=== PATIENT | male | born 1945 | race Caucasian/White ===

== ENCOUNTER → 2021-12-12 | Outpatient (REF) | payer MEDICARE, BC ==
[2021-12-12 17:48] LABS: HEMATOCRIT 29.6 % (42.0-52.0); HEMOGLOBIN 9.6 g/dl (13.5-17.5); MEAN CORPUSCULAR HEMOGLOBIN 29.8 pg (27.0-33.0); MEAN CORPUSCULAR HGB CONC 32.4 g/dl (32.0-36.5); MEAN CORPUSCULAR VOLUME 91.9 fl (80.0-96.0); PLATELET COUNT, AUTOMATED 181 10^3/uL (150-450); RED BLOOD COUNT 3.22 10^6/uL (4.30-6.10); WHITE BLOOD COUNT 16.1 10^3/uL (4.0-10.0)
[2021-12-12 18:15] LABS: ALBUMIN 3.3 GM/DL (3.2-5.2); ALT/SGPT 17 U/L (12-78); BILIRUBIN,TOTAL 0.5 MG/DL (0.2-1.0); BLOOD UREA NITROGEN 68 MG/DL (7-18); CALCIUM LEVEL 8.3 MG/DL (8.8-10.2); CARBON DIOXIDE LEVEL 23 MEQ/L (21-32); CHLORIDE LEVEL 111 MEQ/L (98-107); CHOLESTEROL LEVEL 90 MG/DL (<200); CHOLESTEROL RISK RATIO 1.914 (<5); CREATININE FOR GFR 2.37 MG/DL (0.70-1.30); FERRITIN 50 NG/ML (26-388); FREE T4 1.11 NG/DL (0.76-1.46); GLOMERULAR FILTRATION RATE 28.6 (>42); GLUCOSE, FASTING 136 MG/DL (70-100); HDL CHOLESTEROL 47 MG/DL (>40); IRON (FE) 35 UG/DL (65-175); LDL CHOLESTEROL 28 MG/DL (<100); NON-HDL-C 43 MG/DL; NT-PRO BNP 17508 PG/ML (<450); PERCENT SATURATION 17.5 % (19.7-50.0); POTASSIUM SERUM 3.9 MEQ/L (3.5-5.1); SODIUM LEVEL 141 MEQ/L (136-145); TOTAL IRON BINDING CAPACITY 200 UG/DL (250-450); TOTAL PROTEIN 5.6 GM/DL (6.4-8.2); TRIGLYCERIDES LEVEL 76 MG/DL (<150)
[2021-12-12 18:20] LABS: HEMOGLOBIN A1c 7.8 %
[2021-12-12 18:30] LABS: FOLATE > 24.0 NG/ML (>5.4); VITAMIN B12 LEVEL 581 PG/ML (247-911)
== END ==
LOC: M SFHCADAM 14:45
PROVIDERS: ATTEND Family Medicine
DX: L97.424 Non-pressure chronic ulcer of left heel and midfoot with necrosis of bone (principal); E08.621 Diabetes mellitus due to underlying condition with foot ulcer; M1A.30X0 Chronic gout due to renal impairment, unspecified site, without tophus (tophi); D64.89 Other specified anemias; I48.91 Unspecified atrial fibrillation; I73.9 Peripheral vascular disease, unspecified; I50.20 Unspecified systolic (congestive) heart failure

== ENCOUNTER → 2022-02-20 | Outpatient (CLI) | payer MEDICARE, BC ==
[~2022-02-20] MED LIST: ACET1TAB55 PO; ALLO100T PO; ATOR40TA75 PO; CARV3.12 PO; CVS1CAP2 PO; ELIQ5TAB PO; ENTR1TAB4 PO; EZET10TA21 PO; FLAX100012 PO; FOLI1TAB11 PO; INSUHUMDS SC; INSULANT SC; JARD1TAB PO; LEXA1TAB PO; MELA5TAB47 PO; PANT40TA29 PO; PLAV1TAB2 PO; TORS20TA2 PO; UBID200C PO
== END ==
LOC: M LABSMTC 10:55
PROVIDERS: ATTEND Anesthesiology
DX: Z01.818 Encounter for other preprocedural examination (principal); Z11.52 Encounter for screening for COVID-19

== ENCOUNTER → 2022-02-25 | Outpatient (CLI) | payer MEDICARE, BC ==
[~2022-02-25] MED LIST changes: +ISOVUE-300 61% 50ML VIAL As Ordered ONE; +LIDOCAINE 1% MDV 20ML VIAL As Ordered ONE; +MIDAZOLAM INJ 2MG/2ML VIAL (J2250 PER 1MG) As Ordered ONE; +NS 1,000 ML IV SCH; +ONDANSETRON 4MG 2ML VIAL As Ordered ONE; +PERCOCET 5MG/325MG TAB As Ordered ONE; +PROMETHAZINE 25MG/ML 1ML VIAL As Ordered ONE; +diphenhydrAMINE 50MG/ML VIAL (J1200) As Ordered ONE; +fentaNYL 100 MCG/2 ML INJECTION As Ordered ONE; +hydrALAZINE 20MG/ML 1ML VIAL (J0360 PER 20MG) As Ordered ONE
[2022-02-25 15:00] VITALS: BP 154/69
== END ==
LOC: M IRPRO 06:58
PROVIDERS: ATTEND Radiology Diagnostic Radiology
DX: I70.249 Atherosclerosis of native arteries of left leg with ulceration of unspecified site (principal); T88.9XXA Complication of surgical and medical care, unspecified, initial encounter; Z53.09 Procedure and treatment not carried out because of other contraindication; Z79.01 Long term (current) use of anticoagulants; Z79.4 Long term (current) use of insulin; Z79.899 Other long term (current) drug therapy; Y84.9 Medical procedure, unspecified as the cause of abnormal reaction of the patient, or of later complication, without mention of misadventure at the time of the procedure
CPT/HCPCS: 36246; 99152; 99153; C1769; C1894; J0360; J1200; J1644; J2250; J2405; J2550; J3010; Q9967

== ENCOUNTER → 2022-03-06 | Outpatient (REF) | payer MEDICARE, BC ==
[~2022-03-06] MED LIST changes: +AMIT25TA17 PO; +CARV25TA PO; +CETI-24 PO; +CLOP75TA99 PO; +DILA1INJ2 IV; +DILA4TAB13 PO; +DOXY100T PO; +GABA-282 PO; +HYDR2TAB2 PO; +INSUDET SC; -ISOVUE-300 61% 50ML VIAL As Ordered ONE; +LEXA5TAB13 PO; -LIDOCAINE 1% MDV 20ML VIAL As Ordered ONE; +LINE1TAB PO; +LINE1TAB6 PO; +MAGN400T2 PO; +MAGN400T33 PO; +META1POW PO; -MIDAZOLAM INJ 2MG/2ML VIAL (J2250 PER 1MG) As Ordered ONE; +MIRA1POW3 PO; -NS 1,000 ML IV SCH; -ONDANSETRON 4MG 2ML VIAL As Ordered ONE; +OXYC-517 PO; -PERCOCET 5MG/325MG TAB As Ordered ONE; -PLAV1TAB2 PO; -PROMETHAZINE 25MG/ML 1ML VIAL As Ordered ONE; +RA M10TA PO; +RAME8TAB2 PO; +ROZE8TAB16 PO; +SENN18TA PO; +SENN8.6T28 PO; +SODI650T PO; -diphenhydrAMINE 50MG/ML VIAL (J1200) As Ordered ONE; -fentaNYL 100 MCG/2 ML INJECTION As Ordered ONE; -hydrALAZINE 20MG/ML 1ML VIAL (J0360 PER 20MG) As Ordered ONE
== END ==
LOC: M SFHCWOUN 12:19
PROVIDERS: ATTEND Physician Assistant
DX: S91.104A Unspecified open wound of right lesser toe(s) without damage to nail, initial encounter (principal); X58.XXXA Exposure to other specified factors, initial encounter; Y92.9 Unspecified place or not applicable; M86.171 Other acute osteomyelitis, right ankle and foot

== ENCOUNTER → 2022-03-13 | Outpatient (REF) | payer MEDICARE, BC | LOC: M SFHCWOUN 12:24 | PROVIDERS: ATTEND Physician Assistant | DX: S91.104A Unspecified open wound of right lesser toe(s) without damage to nail, initial encounter (principal); X58.XXXA Exposure to other specified factors, initial encounter; Y92.9 Unspecified place or not applicable; Y93.9 Activity, unspecified; Y99.9 Unspecified external cause status ==

== ENCOUNTER → 2022-03-14 | Outpatient (REF) | payer MEDICARE, BC ==
[~2022-03-14] MED LIST changes: -AMIT25TA17 PO; -CARV25TA PO; -CETI-24 PO; -CLOP75TA99 PO; -DILA1INJ2 IV; -DILA4TAB13 PO; -DOXY100T PO; -GABA-282 PO; -HYDR2TAB2 PO; -INSUDET SC; -LEXA5TAB13 PO; -LINE1TAB PO; -LINE1TAB6 PO; -MAGN400T2 PO; -MAGN400T33 PO; -META1POW PO; -MIRA1POW3 PO; -OXYC-517 PO; +PLAV1TAB2 PO; -RA M10TA PO; -RAME8TAB2 PO; -ROZE8TAB16 PO; -SENN18TA PO; -SENN8.6T28 PO; -SODI650T PO
== END ==
LOC: M LAB REF 13:15
PROVIDERS: ATTEND Podiatrist Foot & Ankle Surgery
DX: S91.104A Unspecified open wound of right lesser toe(s) without damage to nail, initial encounter (principal); X58.XXXA Exposure to other specified factors, initial encounter; Y92.9 Unspecified place or not applicable; Y93.9 Activity, unspecified; Y99.9 Unspecified external cause status

== ENCOUNTER → 2022-03-19 | Outpatient (POV) | payer MEDICARE, BC ==
[~2022-03-19] VITALS: Ht 182.9 cm; Wt 103.1 kg
[~2022-03-19] MED LIST changes: +CARV25TA PO; +CETI-24 PO; +LEXA5TAB13 PO; +RA M10TA PO
[2022-03-19 12:55] VITALS: BP 136/63
== END ==
LOC: M IRPOV 12:44
PROVIDERS: ATTEND Radiology Diagnostic Radiology
DX: Z48.812 Encounter for surgical aftercare following surgery on the circulatory system (principal); I70.25 Atherosclerosis of native arteries of other extremities with ulceration; L97.419 Non-pressure chronic ulcer of right heel and midfoot with unspecified severity; Z89.421 Acquired absence of other right toe(s)

== ENCOUNTER → 2022-03-21 | Outpatient (CLI) | payer MEDICARE, BC ==
[~2022-03-21] MED LIST changes: -CARV25TA PO; -CETI-24 PO; -LEXA5TAB13 PO; -RA M10TA PO
== END ==
LOC: M LABSMTC 11:34
PROVIDERS: ATTEND Anesthesiology
DX: Z01.812 Encounter for preprocedural laboratory examination (principal); Z11.52 Encounter for screening for COVID-19

== ENCOUNTER 2022-03-28 17:27 | Inpatient (IN) | payer MEDICARE, BC ==
[~2022-03-28] VITALS: Ht 182.9 cm; Wt 98.1 kg
[~2022-03-28 17:27] MED LIST changes: +CARV25TA PO; +CETI-24 PO; +CLOP75TA99 PO; +GABA-282 PO; +LEXA5TAB13 PO; +LINE1TAB PO; +MAGN400T2 PO; +OXYC-517 PO; -PLAV1TAB2 PO; +RA M10TA PO; +SODI650T PO
[2022-03-28] MEDS: INSULIN LISPRO (NovoLOG) PER UNIT SC SCH ×2 (17:30→21:00)
[2022-03-28 17:55] VITALS: BP 119/55
[2022-03-28] MEDS ORDERED: GLUCOSE 4GM CHEW TABLET PO PRN (18:55)
[2022-03-28] MEDS ORDERED: GLUCAGON INJ 1MG VIAL SC PRN (18:55)
[2022-03-28 19:07] LABS: HEMATOCRIT 27.5 % (42.0-52.0); HEMOGLOBIN 8.7 g/dl (13.5-17.5); MEAN CORPUSCULAR HEMOGLOBIN 29.5 pg (27.0-33.0); MEAN CORPUSCULAR HGB CONC 31.6 g/dl (32.0-36.5); MEAN CORPUSCULAR VOLUME 93.2 fl (80.0-96.0); PLATELET COUNT, AUTOMATED 285 10^3/uL (150-450); RED BLOOD COUNT 2.95 10^6/uL (4.30-6.10); WHITE BLOOD COUNT 22.6 10^3/uL (4.0-10.0)
[2022-03-28 19:11] LABS: INR 2.11; PARTIAL THROMBOPLASTIN TIME 35.7 SECONDS (24.8-34.2)
[2022-03-28 19:21] LABS: ALBUMIN 2.7 GM/DL (3.2-5.2); BILIRUBIN,TOTAL 0.7 MG/DL (0.2-1.0); CREATININE FOR GFR 2.85 MG/DL (0.70-1.30); GLOMERULAR FILTRATION RATE 23.1 (>42); POTASSIUM SERUM 4.9 MEQ/L (3.5-5.1); TOTAL PROTEIN 5.5 GM/DL (6.4-8.2)
[2022-03-28] MEDS: CARVedilol 12.5 MG TAB PO SCH (21:00)
[2022-03-28] MEDS ORDERED: LEVEMIR (INSULIN DETEMIR) 1 UNITS/0.01ML SC SCH (21:00)
[2022-03-28] MEDS ORDERED: GABA-282 PO (21:43)
[2022-03-28] MEDS ORDERED: LINE1TAB6 PO (21:43)
[2022-03-28] MEDS ORDERED: SODI650T PO (21:43)
[2022-03-28] MEDS ORDERED: MAGN400T33 PO (21:43)
[2022-03-28] MEDS ORDERED: DOXY100T PO (21:43)
[2022-03-28] MEDS ORDERED: HOME MED LIST COMPLETE! XX SCH (21:45)
[2022-03-28 22:00] VITALS: BP 113/49
[2022-03-28] MEDS ORDERED: VANCOMYCIN HCL 1,000 MG, VIAL MATE ADAPTER 1 EACH in NS 250 ML IV SCH (23:00)
[2022-03-28] MEDS: ATORVASTATIN 20 MG TAB PO SCH (23:15)
[2022-03-28] MEDS: APIXABAN 5 MG TAB (ELIQUIS) PO SCH (23:15)
[2022-03-28] MEDS: SODIUM BICARBONATE 325 MG TAB PO SCH (23:16)
[2022-03-28] MEDS: EZETIMIBE 10MG TABLET (ZETIA) PO SCH (23:16)
[2022-03-29] MEDS ORDERED: VANCOMYCIN HCL 1,000 MG, VIAL MATE ADAPTER 1 EACH in NS 250 ML IV ONE ×3
[2022-03-29 06:00] VITALS: BP 111/47
[2022-03-29 07:02] LABS: BASO % 0.2 % (0.0-1.0); EOS # 0.1 10^3/uL (0.0-0.5); EOS % 0.4 % (0.0-3.0); HEMATOCRIT 26.3 % (42.0-52.0); HEMOGLOBIN 8.5 g/dl (13.5-17.5); LYMPH # 0.7 10^3/uL (1.5-5.0); LYMPH % 4.3 % (24.0-44.0); MEAN CORPUSCULAR HEMOGLOBIN 29.6 pg (27.0-33.0); MEAN CORPUSCULAR HGB CONC 32.3 g/dl (32.0-36.5); MEAN CORPUSCULAR VOLUME 91.6 fl (80.0-96.0); MONO # 1.5 10^3/uL (0.0-0.8); MONO % 8.5 % (2.0-8.0); NEUTROPHILS # 14.6 10^3/uL (1.5-8.5); PLATELET COUNT, AUTOMATED 260 10^3/uL (150-450); RED BLOOD COUNT 2.87 10^6/uL (4.30-6.10)
[2022-03-29 07:53] LABS: CALCIUM LEVEL 8.4 MG/DL (8.8-10.2); CREATININE FOR GFR 2.8 MG/DL (0.70-1.30); GLOMERULAR FILTRATION RATE 23.6 (>42); POTASSIUM SERUM 4.8 MEQ/L (3.5-5.1)
[2022-03-29] MEDS: CARVedilol 12.5 MG TAB PO SCH ×2 (08:03→21:00)
[2022-03-29] MEDS: INSULIN LISPRO (NovoLOG) PER UNIT SC SCH ×3 (08:14→17:37)
[2022-03-29] MEDS: APIXABAN 5 MG TAB (ELIQUIS) PO SCH (08:14)
[2022-03-29] MEDS: GABAPENTIN 300 MG CAP PO SCH (08:14)
[2022-03-29] MEDS: ESCITALOPRAM OXALATE 5MG TABLET (LEXAPRO) PO SCH (08:14)
[2022-03-29] MEDS: CLOPIDOGREL 75 MG TAB PO SCH (08:14)
[2022-03-29] MEDS: SODIUM BICARBONATE 325 MG TAB PO SCH ×2 (08:15→20:05)
[2022-03-29] MEDS: PANTOPRAZOLE 40MG TAB (PROTONIX) PO SCH (08:15)
[2022-03-29] MEDS: allopurinoL 100 MG TAB PO SCH (08:15)
[2022-03-29] MEDS: FOLIC ACID 1MG TAB PO SCH (08:15)
[2022-03-29] MEDS: LEVEMIR (INSULIN DETEMIR) 1 UNITS/0.01ML SC SCH (09:00)
[2022-03-29 14:00] VITALS: BP 108/44
[2022-03-29] MEDS ORDERED: LEVEMIR (INSULIN DETEMIR) 1 UNITS/0.01ML SC ONE (17:00)
[2022-03-29] MEDS: TORSEMIDE 20 MG TAB PO SCH (17:38)
[2022-03-29] MEDS ORDERED: oxyCODONE 5MG TAB PO PRN (19:35)
[2022-03-29] MEDS: carisoprodoL 350 MG TAB PO PRN (20:04)
[2022-03-29] MEDS: EZETIMIBE 10MG TABLET (ZETIA) PO SCH (20:04)
[2022-03-29] MEDS: RAMELTEON 8 MG TAB (ROZEREM) PO PRN (20:04)
[2022-03-29] MEDS: ATORVASTATIN 20 MG TAB PO SCH (20:05)
[2022-03-29] MEDS: ACETAMINOPHEN TAB 650MG DOSE (2X325MG) PO PRN (20:05)
[2022-03-29 21:26] VITALS: BP 108/43
[2022-03-30] VITALS (10 sets, daily range): BP systolic 118–144; BP diastolic 47–64; O2SAT 96
[2022-03-30] MEDS ORDERED: VANCOMYCIN HCL 500 MG in D5W MINI-BAG PLUS 100 ML IV SCH ×2
[2022-03-30 07:18] LABS: BASO % 0.3 % (0.0-1.0); EOS # 0.3 10^3/uL (0.0-0.5); EOS % 2.4 % (0.0-3.0); HEMATOCRIT 25.5 % (42.0-52.0); LYMPH # 1.3 10^3/uL (1.5-5.0); MEAN CORPUSCULAR HEMOGLOBIN 29.2 pg (27.0-33.0); MEAN CORPUSCULAR HGB CONC 31.4 g/dl (32.0-36.5); MEAN CORPUSCULAR VOLUME 93.1 fl (80.0-96.0); MONO % 12.6 % (2.0-8.0); NEUTROPHILS # 10.7 10^3/uL (1.5-8.5); NEUTROPHILS % 74.9 % (36.0-66.0); PLATELET COUNT, AUTOMATED 251 10^3/uL (150-450); RED BLOOD COUNT 2.74 10^6/uL (4.30-6.10); WHITE BLOOD COUNT 14.3 10^3/uL (4.0-10.0)
[2022-03-30] MEDS ORDERED: LIDOCAINE 2% 100MG/5ML SDV (FOR ANES.) As Ordered ONE (07:24)
[2022-03-30] MEDS ORDERED: fentaNYL 100 MCG/2 ML INJECTION As Ordered ONE (07:24)
[2022-03-30] MEDS ORDERED: propofoL 200 MG/20 ML VIAL As Ordered ONE (07:24)
[2022-03-30] MEDS ORDERED: ONDANSETRON 4MG 2ML VIAL As Ordered ONE (07:25)
[2022-03-30 07:26] LABS: CALCIUM LEVEL 8.2 MG/DL (8.8-10.2); CREATININE FOR GFR 2.76 MG/DL (0.70-1.30)
[2022-03-30] MEDS ORDERED: LIDOCAINE 1% MDV 20ML VIAL As Ordered ONE (07:28)
[2022-03-30] MEDS ORDERED: BUPIVACAINE HCL 0.5% 30ML VIAL As Ordered ONE (07:28)
[2022-03-30] MEDS: INSULIN LISPRO (NovoLOG) PER UNIT SC SCH ×4 (07:30→21:00)
[2022-03-30 08:13] LABS: MONO # 1.8 10^3/uL (0.0-0.8)
[2022-03-30 08:17] LABS: CRENATED RBC 2+; OVALOCYTES 2+
[2022-03-30 08:18] LABS: PLATELET CLUMPS SMALL AMT; PLATELET ESTIMATE NORMAL (NORMAL); POIKILOCYTOSIS 2+; SCHISTOCYTES 1+
[2022-03-30] MEDS ORDERED: INSULIN LISPRO (NovoLOG) PER UNIT SC PRN (08:40)
[2022-03-30] MEDS ORDERED: ONDANSETRON 4MG 2ML VIAL IV PRN (08:40)
[2022-03-30] MEDS ORDERED: oxyCODONE 5MG TAB PO PRN (08:40)
[2022-03-30] MEDS ORDERED: fentaNYL 100 MCG/2 ML INJECTION IV PRN (08:40)
[2022-03-30] MEDS: LEVEMIR (INSULIN DETEMIR) 1 UNITS/0.01ML SC SCH (09:00)
[2022-03-30] MEDS: CARVedilol 12.5 MG TAB PO SCH ×2 (09:00→20:06)
[2022-03-30] MEDS: CLOPIDOGREL 75 MG TAB PO SCH (09:00)
[2022-03-30] MEDS ORDERED: ePHEDrine SULFATE 25 MG/5 ML(5MG/ML) SYRINGE As Ordered ONE (09:04)
[2022-03-30] MEDS: PANTOPRAZOLE 40MG TAB (PROTONIX) PO SCH (10:56)
[2022-03-30] MEDS: TORSEMIDE 20 MG TAB PO SCH ×2 (10:57→17:15)
[2022-03-30] MEDS: ESCITALOPRAM OXALATE 5MG TABLET (LEXAPRO) PO SCH (10:57)
[2022-03-30] MEDS: allopurinoL 100 MG TAB PO SCH (10:57)
[2022-03-30] MEDS: SODIUM BICARBONATE 325 MG TAB PO SCH ×2 (10:57→20:05)
[2022-03-30] MEDS: FOLIC ACID 1MG TAB PO SCH (10:57)
[2022-03-30] MEDS: GABAPENTIN 300 MG CAP PO SCH (10:57)
[2022-03-30] MEDS ORDERED: VANCOMYCIN HCL 1,000 MG, VIAL MATE ADAPTER 1 EACH in NS 250 ML IV SCH (12:00)
[2022-03-30] MEDS: traMADol 50 MG TAB PO PRN ×2 (13:14→20:08)
[2022-03-30] MEDS: carisoprodoL 350 MG TAB PO PRN (14:56)
[2022-03-30] MEDS ORDERED: MORPHINE 2 MG/ML 1ML VIAL IV ONE (18:00)
[2022-03-30] MEDS ORDERED: GABAPENTIN 100 MG CAP PO ONE (20:00)
[2022-03-30] MEDS: EZETIMIBE 10MG TABLET (ZETIA) PO SCH (20:07)
[2022-03-30] MEDS: ATORVASTATIN 20 MG TAB PO SCH (20:07)
[2022-03-30] MEDS: RAMELTEON 8 MG TAB (ROZEREM) PO PRN (20:07)
[2022-03-30] MEDS: ACETAMINOPHEN TAB 650MG DOSE (2X325MG) PO PRN (20:08)
[2022-03-31 02:00] VITALS: BP 125/55
[2022-03-31] MEDS: ACETAMINOPHEN TAB 650MG DOSE (2X325MG) PO PRN ×2 (04:23→12:36)
[2022-03-31] MEDS: traMADol 50 MG TAB PO PRN ×2 (04:24→12:36)
[2022-03-31 06:00] VITALS: BP 119/52
[2022-03-31 07:06] LABS: BASO % 0.1 % (0.0-1.0); EOS # 0.4 10^3/uL (0.0-0.5); EOS % 2.4 % (0.0-3.0); HEMATOCRIT 25.8 % (42.0-52.0); LYMPH # 0.9 10^3/uL (1.5-5.0); LYMPH % 5.5 % (24.0-44.0); MEAN CORPUSCULAR VOLUME 93.5 fl (80.0-96.0); MONO # 1.3 10^3/uL (0.0-0.8); MONO % 8.4 % (2.0-8.0); NEUTROPHILS # 12.7 10^3/uL (1.5-8.5); NEUTROPHILS % 82.9 % (36.0-66.0); PLATELET COUNT, AUTOMATED 255 10^3/uL (150-450); RED BLOOD COUNT 2.76 10^6/uL (4.30-6.10); WHITE BLOOD COUNT 15.4 10^3/uL (4.0-10.0)
[2022-03-31 07:41] LABS: CALCIUM LEVEL 7.8 MG/DL (8.8-10.2); CREATININE FOR GFR 2.64 MG/DL (0.70-1.30); GLOMERULAR FILTRATION RATE 25.2 (>42); POTASSIUM SERUM 4.4 MEQ/L (3.5-5.1)
[2022-03-31] MEDS: INSULIN LISPRO (NovoLOG) PER UNIT SC SCH ×4 (08:36→20:31)
[2022-03-31] MEDS: CLOPIDOGREL 75 MG TAB PO SCH (08:36)
[2022-03-31] MEDS: LEVEMIR (INSULIN DETEMIR) 1 UNITS/0.01ML SC SCH (08:36)
[2022-03-31] MEDS: ESCITALOPRAM OXALATE 5MG TABLET (LEXAPRO) PO SCH (08:36)
[2022-03-31] MEDS: GABAPENTIN 300 MG CAP PO SCH (08:36)
[2022-03-31] MEDS: FOLIC ACID 1MG TAB PO SCH (08:37)
[2022-03-31] MEDS: TORSEMIDE 20 MG TAB PO SCH ×2 (08:37→17:20)
[2022-03-31] MEDS: PANTOPRAZOLE 40MG TAB (PROTONIX) PO SCH (08:37)
[2022-03-31] MEDS: allopurinoL 100 MG TAB PO SCH (08:37)
[2022-03-31] MEDS: CARVedilol 12.5 MG TAB PO SCH ×2 (08:37→20:29)
[2022-03-31] MEDS: SODIUM BICARBONATE 325 MG TAB PO SCH ×2 (08:37→20:28)
[2022-03-31] MEDS: NORCO, ANEXSIA 5/325MG TABLET (HYDROcodone/ACETAMINOPHEN) PO PRN ×2 (08:41→20:29)
[2022-03-31 10:00] VITALS: BP 107/35
[2022-03-31] MEDS: APIXABAN 5 MG TAB (ELIQUIS) PO SCH ×2 (10:01→20:28)
[2022-03-31 14:00] VITALS: BP 107/36
[2022-03-31] MEDS ORDERED: BISACODYL 10 MG SUPP PR PRN (19:30)
[2022-03-31] MEDS: ATORVASTATIN 20 MG TAB PO SCH (20:28)
[2022-03-31] MEDS: RAMELTEON 8 MG TAB (ROZEREM) PO PRN (20:28)
[2022-03-31] MEDS: DOCUSATE SODIUM 100MG CAPSULE PO SCH (20:28)
[2022-03-31] MEDS: EZETIMIBE 10MG TABLET (ZETIA) PO SCH (20:28)
[2022-03-31] MEDS: carisoprodoL 350 MG TAB PO PRN (20:28)
[2022-03-31 21:00] VITALS: O2SAT 96
[2022-03-31 22:00] VITALS: BP 109/38
[2022-03-31] MEDS: VANCOMYCIN HCL 750 MG, VIAL MATE ADAPTER 1 EACH in D5W 250 ML IV SCH (22:44)
[2022-04-01] VITALS (8 sets, daily range): BP systolic 110–121; BP diastolic 44–80
[2022-04-01] MEDS: carisoprodoL 350 MG TAB PO PRN ×2 (05:47→23:07)
[2022-04-01] MEDS: traMADol 50 MG TAB PO PRN ×2 (05:48→22:44)
[2022-04-01 06:01] LABS: BASO % 0.2 % (0.0-1.0); EOS # 0.5 10^3/uL (0.0-0.5); EOS % 2.7 % (0.0-3.0); HEMATOCRIT 23.3 % (42.0-52.0); HEMOGLOBIN 7.4 g/dl (13.5-17.5); LYMPH # 1.4 10^3/uL (1.5-5.0); LYMPH % 8.2 % (24.0-44.0); MEAN CORPUSCULAR HEMOGLOBIN 29.4 pg (27.0-33.0); MEAN CORPUSCULAR HGB CONC 31.8 g/dl (32.0-36.5); MEAN CORPUSCULAR VOLUME 92.5 fl (80.0-96.0); MONO # 1.5 10^3/uL (0.0-0.8); MONO % 8.7 % (2.0-8.0); NEUTROPHILS # 13.4 10^3/uL (1.5-8.5); NEUTROPHILS % 79.5 % (36.0-66.0); PLATELET COUNT, AUTOMATED 252 10^3/uL (150-450); RED BLOOD COUNT 2.52 10^6/uL (4.30-6.10); WHITE BLOOD COUNT 16.8 10^3/uL (4.0-10.0)
[2022-04-01 06:38] LABS: CALCIUM LEVEL 7.6 MG/DL (8.8-10.2); CREATININE FOR GFR 2.6 MG/DL (0.70-1.30); GLOMERULAR FILTRATION RATE 25.7 (>42); POTASSIUM SERUM 4.2 MEQ/L (3.5-5.1)
[2022-04-01] MEDS: allopurinoL 100 MG TAB PO SCH (08:18)
[2022-04-01] MEDS: GABAPENTIN 300 MG CAP PO SCH (08:18)
[2022-04-01] MEDS: TORSEMIDE 20 MG TAB PO SCH ×2 (08:19→17:39)
[2022-04-01] MEDS: LACTOBACILLUS ACIDOPHILUS CAP (BACID) PO SCH (08:19)
[2022-04-01] MEDS: CLOPIDOGREL 75 MG TAB PO SCH (08:19)
[2022-04-01] MEDS: SODIUM BICARBONATE 325 MG TAB PO SCH ×2 (08:19→21:00)
[2022-04-01] MEDS: ESCITALOPRAM OXALATE 5MG TABLET (LEXAPRO) PO SCH (08:19)
[2022-04-01] MEDS: DOCUSATE SODIUM 100MG CAPSULE PO SCH ×2 (08:19→20:59)
[2022-04-01] MEDS: APIXABAN 5 MG TAB (ELIQUIS) PO SCH ×2 (08:19→20:59)
[2022-04-01] MEDS: FOLIC ACID 1MG TAB PO SCH (08:19)
[2022-04-01] MEDS: PANTOPRAZOLE 40MG TAB (PROTONIX) PO SCH (08:19)
[2022-04-01] MEDS: INSULIN LISPRO (NovoLOG) PER UNIT SC SCH ×4 (08:20→20:56)
[2022-04-01] MEDS: MIRALAX *UNIT DOSE* 17GM PACKET PO SCH (08:20)
[2022-04-01] MEDS: CARVedilol 12.5 MG TAB PO SCH ×2 (08:24→21:00)
[2022-04-01] MEDS: LEVEMIR (INSULIN DETEMIR) 1 UNITS/0.01ML SC SCH (08:25)
[2022-04-01] MEDS: NORCO, ANEXSIA 5/325MG TABLET (HYDROcodone/ACETAMINOPHEN) PO PRN ×2 (12:12→21:02)
[2022-04-01] MEDS: ATORVASTATIN 20 MG TAB PO SCH (20:59)
[2022-04-01] MEDS: EZETIMIBE 10MG TABLET (ZETIA) PO SCH (21:00)
[2022-04-01] MEDS: VANCOMYCIN HCL 750 MG, VIAL MATE ADAPTER 1 EACH in D5W 250 ML IV SCH (22:44)
[2022-04-01] MEDS ORDERED: oxyCODONE 5MG TAB PO ONE (23:25)
[2022-04-01] MEDS: ONDANSETRON 4MG 2ML VIAL IV PRN (23:31)
[2022-04-02] VITALS (9 sets, daily range): BP systolic 96–109; BP diastolic 45–56
[2022-04-02] MEDS ORDERED: MORPHINE 2 MG/ML 1ML VIAL IV ONE
[2022-04-02] MEDS ORDERED: oxyCODONE 5MG TAB PO ONE ×2 (00:10→15:40)
[2022-04-02] MEDS ORDERED: GABAPENTIN 100 MG CAP PO ONE (00:30)
[2022-04-02] MEDS ORDERED: ACETAMINOPHEN 500 MG TAB PO ONE (00:30)
[2022-04-02 06:14] LABS: BASO % 0.2 % (0.0-1.0); EOS # 0.3 10^3/uL (0.0-0.5); LYMPH # 1.4 10^3/uL (1.5-5.0); LYMPH % 8.5 % (24.0-44.0); MEAN CORPUSCULAR HGB CONC 31.8 g/dl (32.0-36.5); MEAN CORPUSCULAR VOLUME 91.3 fl (80.0-96.0); MONO # 1.4 10^3/uL (0.0-0.8); MONO % 8.5 % (2.0-8.0); NEUTROPHILS # 12.9 10^3/uL (1.5-8.5); NEUTROPHILS % 80.1 % (36.0-66.0); PLATELET COUNT, AUTOMATED 231 10^3/uL (150-450); RED BLOOD COUNT 2.41 10^6/uL (4.30-6.10); WHITE BLOOD COUNT 16.2 10^3/uL (4.0-10.0)
[2022-04-02 07:01] LABS: CALCIUM LEVEL 7.6 MG/DL (8.8-10.2); CREATININE FOR GFR 2.69 MG/DL (0.70-1.30); GLOMERULAR FILTRATION RATE 24.7 (>42); POTASSIUM SERUM 4.3 MEQ/L (3.5-5.1)
[2022-04-02] MEDS ORDERED: HYDROMORPHONE HCL 0.5 MG/ 0.5 ML SYRINGE (J1170 PER 1) IV ONE (08:05)
[2022-04-02] MEDS ORDERED: oxyCODONE 5MG TAB PO PRN ×2 (08:05→15:40)
[2022-04-02] MEDS ORDERED: NALOXONE INJ 0.4MG/1ML VIAL (J2310 PER 1MG) IV PRN (08:05)
[2022-04-02] MEDS: INSULIN LISPRO (NovoLOG) PER UNIT SC SCH ×4 (08:41→21:00)
[2022-04-02] MEDS: LEVEMIR (INSULIN DETEMIR) 1 UNITS/0.01ML SC SCH (08:43)
[2022-04-02] MEDS: MIRALAX *UNIT DOSE* 17GM PACKET PO SCH (08:43)
[2022-04-02] MEDS: PANTOPRAZOLE 40MG TAB (PROTONIX) PO SCH (08:44)
[2022-04-02] MEDS: GABAPENTIN 300 MG CAP PO SCH ×2 (08:44→20:28)
[2022-04-02] MEDS: LACTOBACILLUS ACIDOPHILUS CAP (BACID) PO SCH (08:44)
[2022-04-02] MEDS: APIXABAN 5 MG TAB (ELIQUIS) PO SCH ×2 (08:44→20:28)
[2022-04-02] MEDS: SODIUM BICARBONATE 325 MG TAB PO SCH ×2 (08:44→20:28)
[2022-04-02] MEDS: DOCUSATE SODIUM 100MG CAPSULE PO SCH ×2 (08:44→20:28)
[2022-04-02] MEDS: FOLIC ACID 1MG TAB PO SCH (08:44)
[2022-04-02] MEDS: ESCITALOPRAM OXALATE 5MG TABLET (LEXAPRO) PO SCH (08:44)
[2022-04-02] MEDS: CLOPIDOGREL 75 MG TAB PO SCH (08:44)
[2022-04-02] MEDS: TORSEMIDE 20 MG TAB PO SCH (08:45)
[2022-04-02] MEDS: allopurinoL 100 MG TAB PO SCH (08:45)
[2022-04-02] MEDS ORDERED: oxyCODONE 10 MG CR TAB PO SCH (09:00)
[2022-04-02] MEDS: CARVedilol 12.5 MG TAB PO SCH ×2 (09:00→21:00)
[2022-04-02] MEDS ORDERED: VANCOMYCIN HCL 500 MG in D5W MINI-BAG PLUS 100 ML IV SCH (14:00)
[2022-04-02] MEDS: ONDANSETRON 4MG 2ML VIAL IV PRN (16:32)
[2022-04-02] MEDS: TORSEMIDE 10 MG TABLET PO SCH (16:38)
[2022-04-02] MEDS: AMPICILLIN SOD/SULBACTAM SOD 1.5 GM in D5W MINI-BAG PLUS 50 ML IV SCH (16:55)
[2022-04-02] MEDS ORDERED: PIPERACILLIN/TAZOBACTAM SOD 2.25 GM in D5W MINI-BAG PLUS 50 ML IV SCH (17:00)
[2022-04-02] MEDS: carisoprodoL 350 MG TAB PO PRN (18:49)
[2022-04-02] MEDS: ACETAMINOPHEN TAB 650MG DOSE (2X325MG) PO PRN (18:51)
[2022-04-02] MEDS: ATORVASTATIN 20 MG TAB PO SCH (20:28)
[2022-04-02] MEDS: EZETIMIBE 10MG TABLET (ZETIA) PO SCH (20:28)
[2022-04-02] MEDS ORDERED: oxyCODONE 15 MG CR TAB PO SCH (21:00)
[2022-04-02] MEDS: MORPHINE 30 MG TAB **MSIR PO PRN (21:34)
[2022-04-02] MEDS: DEXTROSE 50% 50 ML SYRINGE IV PRN (22:55)
[2022-04-03] VITALS (14 sets, daily range): BP systolic 107–142; BP diastolic 44–78
[2022-04-03] MEDS: AMPICILLIN SOD/SULBACTAM SOD 1.5 GM in D5W MINI-BAG PLUS 50 ML IV SCH ×5 (00:36→23:25)
[2022-04-03] MEDS: MORPHINE 30 MG TAB **MSIR PO PRN ×3 (02:44→18:03)
[2022-04-03] MEDS ORDERED: ACETAMINOPHEN 1000MG 100ML IV BAG IV ONE (05:20)
[2022-04-03] MEDS ORDERED: NORCO, ANEXSIA 5/325MG TABLET (HYDROcodone/ACETAMINOPHEN) PO PRN (05:20)
[2022-04-03] MEDS: DEXTROSE 50% 50 ML SYRINGE IV PRN (05:46)
[2022-04-03 06:52] LABS: BASO % 0.1 % (0.0-1.0); EOS # 0.3 10^3/uL (0.0-0.5); EOS % 1.7 % (0.0-3.0); HEMOGLOBIN 7.7 g/dl (13.5-17.5); LYMPH # 0.9 10^3/uL (1.5-5.0); LYMPH % 4.1 % (24.0-44.0); MEAN CORPUSCULAR HEMOGLOBIN 29.5 pg (27.0-33.0); MEAN CORPUSCULAR HGB CONC 32.1 g/dl (32.0-36.5); MONO % 10.1 % (2.0-8.0); NEUTROPHILS # 17.1 10^3/uL (1.5-8.5); NEUTROPHILS % 83.3 % (36.0-66.0); PLATELET COUNT, AUTOMATED 228 10^3/uL (150-450); RED BLOOD COUNT 2.61 10^6/uL (4.30-6.10); WHITE BLOOD COUNT 20.5 10^3/uL (4.0-10.0)
[2022-04-03 07:28] LABS: CALCIUM LEVEL 7.9 MG/DL (8.8-10.2); CREATININE FOR GFR 2.89 MG/DL (0.70-1.30); GLOMERULAR FILTRATION RATE 22.7 (>42); POTASSIUM SERUM 4.4 MEQ/L (3.5-5.1)
[2022-04-03] MEDS: INSULIN LISPRO (NovoLOG) PER UNIT SC SCH ×4 (07:30→20:54)
[2022-04-03 07:34] LABS: MONO # 2.1 10^3/uL (0.0-0.8)
[2022-04-03] MEDS: ONDANSETRON 4MG 2ML VIAL IV PRN ×2 (07:55→14:39)
[2022-04-03] MEDS: LEVEMIR (INSULIN DETEMIR) 1 UNITS/0.01ML SC SCH (08:45)
[2022-04-03] MEDS: TORSEMIDE 10 MG TABLET PO SCH ×2 (09:57→17:40)
[2022-04-03] MEDS: allopurinoL 100 MG TAB PO SCH (09:59)
[2022-04-03] MEDS: CLOPIDOGREL 75 MG TAB PO SCH (10:01)
[2022-04-03] MEDS: CARVedilol 12.5 MG TAB PO SCH ×2 (10:02→20:52)
[2022-04-03] MEDS: PANTOPRAZOLE 40MG TAB (PROTONIX) PO SCH (10:03)
[2022-04-03] MEDS: FOLIC ACID 1MG TAB PO SCH (10:03)
[2022-04-03] MEDS: GABAPENTIN 300 MG CAP PO SCH ×2 (10:03→20:53)
[2022-04-03 10:04] LABS: C REACTIVE PROTEIN QUANTITATIV 12.5 MG/DL (0.00-0.30)
[2022-04-03] MEDS: ESCITALOPRAM OXALATE 5MG TABLET (LEXAPRO) PO SCH (10:04)
[2022-04-03] MEDS: MIRALAX *UNIT DOSE* 17GM PACKET PO SCH (10:04)
[2022-04-03 10:05] LABS: ERYTHROCYTE SEDIMENTATION RATE 64 mm/hr (0-20)
[2022-04-03] MEDS: SODIUM BICARBONATE 325 MG TAB PO SCH ×2 (10:05→20:53)
[2022-04-03] MEDS: DOCUSATE SODIUM 100MG CAPSULE PO SCH ×2 (10:05→20:52)
[2022-04-03] MEDS: LACTOBACILLUS ACIDOPHILUS CAP (BACID) PO SCH (10:05)
[2022-04-03] MEDS: ACETAMINOPHEN TAB 650MG DOSE (2X325MG) PO PRN (12:43)
[2022-04-03] MEDS: carisoprodoL 350 MG TAB PO PRN (12:43)
[2022-04-03 19:02] LABS: ALBUMIN 2.1 GM/DL (3.2-5.2); BILIRUBIN,DIRECT 0.6 MG/DL (0.0-0.2); CALCIUM LEVEL 8.1 MG/DL (8.8-10.2); CREATININE FOR GFR 2.96 MG/DL (0.70-1.30); GLOMERULAR FILTRATION RATE 22.1 (>42); MAGNESIUM LEVEL 1.4 MG/DL (1.8-2.4); POTASSIUM SERUM 4.9 MEQ/L (3.5-5.1); TOTAL PROTEIN 5.2 GM/DL (6.4-8.2)
[2022-04-03] MEDS: MORPHINE 2 MG/ML 1ML VIAL IV PRN ×2 (20:14→23:25)
[2022-04-03 20:17] LABS: HEMATOCRIT 25.4 % (42.0-52.0); HEMOGLOBIN 8.3 g/dl (13.5-17.5)
[2022-04-03] MEDS: ATORVASTATIN 20 MG TAB PO SCH (20:52)
[2022-04-03] MEDS: TAMSULOSIN 0.4 MG CAP PO SCH (20:52)
[2022-04-03] MEDS: EZETIMIBE 10MG TABLET (ZETIA) PO SCH (20:53)
[2022-04-03] MEDS: SENNA 8.6 MG TAB (SENOKOT) PO SCH (20:53)
[2022-04-04] MEDS: AMPICILLIN SOD/SULBACTAM SOD 1.5 GM in D5W MINI-BAG PLUS 50 ML IV SCH ×4 (05:03→23:19)
[2022-04-04 05:33] VITALS: BP 140/58
[2022-04-04] MEDS: INSULIN LISPRO (NovoLOG) PER UNIT SC SCH ×5 (06:00→19:57)
[2022-04-04] MEDS ORDERED: FLEET ENEMA PR ONE (07:30)
[2022-04-04 07:32] LABS: BASO % 0.1 % (0.0-1.0); EOS # 0.2 10^3/uL (0.0-0.5); EOS % 1.3 % (0.0-3.0); HEMATOCRIT 25.2 % (42.0-52.0); HEMOGLOBIN 8.2 g/dl (13.5-17.5); LYMPH # 0.9 10^3/uL (1.5-5.0); LYMPH % 5.7 % (24.0-44.0); MEAN CORPUSCULAR HEMOGLOBIN 29.1 pg (27.0-33.0); MEAN CORPUSCULAR HGB CONC 32.5 g/dl (32.0-36.5); MEAN CORPUSCULAR VOLUME 89.4 fl (80.0-96.0); MONO % 10.8 % (2.0-8.0); NEUTROPHILS # 13.3 10^3/uL (1.5-8.5); NEUTROPHILS % 81.4 % (36.0-66.0); PLATELET COUNT, AUTOMATED 215 10^3/uL (150-450); RED BLOOD COUNT 2.82 10^6/uL (4.30-6.10); WHITE BLOOD COUNT 16.4 10^3/uL (4.0-10.0)
[2022-04-04 08:06] LABS: CALCIUM LEVEL 8.3 MG/DL (8.8-10.2); CREATININE FOR GFR 2.9 MG/DL (0.70-1.30); GLOMERULAR FILTRATION RATE 22.6 (>42); POTASSIUM SERUM 4.2 MEQ/L (3.5-5.1)
[2022-04-04 08:41] LABS: MONO # 1.8 10^3/uL (0.0-0.8)
[2022-04-04] MEDS: LEVEMIR (INSULIN DETEMIR) 1 UNITS/0.01ML SC SCH (08:43)
[2022-04-04] MEDS: LACTOBACILLUS ACIDOPHILUS CAP (BACID) PO SCH (08:54)
[2022-04-04] MEDS: GABAPENTIN 300 MG CAP PO SCH ×2 (08:54→20:03)
[2022-04-04] MEDS: FOLIC ACID 1MG TAB PO SCH (08:54)
[2022-04-04] MEDS: ESCITALOPRAM OXALATE 5MG TABLET (LEXAPRO) PO SCH (08:54)
[2022-04-04] MEDS: carisoprodoL 350 MG TAB PO PRN ×2 (08:54→21:47)
[2022-04-04] MEDS: allopurinoL 100 MG TAB PO SCH (08:55)
[2022-04-04] MEDS: SODIUM BICARBONATE 325 MG TAB PO SCH ×2 (08:55→20:03)
[2022-04-04] MEDS: DOCUSATE SODIUM 100MG CAPSULE PO SCH ×2 (08:55→20:03)
[2022-04-04] MEDS: CLOPIDOGREL 75 MG TAB PO SCH (08:55)
[2022-04-04] MEDS: TORSEMIDE 10 MG TABLET PO SCH ×2 (08:55→17:40)
[2022-04-04] MEDS: PANTOPRAZOLE 40MG TAB (PROTONIX) PO SCH (08:55)
[2022-04-04] MEDS: SENNA 8.6 MG TAB (SENOKOT) PO SCH ×2 (08:55→20:03)
[2022-04-04] MEDS: MIRALAX *UNIT DOSE* 17GM PACKET PO SCH (08:56)
[2022-04-04] MEDS: CARVedilol 12.5 MG TAB PO SCH ×2 (08:56→20:17)
[2022-04-04] MEDS: ONDANSETRON 4MG 2ML VIAL IV PRN (08:56)
[2022-04-04] MEDS: MORPHINE 2 MG/ML 1ML VIAL IV PRN ×3 (08:57→23:26)
[2022-04-04 09:00] LABS: BASO % 0.2 % (0.0-1.0); EOS # 0.3 10^3/uL (0.0-0.5); EOS % 1.5 % (0.0-3.0); HEMATOCRIT 26.5 % (42.0-52.0); HEMOGLOBIN 8.5 g/dl (13.5-17.5); LYMPH # 0.9 10^3/uL (1.5-5.0); LYMPH % 5.1 % (24.0-44.0); MEAN CORPUSCULAR HGB CONC 32.1 g/dl (32.0-36.5); MEAN CORPUSCULAR VOLUME 90.4 fl (80.0-96.0); MONO % 9.9 % (2.0-8.0); NEUTROPHILS # 14.1 10^3/uL (1.5-8.5); NEUTROPHILS % 82.7 % (36.0-66.0); PLATELET COUNT, AUTOMATED 222 10^3/uL (150-450); RED BLOOD COUNT 2.93 10^6/uL (4.30-6.10)
[2022-04-04 09:24] VITALS: BP 139/55
[2022-04-04 09:41] LABS: BILIRUBIN,DIRECT 0.4 MG/DL (0.0-0.2); BILIRUBIN,TOTAL 0.7 MG/DL (0.2-1.0); C REACTIVE PROTEIN QUANTITATIV 20.3 MG/DL (0.00-0.30); CALCIUM LEVEL 8.3 MG/DL (8.8-10.2); CREATININE FOR GFR 2.93 MG/DL (0.70-1.30); GLOMERULAR FILTRATION RATE 22.4 (>42); MAGNESIUM LEVEL 1.6 MG/DL (1.8-2.4); MONO # 1.7 10^3/uL (0.0-0.8); POTASSIUM SERUM 4.1 MEQ/L (3.5-5.1); TOTAL PROTEIN 5.2 GM/DL (6.4-8.2)
[2022-04-04 09:59] LABS: ERYTHROCYTE SEDIMENTATION RATE 75 mm/hr (0-20)
[2022-04-04 13:38] VITALS: BP 140/60
[2022-04-04 20:00] VITALS: BP 114/48
[2022-04-04] MEDS: EZETIMIBE 10MG TABLET (ZETIA) PO SCH (20:03)
[2022-04-04] MEDS: TAMSULOSIN 0.4 MG CAP PO SCH (20:03)
[2022-04-04] MEDS: ATORVASTATIN 20 MG TAB PO SCH (20:03)
[2022-04-04] MEDS: MORPHINE 4 MG/ML 1ML VIAL IV PRN (20:04)
[2022-04-05] MEDS: AMPICILLIN SOD/SULBACTAM SOD 1.5 GM in D5W MINI-BAG PLUS 50 ML IV SCH ×3 (05:29→17:24)
[2022-04-05 06:00] VITALS: BP 93/52
[2022-04-05] MEDS ORDERED: ANEXSIA, NORCO 7.5MG/325MG TABLET(HYDROCODONE/APAP) PO ONE (07:30)
[2022-04-05] MEDS: MORPHINE 2 MG/ML 1ML VIAL IV PRN (07:36)
[2022-04-05 07:38] LABS: BASO % 0.1 % (0.0-1.0); EOS # 0.2 10^3/uL (0.0-0.5); EOS % 1.3 % (0.0-3.0); HEMATOCRIT 23.7 % (42.0-52.0); HEMOGLOBIN 7.5 g/dl (13.5-17.5); LYMPH # 0.7 10^3/uL (1.5-5.0); LYMPH % 3.7 % (24.0-44.0); MEAN CORPUSCULAR HEMOGLOBIN 28.5 pg (27.0-33.0); MEAN CORPUSCULAR HGB CONC 31.6 g/dl (32.0-36.5); MEAN CORPUSCULAR VOLUME 90.1 fl (80.0-96.0); MONO % 9.4 % (2.0-8.0); NEUTROPHILS # 16.2 10^3/uL (1.5-8.5); NEUTROPHILS % 84.9 % (36.0-66.0); PLATELET COUNT, AUTOMATED 222 10^3/uL (150-450); RED BLOOD COUNT 2.63 10^6/uL (4.30-6.10); WHITE BLOOD COUNT 19.1 10^3/uL (4.0-10.0)
[2022-04-05 08:10] LABS: CALCIUM LEVEL 7.9 MG/DL (8.8-10.2); CREATININE FOR GFR 2.9 MG/DL (0.70-1.30); GLOMERULAR FILTRATION RATE 22.6 (>42); MAGNESIUM LEVEL 1.6 MG/DL (1.8-2.4); POTASSIUM SERUM 3.8 MEQ/L (3.5-5.1)
[2022-04-05] MEDS: MIRALAX *UNIT DOSE* 17GM PACKET PO SCH ×2 (08:15→20:57)
[2022-04-05] MEDS: PANTOPRAZOLE 40MG TAB (PROTONIX) PO SCH (08:16)
[2022-04-05] MEDS: FOLIC ACID 1MG TAB PO SCH (08:16)
[2022-04-05] MEDS: LACTOBACILLUS ACIDOPHILUS CAP (BACID) PO SCH (08:16)
[2022-04-05] MEDS: ESCITALOPRAM OXALATE 5MG TABLET (LEXAPRO) PO SCH (08:16)
[2022-04-05] MEDS: TORSEMIDE 10 MG TABLET PO SCH ×3 (08:17→17:24)
[2022-04-05] MEDS: CLOPIDOGREL 75 MG TAB PO SCH (08:17)
[2022-04-05] MEDS: allopurinoL 100 MG TAB PO SCH (08:17)
[2022-04-05] MEDS: SODIUM BICARBONATE 325 MG TAB PO SCH ×2 (08:17→20:58)
[2022-04-05] MEDS: SENNA 8.6 MG TAB (SENOKOT) PO SCH ×2 (08:17→20:58)
[2022-04-05] MEDS: CARVedilol 12.5 MG TAB PO SCH ×2 (08:19→20:50)
[2022-04-05] MEDS: GABAPENTIN 300 MG CAP PO SCH ×2 (08:20→20:58)
[2022-04-05] MEDS: LEVEMIR (INSULIN DETEMIR) 1 UNITS/0.01ML SC SCH (08:21)
[2022-04-05] MEDS: INSULIN LISPRO (NovoLOG) PER UNIT SC SCH ×4 (08:22→20:50)
[2022-04-05 08:26] LABS: MONO # 1.8 10^3/uL (0.0-0.8)
[2022-04-05] MEDS ORDERED: MAG SULF 1GM/100ML (MAG RUN) 1 GM in IV 1 EA IV ONE (09:00)
[2022-04-05] MEDS: MORPHINE 4 MG/ML 1ML VIAL IV PRN (11:01)
[2022-04-05] MEDS: ANEXSIA, NORCO 7.5MG/325MG TABLET(HYDROCODONE/APAP) PO SCH ×2 (12:06→17:26)
[2022-04-05] MEDS ORDERED: ACETAMINOPHEN TAB 650MG DOSE (2X325MG) PO PRN (12:40)
[2022-04-05 14:22] VITALS: BP 84/40
[2022-04-05 15:30] VITALS: BP 83/40
[2022-04-05 16:56] VITALS: BP 102/54
[2022-04-05 19:45] VITALS: BP_SYST 97; BP_SYST 98; BP_DIAS 41; BP_DIAS 42
[2022-04-05] MEDS ORDERED: SODIUM CHLORIDE 0.9% 1000ML IV ONE (20:05)
[2022-04-05] MEDS: EZETIMIBE 10MG TABLET (ZETIA) PO SCH (20:57)
[2022-04-05] MEDS: TAMSULOSIN 0.4 MG CAP PO SCH (20:58)
[2022-04-05] MEDS: ATORVASTATIN 20 MG TAB PO SCH (20:58)
[2022-04-05 21:50] VITALS: BP 104/42
[2022-04-06] MEDS: AMPICILLIN SOD/SULBACTAM SOD 1.5 GM in D5W MINI-BAG PLUS 50 ML IV SCH ×2 (00:44→05:09)
[2022-04-06] MEDS: ANEXSIA, NORCO 7.5MG/325MG TABLET(HYDROCODONE/APAP) PO SCH ×4 (00:45→17:47)
[2022-04-06 05:01] VITALS: BP 102/40
[2022-04-06] MEDS ORDERED: LevoFLOXacin 750 MG TABLET PO SCH (06:00)
[2022-04-06] MEDS ORDERED: PIPERACILLIN/TAZOBACTAM SOD 2.25 GM in D5W MINI-BAG PLUS 50 ML IV SCH (07:10)
[2022-04-06 07:19] LABS: INR 1.55; PROTHROMBIN TIME 18.9 SECONDS (12.5-14.5)
[2022-04-06] MEDS: PIPERACILLIN/TAZOBACTAM SOD 3.375 GM in D5W MINI-BAG PLUS 50 ML IV SCH ×3 (08:04→20:10)
[2022-04-06] MEDS: MIRALAX *UNIT DOSE* 17GM PACKET PO SCH ×2 (08:04→20:11)
[2022-04-06] MEDS: SODIUM BICARBONATE 325 MG TAB PO SCH ×2 (08:05→20:10)
[2022-04-06] MEDS: CLOPIDOGREL 75 MG TAB PO SCH (08:05)
[2022-04-06] MEDS: SENNA 8.6 MG TAB (SENOKOT) PO SCH ×2 (08:06→20:11)
[2022-04-06] MEDS: GABAPENTIN 300 MG CAP PO SCH ×2 (08:06→20:10)
[2022-04-06] MEDS: FOLIC ACID 1MG TAB PO SCH (08:06)
[2022-04-06] MEDS: ESCITALOPRAM OXALATE 5MG TABLET (LEXAPRO) PO SCH (08:06)
[2022-04-06] MEDS: allopurinoL 100 MG TAB PO SCH (08:07)
[2022-04-06] MEDS: TORSEMIDE 10 MG TABLET PO SCH (08:07)
[2022-04-06] MEDS: CARVedilol 12.5 MG TAB PO SCH ×2 (08:07→20:10)
[2022-04-06] MEDS: PANTOPRAZOLE 40MG TAB (PROTONIX) PO SCH (08:07)
[2022-04-06] MEDS: LEVEMIR (INSULIN DETEMIR) 1 UNITS/0.01ML SC SCH (08:08)
[2022-04-06] MEDS: INSULIN LISPRO (NovoLOG) PER UNIT SC SCH ×4 (08:09→20:23)
[2022-04-06 08:20] LABS: BASO % 0.2 % (0.0-1.0); EOS # 0.3 10^3/uL (0.0-0.5); EOS % 1.6 % (0.0-3.0); HEMATOCRIT 23.2 % (42.0-52.0); HEMOGLOBIN 7.5 g/dl (13.5-17.5); LYMPH # 0.7 10^3/uL (1.5-5.0); LYMPH % 4.5 % (24.0-44.0); MEAN CORPUSCULAR HEMOGLOBIN 29.2 pg (27.0-33.0); MEAN CORPUSCULAR HGB CONC 32.3 g/dl (32.0-36.5); MEAN CORPUSCULAR VOLUME 90.3 fl (80.0-96.0); MONO # 1.5 10^3/uL (0.0-0.8); MONO % 9.3 % (2.0-8.0); NEUTROPHILS # 13.1 10^3/uL (1.5-8.5); NEUTROPHILS % 83.3 % (36.0-66.0); PLATELET COUNT, AUTOMATED 191 10^3/uL (150-450); RED BLOOD COUNT 2.57 10^6/uL (4.30-6.10); WHITE BLOOD COUNT 15.7 10^3/uL (4.0-10.0)
[2022-04-06] MEDS: LACTOBACILLUS ACIDOPHILUS CAP (BACID) PO SCH ×2 (08:25→17:46)
[2022-04-06 08:40] LABS: C REACTIVE PROTEIN QUANTITATIV 18.3 MG/DL (0.00-0.30); CALCIUM LEVEL 7.8 MG/DL (8.8-10.2); CREATININE FOR GFR 3.2 MG/DL (0.70-1.30); GLOMERULAR FILTRATION RATE 20.2 (>42); POTASSIUM SERUM 3.7 MEQ/L (3.5-5.1)
[2022-04-06 08:51] LABS: ERYTHROCYTE SEDIMENTATION RATE 106 mm/hr (0-20)
[2022-04-06] MEDS: MORPHINE 2 MG/ML 1ML VIAL IV PRN ×2 (10:06→21:47)
[2022-04-06 16:40] VITALS: BP 100/54
[2022-04-06 16:55] VITALS: BP 98/54
[2022-04-06 17:40] VITALS: BP 119/79
[2022-04-06] MEDS: LevoFLOXacin 750 MG TABLET PO SCH (18:18)
[2022-04-06 18:44] VITALS: BP 98/53
[2022-04-06] MEDS: ATORVASTATIN 20 MG TAB PO SCH (20:10)
[2022-04-06] MEDS: TAMSULOSIN 0.4 MG CAP PO SCH (20:10)
[2022-04-06] MEDS: EZETIMIBE 10MG TABLET (ZETIA) PO SCH (20:10)
[2022-04-06 22:00] VITALS: BP 118/54
[2022-04-07] VITALS (12 sets, daily range): BP systolic 93–132; BP diastolic 47–59
[2022-04-07] MEDS: ANEXSIA, NORCO 7.5MG/325MG TABLET(HYDROCODONE/APAP) PO SCH ×4 (02:43→18:28)
[2022-04-07] MEDS: PIPERACILLIN/TAZOBACTAM SOD 3.375 GM in D5W MINI-BAG PLUS 50 ML IV SCH ×2 (02:56→08:13)
[2022-04-07 06:21] LABS: BASO % 0.2 % (0.0-1.0); EOS # 0.2 10^3/uL (0.0-0.5); EOS % 1.4 % (0.0-3.0); HEMATOCRIT 25.3 % (42.0-52.0); HEMOGLOBIN 7.8 g/dl (13.5-17.5); LYMPH # 0.9 10^3/uL (1.5-5.0); LYMPH % 6.2 % (24.0-44.0); MEAN CORPUSCULAR HEMOGLOBIN 28.7 pg (27.0-33.0); MEAN CORPUSCULAR HGB CONC 30.8 g/dl (32.0-36.5); MONO # 1.5 10^3/uL (0.0-0.8); MONO % 10.2 % (2.0-8.0); NEUTROPHILS # 11.9 10^3/uL (1.5-8.5); NEUTROPHILS % 81.4 % (36.0-66.0); PLATELET COUNT, AUTOMATED 181 10^3/uL (150-450); RED BLOOD COUNT 2.72 10^6/uL (4.30-6.10); WHITE BLOOD COUNT 14.6 10^3/uL (4.0-10.0)
[2022-04-07 06:52] LABS: CALCIUM LEVEL 7.7 MG/DL (8.8-10.2); CREATININE FOR GFR 3.78 MG/DL (0.70-1.30); GLOMERULAR FILTRATION RATE 16.7 (>42)
[2022-04-07] MEDS ORDERED: HYDROMORPHONE HCL 0.5 MG/ 0.5 ML SYRINGE (J1170 PER 1) IV ONE (08:00)
[2022-04-07] MEDS: ESCITALOPRAM OXALATE 5MG TABLET (LEXAPRO) PO SCH (08:11)
[2022-04-07] MEDS: FOLIC ACID 1MG TAB PO SCH (08:11)
[2022-04-07] MEDS: LEVEMIR (INSULIN DETEMIR) 1 UNITS/0.01ML SC SCH (08:11)
[2022-04-07] MEDS: SODIUM BICARBONATE 325 MG TAB PO SCH ×2 (08:11→20:21)
[2022-04-07] MEDS: INSULIN LISPRO (NovoLOG) PER UNIT SC SCH ×4 (08:11→21:00)
[2022-04-07] MEDS: GABAPENTIN 300 MG CAP PO SCH ×2 (08:12→20:21)
[2022-04-07] MEDS: PANTOPRAZOLE 40MG TAB (PROTONIX) PO SCH (08:12)
[2022-04-07] MEDS: allopurinoL 100 MG TAB PO SCH (08:12)
[2022-04-07] MEDS: CLOPIDOGREL 75 MG TAB PO SCH (08:12)
[2022-04-07] MEDS: LACTOBACILLUS ACIDOPHILUS CAP (BACID) PO SCH ×2 (08:12→18:27)
[2022-04-07] MEDS: CARVedilol 12.5 MG TAB PO SCH (08:35)
[2022-04-07] MEDS: MIRALAX *UNIT DOSE* 17GM PACKET PO SCH ×2 (08:35→20:20)
[2022-04-07] MEDS: SENNA 8.6 MG TAB (SENOKOT) PO SCH ×2 (08:36→20:21)
[2022-04-07] MEDS ORDERED: MIDODRINE 5 MG TAB PO ONE (10:00)
[2022-04-07] MEDS: PIPERACILLIN/TAZOBACTAM SOD 2.25 GM in D5W MINI-BAG PLUS 50 ML IV SCH (18:28)
[2022-04-07] MEDS: ATORVASTATIN 20 MG TAB PO SCH (20:21)
[2022-04-07] MEDS: EZETIMIBE 10MG TABLET (ZETIA) PO SCH (20:21)
[2022-04-07] MEDS: TAMSULOSIN 0.4 MG CAP PO SCH (20:21)
[2022-04-07] MEDS: RAMELTEON 8 MG TAB (ROZEREM) PO PRN (20:21)
[2022-04-08] MEDS: PIPERACILLIN/TAZOBACTAM SOD 2.25 GM in D5W MINI-BAG PLUS 50 ML IV SCH ×4 (00:09→21:10)
[2022-04-08] MEDS: ANEXSIA, NORCO 7.5MG/325MG TABLET(HYDROCODONE/APAP) PO SCH ×4 (00:10→17:54)
[2022-04-08 05:21] VITALS: BP 99/55
[2022-04-08 06:09] LABS: BASO % 0.1 % (0.0-1.0); EOS # 0.3 10^3/uL (0.0-0.5); HEMATOCRIT 27.6 % (42.0-52.0); LYMPH # 0.9 10^3/uL (1.5-5.0); LYMPH % 6.3 % (24.0-44.0); MEAN CORPUSCULAR HEMOGLOBIN 29.5 pg (27.0-33.0); MEAN CORPUSCULAR HGB CONC 32.6 g/dl (32.0-36.5); MEAN CORPUSCULAR VOLUME 90.5 fl (80.0-96.0); MONO # 1.3 10^3/uL (0.0-0.8); MONO % 9.3 % (2.0-8.0); NEUTROPHILS # 11.6 10^3/uL (1.5-8.5); NEUTROPHILS % 81.9 % (36.0-66.0); PLATELET COUNT, AUTOMATED 184 10^3/uL (150-450); RED BLOOD COUNT 3.05 10^6/uL (4.30-6.10); WHITE BLOOD COUNT 14.2 10^3/uL (4.0-10.0)
[2022-04-08 06:52] LABS: CALCIUM LEVEL 7.9 MG/DL (8.8-10.2); CREATININE FOR GFR 4.25 MG/DL (0.70-1.30); GLOMERULAR FILTRATION RATE 14.6 (>42)
[2022-04-08] MEDS: FOLIC ACID 1MG TAB PO SCH (08:17)
[2022-04-08] MEDS: ESCITALOPRAM OXALATE 5MG TABLET (LEXAPRO) PO SCH (08:18)
[2022-04-08] MEDS: MIDODRINE 5 MG TAB PO SCH ×3 (08:18→16:39)
[2022-04-08] MEDS: GABAPENTIN 300 MG CAP PO SCH ×2 (08:19→21:09)
[2022-04-08] MEDS: allopurinoL 100 MG TAB PO SCH (08:19)
[2022-04-08] MEDS: LACTOBACILLUS ACIDOPHILUS CAP (BACID) PO SCH ×2 (08:19→17:53)
[2022-04-08] MEDS: SENNA 8.6 MG TAB (SENOKOT) PO SCH ×2 (08:19→21:09)
[2022-04-08] MEDS: PANTOPRAZOLE 40MG TAB (PROTONIX) PO SCH (08:19)
[2022-04-08] MEDS: MIRALAX *UNIT DOSE* 17GM PACKET PO SCH ×2 (08:20→21:09)
[2022-04-08] MEDS: CLOPIDOGREL 75 MG TAB PO SCH (08:20)
[2022-04-08] MEDS: LEVEMIR (INSULIN DETEMIR) 1 UNITS/0.01ML SC SCH (08:20)
[2022-04-08] MEDS: SODIUM BICARBONATE 325 MG TAB PO SCH ×2 (08:20→21:09)
[2022-04-08] MEDS: INSULIN LISPRO (NovoLOG) PER UNIT SC SCH ×4 (08:21→20:48)
[2022-04-08 14:00] VITALS: BP 120/55
[2022-04-08] MEDS: LevoFLOXacin 750 MG TABLET PO SCH (17:53)
[2022-04-08 19:47] VITALS: BP 106/50
[2022-04-08] MEDS: carisoprodoL 350 MG TAB PO PRN (21:09)
[2022-04-08] MEDS: EZETIMIBE 10MG TABLET (ZETIA) PO SCH (21:09)
[2022-04-08] MEDS: ATORVASTATIN 20 MG TAB PO SCH (21:09)
[2022-04-08] MEDS: TAMSULOSIN 0.4 MG CAP PO SCH (21:09)
[2022-04-08] MEDS: RAMELTEON 8 MG TAB (ROZEREM) PO PRN (21:09)
[2022-04-09] MEDS: PIPERACILLIN/TAZOBACTAM SOD 2.25 GM in D5W MINI-BAG PLUS 50 ML IV SCH ×3 (04:50→20:23)
[2022-04-09] MEDS: ANEXSIA, NORCO 7.5MG/325MG TABLET(HYDROCODONE/APAP) PO SCH ×4 (04:50→17:39)
[2022-04-09 05:30] VITALS: BP 93/47
[2022-04-09 06:59] LABS: BASO % 0.2 % (0.0-1.0); EOS # 0.3 10^3/uL (0.0-0.5); EOS % 1.9 % (0.0-3.0); HEMATOCRIT 26.6 % (42.0-52.0); HEMOGLOBIN 8.7 g/dl (13.5-17.5); LYMPH # 0.8 10^3/uL (1.5-5.0); LYMPH % 5.4 % (24.0-44.0); MEAN CORPUSCULAR HEMOGLOBIN 29.6 pg (27.0-33.0); MEAN CORPUSCULAR HGB CONC 32.7 g/dl (32.0-36.5); MEAN CORPUSCULAR VOLUME 90.5 fl (80.0-96.0); MONO # 1.1 10^3/uL (0.0-0.8); MONO % 7.4 % (2.0-8.0); NEUTROPHILS # 12.6 10^3/uL (1.5-8.5); NEUTROPHILS % 84.4 % (36.0-66.0); PLATELET COUNT, AUTOMATED 189 10^3/uL (150-450); RED BLOOD COUNT 2.94 10^6/uL (4.30-6.10)
[2022-04-09 07:29] LABS: CREATININE FOR GFR 4.7 MG/DL (0.70-1.30); POTASSIUM SERUM 4.1 MEQ/L (3.5-5.1)
[2022-04-09] MEDS: INSULIN LISPRO (NovoLOG) PER UNIT SC SCH ×4 (07:30→20:28)
[2022-04-09] MEDS ORDERED: NS 500 ML IV ONE (07:50)
[2022-04-09] MEDS: LACTOBACILLUS ACIDOPHILUS CAP (BACID) PO SCH ×2 (08:00→17:38)
[2022-04-09] MEDS ORDERED: MIDODRINE 5 MG TAB PO SCH (08:00)
[2022-04-09] MEDS: SODIUM BICARBONATE 325 MG TAB PO SCH (08:14)
[2022-04-09] MEDS: allopurinoL 100 MG TAB PO SCH (08:14)
[2022-04-09] MEDS: SENNA 8.6 MG TAB (SENOKOT) PO SCH ×2 (08:14→20:24)
[2022-04-09] MEDS: ESCITALOPRAM OXALATE 5MG TABLET (LEXAPRO) PO SCH (08:14)
[2022-04-09] MEDS: FOLIC ACID 1MG TAB PO SCH (08:14)
[2022-04-09] MEDS: PANTOPRAZOLE 40MG TAB (PROTONIX) PO SCH (08:14)
[2022-04-09] MEDS: GABAPENTIN 300 MG CAP PO SCH ×2 (08:14→20:23)
[2022-04-09] MEDS: MIRALAX *UNIT DOSE* 17GM PACKET PO SCH ×2 (08:14→20:23)
[2022-04-09] MEDS: LEVEMIR (INSULIN DETEMIR) 1 UNITS/0.01ML SC SCH (08:14)
[2022-04-09 08:40] VITALS: BP 117/55
[2022-04-09] MEDS ORDERED: fentaNYL 100 MCG/2 ML INJECTION As Ordered ONE (09:25)
[2022-04-09] MEDS ORDERED: MIDAZOLAM INJ 2MG/2ML VIAL (J2250 PER 1MG) As Ordered ONE (09:25)
[2022-04-09] MEDS ORDERED: LIDOCAINE 1% MDV 20ML VIAL As Ordered ONE ×2 (09:25→10:17)
[2022-04-09] MEDS ORDERED: MORPHINE 2 MG/ML 1ML VIAL IV PRN (09:30)
[2022-04-09] MEDS ORDERED: SODIUM CHLORIDE 0.9% 1000ML IV PRN (09:40)
[2022-04-09 10:17] LABS: CK-MB VALUE MASS < 1.0 NG/ML (<3.6); CPK CREATINE PHOSPHOKINASE 29 U/L (39-308); MB/CK RELATIVE INDEX 3.45 (< OR =4)
[2022-04-09] MEDS: MIDODRINE 2.5 MG TAB PO SCH ×2 (12:00→15:48)
[2022-04-09 12:39] LABS: HEPATITIS B CORE ANTIBODY IGM NEGATIVE (NEGATIVE); HEPATITIS B SURFACE ANTIBODY NEGATIVE (POSITIVE); HEPATITIS B SURFACE ANTIGEN NEGATIVE (NEGATIVE); HEPATITIS C VIRUS ABY INDEX < 0.0 INDEX (<0.8)
[2022-04-09] MEDS: MORPHINE 4 MG/ML 1ML VIAL IV PRN (15:47)
[2022-04-09 16:00] VITALS: BP 102/60
[2022-04-09 19:52] VITALS: BP 123/60
[2022-04-09] MEDS: EZETIMIBE 10MG TABLET (ZETIA) PO SCH (20:23)
[2022-04-09] MEDS: ATORVASTATIN 20 MG TAB PO SCH (20:23)
[2022-04-10 00:09] VITALS: BP 124/86
[2022-04-10] MEDS: ANEXSIA, NORCO 7.5MG/325MG TABLET(HYDROCODONE/APAP) PO SCH ×3 (00:19→11:11)
[2022-04-10] MEDS: PIPERACILLIN/TAZOBACTAM SOD 2.25 GM in D5W MINI-BAG PLUS 50 ML IV SCH ×2 (03:49→11:13)
[2022-04-10] MEDS: MORPHINE 4 MG/ML 1ML VIAL IV PRN ×3 (05:01→17:21)
[2022-04-10 05:56] LABS: BASO % 0.2 % (0.0-1.0); EOS # 0.2 10^3/uL (0.0-0.5); EOS % 1.9 % (0.0-3.0); HEMOGLOBIN 8.3 g/dl (13.5-17.5); LYMPH # 0.7 10^3/uL (1.5-5.0); LYMPH % 5.8 % (24.0-44.0); MEAN CORPUSCULAR HEMOGLOBIN 29.2 pg (27.0-33.0); MEAN CORPUSCULAR HGB CONC 31.9 g/dl (32.0-36.5); MEAN CORPUSCULAR VOLUME 91.5 fl (80.0-96.0); MONO # 0.9 10^3/uL (0.0-0.8); MONO % 7.6 % (2.0-8.0); NEUTROPHILS # 10.2 10^3/uL (1.5-8.5); NEUTROPHILS % 84.1 % (36.0-66.0); PLATELET COUNT, AUTOMATED 202 10^3/uL (150-450); RED BLOOD COUNT 2.84 10^6/uL (4.30-6.10); WHITE BLOOD COUNT 12.1 10^3/uL (4.0-10.0)
[2022-04-10 06:37] LABS: ALBUMIN 1.6 GM/DL (3.2-5.2); CALCIUM LEVEL 7.6 MG/DL (8.8-10.2); CREATININE FOR GFR 3.59 MG/DL (0.70-1.30); GLOMERULAR FILTRATION RATE 17.7 (>42); POTASSIUM SERUM 3.9 MEQ/L (3.5-5.1); TOTAL PROTEIN 4.8 GM/DL (6.4-8.2)
[2022-04-10 07:59] VITALS: BP 85/49
[2022-04-10 08:15] VITALS: BP 106/53
[2022-04-10] MEDS: LACTOBACILLUS ACIDOPHILUS CAP (BACID) PO SCH ×2 (08:21→17:20)
[2022-04-10] MEDS: INSULIN LISPRO (NovoLOG) PER UNIT SC SCH ×4 (08:21→21:00)
[2022-04-10] MEDS: MIDODRINE 2.5 MG TAB PO SCH ×3 (08:21→17:19)
[2022-04-10] MEDS: allopurinoL 100 MG TAB PO SCH (08:22)
[2022-04-10] MEDS: FOLIC ACID 1MG TAB PO SCH (08:22)
[2022-04-10] MEDS: ESCITALOPRAM OXALATE 5MG TABLET (LEXAPRO) PO SCH (08:22)
[2022-04-10] MEDS: SENNA 8.6 MG TAB (SENOKOT) PO SCH ×3 (08:22→21:13)
[2022-04-10] MEDS: GABAPENTIN 300 MG CAP PO SCH ×2 (08:22→21:13)
[2022-04-10] MEDS: PANTOPRAZOLE 40MG TAB (PROTONIX) PO SCH (08:22)
[2022-04-10] MEDS: MIRALAX *UNIT DOSE* 17GM PACKET PO SCH ×3 (08:22→21:13)
[2022-04-10] MEDS: LEVEMIR (INSULIN DETEMIR) 1 UNITS/0.01ML SC SCH (08:23)
[2022-04-10] MEDS ORDERED: SODIUM CHLORIDE 0.9% 1000ML IV PRN (10:00)
[2022-04-10 11:37] VITALS: BP 108/42
[2022-04-10] MEDS: CLOPIDOGREL 75 MG TAB PO SCH (12:09)
[2022-04-10 17:00] VITALS: BP 103/73
[2022-04-10] MEDS: ACETAMINOPHEN TAB 650MG DOSE (2X325MG) PO PRN (19:08)
[2022-04-10] MEDS ORDERED: MORPHINE 2 MG/ML 1ML VIAL IV PRN (19:10)
[2022-04-10 20:00] VITALS: BP 103/49
[2022-04-10] MEDS ORDERED: MORPHINE 2 MG/ML 1ML VIAL IV ONE (20:55)
[2022-04-10] MEDS: ATORVASTATIN 20 MG TAB PO SCH (21:12)
[2022-04-10] MEDS: EZETIMIBE 10MG TABLET (ZETIA) PO SCH (21:13)
[2022-04-10] MEDS: VANCOMYCIN HCL 750 MG, VIAL MATE ADAPTER 1 EACH in D5W 250 ML IV SCH ×2 (21:26→22:56)
[2022-04-11] VITALS (10 sets, daily range): BP systolic 119–149; BP diastolic 55–67
[2022-04-11 05:39] LABS: BASO % 0.2 % (0.0-1.0); EOS # 0.2 10^3/uL (0.0-0.5); EOS % 1.9 % (0.0-3.0); HEMATOCRIT 26.7 % (42.0-52.0); HEMOGLOBIN 8.6 g/dl (13.5-17.5); LYMPH # 0.6 10^3/uL (1.5-5.0); MEAN CORPUSCULAR HEMOGLOBIN 29.6 pg (27.0-33.0); MEAN CORPUSCULAR HGB CONC 32.2 g/dl (32.0-36.5); MEAN CORPUSCULAR VOLUME 91.8 fl (80.0-96.0); MONO # 1.2 10^3/uL (0.0-0.8); MONO % 9.6 % (2.0-8.0); NEUTROPHILS # 10.4 10^3/uL (1.5-8.5); NEUTROPHILS % 82.7 % (36.0-66.0); PLATELET COUNT, AUTOMATED 209 10^3/uL (150-450); RED BLOOD COUNT 2.91 10^6/uL (4.30-6.10); WHITE BLOOD COUNT 12.6 10^3/uL (4.0-10.0)
[2022-04-11 06:18] LABS: ALBUMIN 1.6 GM/DL (3.2-5.2); BILIRUBIN,TOTAL 1.1 MG/DL (0.2-1.0); CALCIUM LEVEL 7.6 MG/DL (8.8-10.2); CREATININE FOR GFR 2.7 MG/DL (0.70-1.30); GLOMERULAR FILTRATION RATE 24.6 (>42); POTASSIUM SERUM 3.7 MEQ/L (3.5-5.1); TOTAL PROTEIN 4.9 GM/DL (6.4-8.2)
[2022-04-11] MEDS: INSULIN LISPRO (NovoLOG) PER UNIT SC SCH ×4 (07:30→20:55)
[2022-04-11] MEDS: MIDODRINE 2.5 MG TAB PO SCH ×3 (08:00→16:00)
[2022-04-11] MEDS: LACTOBACILLUS ACIDOPHILUS CAP (BACID) PO SCH ×2 (08:00→17:31)
[2022-04-11] MEDS: MIRALAX *UNIT DOSE* 17GM PACKET PO SCH ×2 (08:07→20:54)
[2022-04-11] MEDS: LEVEMIR (INSULIN DETEMIR) 1 UNITS/0.01ML SC SCH (08:08)
[2022-04-11] MEDS: FOLIC ACID 1MG TAB PO SCH (09:00)
[2022-04-11] MEDS ORDERED: propofoL 200 MG/20 ML VIAL As Ordered ONE (09:27)
[2022-04-11] MEDS ORDERED: fentaNYL 100 MCG/2 ML INJECTION As Ordered ONE ×2 (09:27→12:34)
[2022-04-11] MEDS ORDERED: MIDAZOLAM INJ 2MG/2ML VIAL (J2250 PER 1MG) As Ordered ONE ×2 (09:27→12:54)
[2022-04-11] MEDS ORDERED: LIDOCAINE 2% 100MG/5ML SDV (FOR ANES.) As Ordered ONE (09:27)
[2022-04-11] MEDS: GABAPENTIN 300 MG CAP PO SCH ×2 (09:55→20:54)
[2022-04-11] MEDS: MORPHINE 4 MG/ML 1ML VIAL IV PRN ×3 (09:55→21:39)
[2022-04-11] MEDS: PANTOPRAZOLE 40MG TAB (PROTONIX) PO SCH (09:56)
[2022-04-11] MEDS: SENNA 8.6 MG TAB (SENOKOT) PO SCH ×2 (09:56→20:54)
[2022-04-11] MEDS: CLOPIDOGREL 75 MG TAB PO SCH (09:58)
[2022-04-11] MEDS: ESCITALOPRAM OXALATE 5MG TABLET (LEXAPRO) PO SCH (09:58)
[2022-04-11] MEDS: allopurinoL 100 MG TAB PO SCH (10:10)
[2022-04-11] MEDS ORDERED: ETOMIDATE INJ 20MG/10ML VIAL As Ordered ONE (10:40)
[2022-04-11] MEDS ORDERED: ROCURONIUM BROMIDE 50 MG/5 ML VIAL As Ordered ONE (10:40)
[2022-04-11] MEDS ORDERED: PHENYLEPHRINE 10MG/ML 1ML VIAL As Ordered ONE (10:42)
[2022-04-11] MEDS ORDERED: ZOSYN 4.5GM VIAL (J2543) As Ordered ONE (12:06)
[2022-04-11] MEDS ORDERED: METOCLOPRAMIDE INJ 10MG/2ML VIAL (J2765 PER 1) As Ordered ONE (12:13)
[2022-04-11] MEDS ORDERED: ONDANSETRON 4MG 2ML VIAL As Ordered ONE (12:13)
[2022-04-11] MEDS ORDERED: SUGAMMADEX SODIUM 500 MG/5 ML VIAL (BRIDION) As Ordered ONE (12:20)
[2022-04-11] MEDS ORDERED: ePHEDrine SULFATE 25 MG/5 ML(5MG/ML) SYRINGE As Ordered ONE (13:17)
[2022-04-11] MEDS ORDERED: ONDANSETRON 4MG 2ML VIAL IV PRN (14:25)
[2022-04-11] MEDS: fentaNYL 100 MCG/2 ML INJECTION IV PRN ×4 (15:16→15:36)
[2022-04-11] MEDS: oxyCODONE 5MG TAB PO PRN ×2 (15:33→16:02)
[2022-04-11 15:50] LABS: HEMATOCRIT 28.4 % (42.0-52.0); HEMOGLOBIN 9.2 g/dl (13.5-17.5); MEAN CORPUSCULAR HEMOGLOBIN 29.3 pg (27.0-33.0); MEAN CORPUSCULAR HGB CONC 32.4 g/dl (32.0-36.5); MEAN CORPUSCULAR VOLUME 90.4 fl (80.0-96.0); PLATELET COUNT, AUTOMATED 221 10^3/uL (150-450); RED BLOOD COUNT 3.14 10^6/uL (4.30-6.10); WHITE BLOOD COUNT 14.6 10^3/uL (4.0-10.0)
[2022-04-11] MEDS: HYDROMORPHONE HCL 0.5 MG/ 0.5 ML SYRINGE (J1170 PER 1) IV PRN ×3 (15:56→16:13)
[2022-04-11 16:10] LABS: CALCIUM LEVEL 7.7 MG/DL (8.8-10.2); CREATININE FOR GFR 2.92 MG/DL (0.70-1.30); GLOMERULAR FILTRATION RATE 22.5 (>42)
[2022-04-11] MEDS ORDERED: MORPHINE 2 MG/ML 1ML VIAL IV PRN (19:00)
[2022-04-11] MEDS: EZETIMIBE 10MG TABLET (ZETIA) PO SCH (20:53)
[2022-04-11] MEDS: ATORVASTATIN 20 MG TAB PO SCH (20:54)
[2022-04-11] MEDS ORDERED: oxyCODONE 5MG TAB PO PRN (21:20)
[2022-04-11] MEDS: RAMELTEON 8 MG TAB (ROZEREM) PO PRN (22:51)
[2022-04-12] VITALS (16 sets, daily range): BP systolic 108–133; BP diastolic 53–69; O2SAT 91–95
[2022-04-12] MEDS: MORPHINE 4 MG/ML 1ML VIAL IV PRN ×2 (01:42→05:59)
[2022-04-12] MEDS: CLOPIDOGREL 75 MG TAB PO SCH (05:20)
[2022-04-12] MEDS ORDERED: SODIUM CHLORIDE 0.9% 1000ML IV PRN (06:00)
[2022-04-12 06:13] LABS: BASO % 0.1 % (0.0-1.0); EOS # 0.1 10^3/uL (0.0-0.5); EOS % 0.9 % (0.0-3.0); HEMATOCRIT 24.5 % (42.0-52.0); LYMPH # 0.7 10^3/uL (1.5-5.0); LYMPH % 5.3 % (24.0-44.0); MEAN CORPUSCULAR HEMOGLOBIN 29.9 pg (27.0-33.0); MEAN CORPUSCULAR HGB CONC 32.7 g/dl (32.0-36.5); MEAN CORPUSCULAR VOLUME 91.4 fl (80.0-96.0); MONO # 1.4 10^3/uL (0.0-0.8); MONO % 9.9 % (2.0-8.0); NEUTROPHILS # 11.6 10^3/uL (1.5-8.5); NEUTROPHILS % 83.2 % (36.0-66.0); PLATELET COUNT, AUTOMATED 219 10^3/uL (150-450); RED BLOOD COUNT 2.68 10^6/uL (4.30-6.10); WHITE BLOOD COUNT 13.9 10^3/uL (4.0-10.0)
[2022-04-12] MEDS: ESCITALOPRAM OXALATE 5MG TABLET (LEXAPRO) PO SCH (06:14)
[2022-04-12] MEDS: FOLIC ACID 1MG TAB PO SCH (06:14)
[2022-04-12] MEDS: PANTOPRAZOLE 40MG TAB (PROTONIX) PO SCH (06:14)
[2022-04-12] MEDS: LACTOBACILLUS ACIDOPHILUS CAP (BACID) PO SCH ×2 (06:14→18:11)
[2022-04-12] MEDS: MIDODRINE 2.5 MG TAB PO SCH ×3 (06:14→16:10)
[2022-04-12] MEDS: allopurinoL 100 MG TAB PO SCH (06:14)
[2022-04-12] MEDS: GABAPENTIN 300 MG CAP PO SCH ×2 (06:14→20:34)
[2022-04-12] MEDS: MIRALAX *UNIT DOSE* 17GM PACKET PO SCH ×2 (06:15→20:38)
[2022-04-12] MEDS: SENNA 8.6 MG TAB (SENOKOT) PO SCH ×2 (06:15→20:38)
[2022-04-12] MEDS: LEVEMIR (INSULIN DETEMIR) 1 UNITS/0.01ML SC SCH (06:32)
[2022-04-12 06:52] LABS: ALBUMIN 1.5 GM/DL (3.2-5.2); CALCIUM LEVEL 7.7 MG/DL (8.8-10.2); CREATININE FOR GFR 3.21 MG/DL (0.70-1.30); GLOMERULAR FILTRATION RATE 20.1 (>42); POTASSIUM SERUM 4.1 MEQ/L (3.5-5.1); TOTAL PROTEIN 4.5 GM/DL (6.4-8.2)
[2022-04-12] MEDS: INSULIN LISPRO (NovoLOG) PER UNIT SC SCH ×4 (07:23→20:47)
[2022-04-12] MEDS: HYDROMORPHONE HCL 0.5 MG/ 0.5 ML SYRINGE (J1170 PER 1) IV PRN ×4 (09:55→20:35)
[2022-04-12] MEDS: ACETAMINOPHEN TAB 650MG DOSE (2X325MG) PO PRN (12:26)
[2022-04-12] MEDS ORDERED: CLOPIDOGREL 75 MG TAB PO ONE (14:00)
[2022-04-12 15:48] LABS: HEMATOCRIT 24.5 % (42.0-52.0); HEMOGLOBIN 8.3 g/dl (13.5-17.5); MEAN CORPUSCULAR HEMOGLOBIN 30.4 pg (27.0-33.0); MEAN CORPUSCULAR HGB CONC 33.9 g/dl (32.0-36.5); MEAN CORPUSCULAR VOLUME 89.7 fl (80.0-96.0); PLATELET COUNT, AUTOMATED 192 10^3/uL (150-450); RED BLOOD COUNT 2.73 10^6/uL (4.30-6.10); WHITE BLOOD COUNT 13.6 10^3/uL (4.0-10.0)
[2022-04-12] MEDS: EZETIMIBE 10MG TABLET (ZETIA) PO SCH (20:34)
[2022-04-12] MEDS: RAMELTEON 8 MG TAB (ROZEREM) PO PRN (20:34)
[2022-04-12] MEDS: ATORVASTATIN 20 MG TAB PO SCH (20:34)
[2022-04-13 04:00] VITALS: BP 114/58
[2022-04-13] MEDS: CLOPIDOGREL 75 MG TAB PO SCH (05:36)
[2022-04-13] MEDS: LACTOBACILLUS ACIDOPHILUS CAP (BACID) PO SCH ×2 (05:36→17:25)
[2022-04-13] MEDS: GABAPENTIN 300 MG CAP PO SCH ×2 (05:37→20:15)
[2022-04-13] MEDS: FOLIC ACID 1MG TAB PO SCH (05:37)
[2022-04-13] MEDS: ESCITALOPRAM OXALATE 5MG TABLET (LEXAPRO) PO SCH (05:37)
[2022-04-13] MEDS: ACETAMINOPHEN TAB 650MG DOSE (2X325MG) PO PRN ×2 (05:37→14:54)
[2022-04-13] MEDS: SENNA 8.6 MG TAB (SENOKOT) PO SCH ×2 (05:38→20:14)
[2022-04-13] MEDS: MIRALAX *UNIT DOSE* 17GM PACKET PO SCH ×2 (05:38→20:15)
[2022-04-13] MEDS: PANTOPRAZOLE 40MG TAB (PROTONIX) PO SCH (05:43)
[2022-04-13] MEDS: allopurinoL 100 MG TAB PO SCH (05:43)
[2022-04-13 05:50] LABS: HEMOGLOBIN 8.3 g/dl (13.5-17.5); MEAN CORPUSCULAR HEMOGLOBIN 30.3 pg (27.0-33.0); MEAN CORPUSCULAR HGB CONC 33.2 g/dl (32.0-36.5); MEAN CORPUSCULAR VOLUME 91.2 fl (80.0-96.0); PLATELET COUNT, AUTOMATED 203 10^3/uL (150-450); RED BLOOD COUNT 2.74 10^6/uL (4.30-6.10); WHITE BLOOD COUNT 12.8 10^3/uL (4.0-10.0)
[2022-04-13] MEDS ORDERED: SODIUM CHLORIDE 0.9% 1000ML IV PRN (06:00)
[2022-04-13] MEDS: HYDROMORPHONE HCL 0.5 MG/ 0.5 ML SYRINGE (J1170 PER 1) IV PRN ×5 (06:36→20:15)
[2022-04-13 06:39] LABS: ALBUMIN 1.5 GM/DL (3.2-5.2); BILIRUBIN,TOTAL 0.9 MG/DL (0.2-1.0); CALCIUM LEVEL 8.1 MG/DL (8.8-10.2); CREATININE FOR GFR 3.59 MG/DL (0.70-1.30); GLOMERULAR FILTRATION RATE 17.7 (>42); POTASSIUM SERUM 4.1 MEQ/L (3.5-5.1)
[2022-04-13] MEDS: MIDODRINE 2.5 MG TAB PO SCH ×3 (07:45→17:25)
[2022-04-13] MEDS: INSULIN LISPRO (NovoLOG) PER UNIT SC SCH ×4 (07:46→21:00)
[2022-04-13] MEDS: LEVEMIR (INSULIN DETEMIR) 1 UNITS/0.01ML SC SCH (07:46)
[2022-04-13 08:00] VITALS: BP 115/57
[2022-04-13] MEDS ORDERED: CLOPIDOGREL 75 MG TAB PO SCH (09:00)
[2022-04-13 12:48] VITALS: BP 118/58
[2022-04-13 16:13] VITALS: BP 94/48
[2022-04-13 20:00] VITALS: BP 101/55; O2SAT 93
[2022-04-13] MEDS: EZETIMIBE 10MG TABLET (ZETIA) PO SCH (20:15)
[2022-04-13] MEDS: DOCUSATE SODIUM 100MG CAPSULE PO SCH (20:15)
[2022-04-13] MEDS: ATORVASTATIN 20 MG TAB PO SCH (20:15)
[2022-04-13 23:52] VITALS: O2SAT 92
[2022-04-14] VITALS (12 sets, daily range): BP systolic 101–132; BP diastolic 51–60; O2SAT 90–96
[2022-04-14] MEDS: HYDROMORPHONE HCL 0.5 MG/ 0.5 ML SYRINGE (J1170 PER 1) IV PRN ×3 (04:59→21:16)
[2022-04-14 05:32] LABS: HEMATOCRIT 25.7 % (42.0-52.0); HEMOGLOBIN 8.2 g/dl (13.5-17.5); MEAN CORPUSCULAR HEMOGLOBIN 29.6 pg (27.0-33.0); MEAN CORPUSCULAR HGB CONC 31.9 g/dl (32.0-36.5); MEAN CORPUSCULAR VOLUME 92.8 fl (80.0-96.0); PLATELET COUNT, AUTOMATED 222 10^3/uL (150-450); RED BLOOD COUNT 2.77 10^6/uL (4.30-6.10); WHITE BLOOD COUNT 12.2 10^3/uL (4.0-10.0)
[2022-04-14 06:20] LABS: ALBUMIN 1.4 GM/DL (3.2-5.2); BILIRUBIN,TOTAL 0.7 MG/DL (0.2-1.0); CALCIUM LEVEL 7.9 MG/DL (8.8-10.2); CREATININE FOR GFR 2.64 MG/DL (0.70-1.30); GLOMERULAR FILTRATION RATE 25.2 (>42); POTASSIUM SERUM 3.5 MEQ/L (3.5-5.1); TOTAL PROTEIN 5.2 GM/DL (6.4-8.2)
[2022-04-14] MEDS: LEVEMIR (INSULIN DETEMIR) 1 UNITS/0.01ML SC SCH (08:14)
[2022-04-14] MEDS: GABAPENTIN 300 MG CAP PO SCH ×2 (08:22→21:15)
[2022-04-14] MEDS: LACTOBACILLUS ACIDOPHILUS CAP (BACID) PO SCH ×2 (08:22→17:31)
[2022-04-14] MEDS: ESCITALOPRAM OXALATE 5MG TABLET (LEXAPRO) PO SCH (08:22)
[2022-04-14] MEDS: MIRALAX *UNIT DOSE* 17GM PACKET PO SCH ×2 (08:22→21:14)
[2022-04-14] MEDS: DOCUSATE SODIUM 100MG CAPSULE PO SCH ×2 (08:22→21:15)
[2022-04-14] MEDS: FOLIC ACID 1MG TAB PO SCH (08:22)
[2022-04-14] MEDS: INSULIN LISPRO (NovoLOG) PER UNIT SC SCH ×4 (08:22→21:00)
[2022-04-14] MEDS: PANTOPRAZOLE 40MG TAB (PROTONIX) PO SCH (08:23)
[2022-04-14] MEDS: allopurinoL 100 MG TAB PO SCH (08:23)
[2022-04-14] MEDS: SENNA 8.6 MG TAB (SENOKOT) PO SCH ×2 (08:23→21:15)
[2022-04-14] MEDS: CLOPIDOGREL 75 MG TAB PO SCH (08:23)
[2022-04-14] MEDS: EZETIMIBE 10MG TABLET (ZETIA) PO SCH (21:15)
[2022-04-14] MEDS: ATORVASTATIN 20 MG TAB PO SCH (21:15)
[2022-04-15] VITALS (22 sets, daily range): BP systolic 109–131; BP diastolic 51–60; O2SAT 92–99
[2022-04-15 05:57] LABS: HEMATOCRIT 24.3 % (42.0-52.0); HEMOGLOBIN 7.8 g/dl (13.5-17.5); MEAN CORPUSCULAR HEMOGLOBIN 29.8 pg (27.0-33.0); MEAN CORPUSCULAR HGB CONC 32.1 g/dl (32.0-36.5); MEAN CORPUSCULAR VOLUME 92.7 fl (80.0-96.0); PLATELET COUNT, AUTOMATED 218 10^3/uL (150-450); RED BLOOD COUNT 2.62 10^6/uL (4.30-6.10); WHITE BLOOD COUNT 10.5 10^3/uL (4.0-10.0)
[2022-04-15 06:32] LABS: ALBUMIN 1.4 GM/DL (3.2-5.2); BILIRUBIN,TOTAL 0.6 MG/DL (0.2-1.0); CREATININE FOR GFR 3.19 MG/DL (0.70-1.30); GLOMERULAR FILTRATION RATE 20.2 (>42); POTASSIUM SERUM 3.5 MEQ/L (3.5-5.1); TOTAL PROTEIN 4.7 GM/DL (6.4-8.2)
[2022-04-15] MEDS: INSULIN LISPRO (NovoLOG) PER UNIT SC SCH ×4 (08:09→21:00)
[2022-04-15] MEDS: ESCITALOPRAM OXALATE 5MG TABLET (LEXAPRO) PO SCH (08:10)
[2022-04-15] MEDS: CLOPIDOGREL 75 MG TAB PO SCH (08:10)
[2022-04-15] MEDS: PANTOPRAZOLE 40MG TAB (PROTONIX) PO SCH (08:10)
[2022-04-15] MEDS: allopurinoL 100 MG TAB PO SCH (08:10)
[2022-04-15] MEDS: FOLIC ACID 1MG TAB PO SCH (08:10)
[2022-04-15] MEDS: LACTOBACILLUS ACIDOPHILUS CAP (BACID) PO SCH ×2 (08:10→18:18)
[2022-04-15] MEDS: LEVEMIR (INSULIN DETEMIR) 1 UNITS/0.01ML SC SCH (08:10)
[2022-04-15] MEDS: SENNA 8.6 MG TAB (SENOKOT) PO SCH ×2 (08:10→21:00)
[2022-04-15] MEDS: DOCUSATE SODIUM 100MG CAPSULE PO SCH ×2 (08:10→21:00)
[2022-04-15] MEDS: MIRALAX *UNIT DOSE* 17GM PACKET PO SCH ×2 (08:11→21:00)
[2022-04-15] MEDS: GABAPENTIN 300 MG CAP PO SCH ×2 (08:11→21:55)
[2022-04-15] MEDS: HYDROMORPHONE HCL 0.5 MG/ 0.5 ML SYRINGE (J1170 PER 1) IV PRN ×4 (08:18→21:56)
[2022-04-15] MEDS ORDERED: FUROSEMIDE 100MG/10ML VIAL (J1940) IV ONE ×2 (10:05→17:00)
[2022-04-15] MEDS ORDERED: MORPHINE 4 MG/ML 1ML VIAL IV ONE (19:55)
[2022-04-15] MEDS: ATORVASTATIN 20 MG TAB PO SCH (21:55)
[2022-04-15] MEDS: EZETIMIBE 10MG TABLET (ZETIA) PO SCH (21:55)
[2022-04-16] VITALS (8 sets, daily range): BP systolic 103–143; BP diastolic 51–63; O2SAT 91–93
[2022-04-16] MEDS: HYDROMORPHONE HCL 0.5 MG/ 0.5 ML SYRINGE (J1170 PER 1) IV PRN ×7 (01:16→23:46)
[2022-04-16 06:08] LABS: HEMATOCRIT 27.7 % (42.0-52.0); HEMOGLOBIN 8.9 g/dl (13.5-17.5); MEAN CORPUSCULAR HEMOGLOBIN 29.3 pg (27.0-33.0); MEAN CORPUSCULAR HGB CONC 32.1 g/dl (32.0-36.5); MEAN CORPUSCULAR VOLUME 91.1 fl (80.0-96.0); PLATELET COUNT, AUTOMATED 237 10^3/uL (150-450); RED BLOOD COUNT 3.04 10^6/uL (4.30-6.10); WHITE BLOOD COUNT 10.9 10^3/uL (4.0-10.0)
[2022-04-16 06:46] LABS: ALBUMIN 1.5 GM/DL (3.2-5.2); BILIRUBIN,TOTAL 0.9 MG/DL (0.2-1.0); CREATININE FOR GFR 3.14 MG/DL (0.70-1.30); GLOMERULAR FILTRATION RATE 20.6 (>42); TOTAL PROTEIN 4.9 GM/DL (6.4-8.2)
[2022-04-16] MEDS: DOCUSATE SODIUM 100MG CAPSULE PO SCH ×2 (06:56→20:33)
[2022-04-16] MEDS: MIRALAX *UNIT DOSE* 17GM PACKET PO SCH ×2 (06:57→20:33)
[2022-04-16] MEDS: SENNA 8.6 MG TAB (SENOKOT) PO SCH ×2 (06:57→20:34)
[2022-04-16] MEDS: LEVEMIR (INSULIN DETEMIR) 1 UNITS/0.01ML SC SCH (07:19)
[2022-04-16] MEDS: ESCITALOPRAM OXALATE 5MG TABLET (LEXAPRO) PO SCH (07:50)
[2022-04-16] MEDS: LACTOBACILLUS ACIDOPHILUS CAP (BACID) PO SCH ×2 (07:50→17:46)
[2022-04-16] MEDS: CLOPIDOGREL 75 MG TAB PO SCH (07:51)
[2022-04-16] MEDS: INSULIN LISPRO (NovoLOG) PER UNIT SC SCH ×4 (07:51→20:34)
[2022-04-16] MEDS: GABAPENTIN 300 MG CAP PO SCH ×2 (07:52→20:30)
[2022-04-16] MEDS: allopurinoL 100 MG TAB PO SCH (07:52)
[2022-04-16] MEDS: PANTOPRAZOLE 40MG TAB (PROTONIX) PO SCH (07:52)
[2022-04-16] MEDS: FOLIC ACID 1MG TAB PO SCH (07:53)
[2022-04-16] MEDS: EZETIMIBE 10MG TABLET (ZETIA) PO SCH (20:30)
[2022-04-16] MEDS: ATORVASTATIN 20 MG TAB PO SCH (20:30)
[2022-04-17] VITALS: O2SAT 92
[2022-04-17 04:00] VITALS: O2SAT 94
[2022-04-17] MEDS: HYDROMORPHONE HCL 0.5 MG/ 0.5 ML SYRINGE (J1170 PER 1) IV PRN ×4 (05:10→21:05)
[2022-04-17 05:30] VITALS: BP 168/74
[2022-04-17 07:01] LABS: HEMATOCRIT 27.2 % (42.0-52.0); HEMOGLOBIN 8.8 g/dl (13.5-17.5); MEAN CORPUSCULAR HEMOGLOBIN 29.1 pg (27.0-33.0); MEAN CORPUSCULAR HGB CONC 32.4 g/dl (32.0-36.5); MEAN CORPUSCULAR VOLUME 90.1 fl (80.0-96.0); PLATELET COUNT, AUTOMATED 236 10^3/uL (150-450); RED BLOOD COUNT 3.02 10^6/uL (4.30-6.10); WHITE BLOOD COUNT 10.2 10^3/uL (4.0-10.0)
[2022-04-17 07:27] LABS: ALBUMIN 1.5 GM/DL (3.2-5.2); CREATININE FOR GFR 3.03 MG/DL (0.70-1.30); GLOMERULAR FILTRATION RATE 21.5 (>42); PHOSPHORUS LEVEL 4.4 MG/DL (2.5-4.9)
[2022-04-17 07:29] VITALS: BP 153/71
[2022-04-17] MEDS: LEVEMIR (INSULIN DETEMIR) 1 UNITS/0.01ML SC SCH (08:58)
[2022-04-17] MEDS: ESCITALOPRAM OXALATE 5MG TABLET (LEXAPRO) PO SCH (08:58)
[2022-04-17] MEDS: MIRALAX *UNIT DOSE* 17GM PACKET PO SCH ×3 (09:00→21:00)
[2022-04-17] MEDS: SENNA 8.6 MG TAB (SENOKOT) PO SCH ×2 (09:00→21:00)
[2022-04-17] MEDS: CLOPIDOGREL 75 MG TAB PO SCH (09:00)
[2022-04-17] MEDS: PANTOPRAZOLE 40MG TAB (PROTONIX) PO SCH (09:00)
[2022-04-17] MEDS: GABAPENTIN 300 MG CAP PO SCH ×2 (09:00→21:08)
[2022-04-17] MEDS: LACTOBACILLUS ACIDOPHILUS CAP (BACID) PO SCH ×2 (09:00→17:32)
[2022-04-17] MEDS: DOCUSATE SODIUM 100MG CAPSULE PO SCH ×2 (09:00→21:00)
[2022-04-17] MEDS: FOLIC ACID 1MG TAB PO SCH (09:00)
[2022-04-17] MEDS: INSULIN LISPRO (NovoLOG) PER UNIT SC SCH ×4 (09:01→20:59)
[2022-04-17] MEDS: allopurinoL 100 MG TAB PO SCH (09:05)
[2022-04-17 16:00] VITALS: BP 141/63
[2022-04-17 20:00] VITALS: BP 119/56
[2022-04-17] MEDS: EZETIMIBE 10MG TABLET (ZETIA) PO SCH (21:08)
[2022-04-17] MEDS: ATORVASTATIN 20 MG TAB PO SCH (21:08)
[2022-04-18 04:00] VITALS: BP 120/59
[2022-04-18 06:14] LABS: CALCIUM LEVEL 7.9 MG/DL (8.8-10.2); GLOMERULAR FILTRATION RATE 21.7 (>42); POTASSIUM SERUM 3.6 MEQ/L (3.5-5.1)
[2022-04-18] MEDS: INSULIN LISPRO (NovoLOG) PER UNIT SC SCH ×4 (07:30→20:46)
[2022-04-18 07:55] VITALS: BP 130/60
[2022-04-18] MEDS: PANTOPRAZOLE 40MG TAB (PROTONIX) PO SCH (08:09)
[2022-04-18] MEDS: ESCITALOPRAM OXALATE 5MG TABLET (LEXAPRO) PO SCH (08:09)
[2022-04-18] MEDS: GABAPENTIN 300 MG CAP PO SCH ×2 (08:09→20:58)
[2022-04-18] MEDS: LEVEMIR (INSULIN DETEMIR) 1 UNITS/0.01ML SC SCH (08:09)
[2022-04-18] MEDS: FOLIC ACID 1MG TAB PO SCH (08:09)
[2022-04-18] MEDS: LACTOBACILLUS ACIDOPHILUS CAP (BACID) PO SCH ×2 (08:09→18:01)
[2022-04-18] MEDS: CLOPIDOGREL 75 MG TAB PO SCH (08:10)
[2022-04-18] MEDS: DOCUSATE SODIUM 100MG CAPSULE PO SCH ×2 (08:10→20:59)
[2022-04-18] MEDS: MIRALAX *UNIT DOSE* 17GM PACKET PO SCH ×2 (08:11→21:00)
[2022-04-18] MEDS: SENNA 8.6 MG TAB (SENOKOT) PO SCH ×2 (08:11→21:00)
[2022-04-18] MEDS: allopurinoL 100 MG TAB PO SCH (08:16)
[2022-04-18] MEDS: CARVedilol 3.125 MG TAB PO SCH ×2 (09:00→20:59)
[2022-04-18] MEDS: HYDROMORPHONE HCL 0.5 MG/ 0.5 ML SYRINGE (J1170 PER 1) IV PRN ×4 (09:58→20:54)
[2022-04-18 12:42] VITALS: BP 113/60
[2022-04-18 16:00] VITALS: BP 123/61
[2022-04-18 20:00] VITALS: BP 151/70
[2022-04-18] MEDS ORDERED: CARV3.12 PO (20:44)
[2022-04-18] MEDS ORDERED: GABA-282 PO (20:48)
[2022-04-18] MEDS ORDERED: RAME8TAB2 PO (20:48)
[2022-04-18] MEDS ORDERED: DILA1INJ2 IV (20:48)
[2022-04-18] MEDS ORDERED: SENN18TA PO (20:48)
[2022-04-18] MEDS ORDERED: MIRA1POW3 PO (20:48)
[2022-04-18] MEDS ORDERED: INSUDET SC (20:48)
[2022-04-18] MEDS: ATORVASTATIN 20 MG TAB PO SCH (20:58)
[2022-04-18] MEDS: EZETIMIBE 10MG TABLET (ZETIA) PO SCH (20:58)
[2022-04-19] VITALS (19 sets, daily range): BP systolic 110–158; BP diastolic 58–78; O2SAT 93–98
[2022-04-19 07:15] LABS: HEMATOCRIT 30.6 % (42.0-52.0); HEMOGLOBIN 9.8 g/dl (13.5-17.5); MEAN CORPUSCULAR HEMOGLOBIN 29.5 pg (27.0-33.0); MEAN CORPUSCULAR VOLUME 92.2 fl (80.0-96.0); PLATELET COUNT, AUTOMATED 291 10^3/uL (150-450); RED BLOOD COUNT 3.32 10^6/uL (4.30-6.10); WHITE BLOOD COUNT 10.5 10^3/uL (4.0-10.0)
[2022-04-19] MEDS: HYDROMORPHONE HCL 0.5 MG/ 0.5 ML SYRINGE (J1170 PER 1) IV PRN ×3 (07:28→17:49)
[2022-04-19] MEDS ORDERED: HYDROMORPHONE HCL 0.5 MG/ 0.5 ML SYRINGE (J1170 PER 1) IV ONE (07:40)
[2022-04-19 08:05] LABS: ALBUMIN 1.6 GM/DL (3.2-5.2); CALCIUM LEVEL 8.4 MG/DL (8.8-10.2); CREATININE FOR GFR 2.22 MG/DL (0.70-1.30); GLOMERULAR FILTRATION RATE 30.7 (>42); PHOSPHORUS LEVEL 3.6 MG/DL (2.5-4.9); POTASSIUM SERUM 4.2 MEQ/L (3.5-5.1)
[2022-04-19] MEDS: INSULIN LISPRO (NovoLOG) PER UNIT SC SCH ×4 (08:24→21:00)
[2022-04-19] MEDS: LEVEMIR (INSULIN DETEMIR) 1 UNITS/0.01ML SC SCH (08:25)
[2022-04-19] MEDS: DOCUSATE SODIUM 100MG CAPSULE PO SCH ×2 (09:00→21:00)
[2022-04-19] MEDS: CARVedilol 3.125 MG TAB PO SCH ×2 (09:00→21:53)
[2022-04-19] MEDS: MIRALAX *UNIT DOSE* 17GM PACKET PO SCH ×2 (09:00→21:00)
[2022-04-19] MEDS: SENNA 8.6 MG TAB (SENOKOT) PO SCH ×2 (09:00→21:00)
[2022-04-19] MEDS: FOLIC ACID 1MG TAB PO SCH (09:50)
[2022-04-19] MEDS: GABAPENTIN 300 MG CAP PO SCH ×2 (09:50→21:53)
[2022-04-19] MEDS: ESCITALOPRAM OXALATE 5MG TABLET (LEXAPRO) PO SCH (09:50)
[2022-04-19] MEDS: PANTOPRAZOLE 40MG TAB (PROTONIX) PO SCH (09:51)
[2022-04-19] MEDS: allopurinoL 100 MG TAB PO SCH (09:51)
[2022-04-19] MEDS: LACTOBACILLUS ACIDOPHILUS CAP (BACID) PO SCH ×2 (09:51→17:48)
[2022-04-19] MEDS: CLOPIDOGREL 75 MG TAB PO SCH (09:52)
[2022-04-19] MEDS: ATORVASTATIN 20 MG TAB PO SCH (21:52)
[2022-04-19] MEDS: EZETIMIBE 10MG TABLET (ZETIA) PO SCH (21:52)
[2022-04-20] VITALS (27 sets, daily range): BP systolic 114–153; BP diastolic 56–70; O2SAT 93–99
[2022-04-20 06:40] LABS: HEMATOCRIT 26.8 % (42.0-52.0); HEMOGLOBIN 8.8 g/dl (13.5-17.5); MEAN CORPUSCULAR HEMOGLOBIN 30.2 pg (27.0-33.0); MEAN CORPUSCULAR HGB CONC 32.8 g/dl (32.0-36.5); MEAN CORPUSCULAR VOLUME 92.1 fl (80.0-96.0); PLATELET COUNT, AUTOMATED 266 10^3/uL (150-450); RED BLOOD COUNT 2.91 10^6/uL (4.30-6.10); WHITE BLOOD COUNT 10.3 10^3/uL (4.0-10.0)
[2022-04-20 07:17] LABS: ALBUMIN 1.5 GM/DL (3.2-5.2); CREATININE FOR GFR 2.46 MG/DL (0.70-1.30); GLOMERULAR FILTRATION RATE 27.3 (>42); PHOSPHORUS LEVEL 3.6 MG/DL (2.5-4.9); POTASSIUM SERUM 4.1 MEQ/L (3.5-5.1)
[2022-04-20] MEDS ORDERED: HYDROMORPHONE HCL 0.5 MG/ 0.5 ML SYRINGE (J1170 PER 1) IV ONE (07:25)
[2022-04-20] MEDS ORDERED: PERCOCET 5MG/325MG TAB PO PRN (07:30)
[2022-04-20] MEDS: INSULIN LISPRO (NovoLOG) PER UNIT SC SCH ×4 (08:25→22:46)
[2022-04-20] MEDS: ESCITALOPRAM OXALATE 5MG TABLET (LEXAPRO) PO SCH (08:28)
[2022-04-20] MEDS: CLOPIDOGREL 75 MG TAB PO SCH (08:28)
[2022-04-20] MEDS: PANTOPRAZOLE 40MG TAB (PROTONIX) PO SCH (08:28)
[2022-04-20] MEDS: allopurinoL 100 MG TAB PO SCH (08:28)
[2022-04-20] MEDS: LACTOBACILLUS ACIDOPHILUS CAP (BACID) PO SCH ×2 (08:28→17:50)
[2022-04-20] MEDS: FOLIC ACID 1MG TAB PO SCH (08:28)
[2022-04-20] MEDS: GABAPENTIN 300 MG CAP PO SCH ×2 (08:28→22:58)
[2022-04-20] MEDS: LEVEMIR (INSULIN DETEMIR) 1 UNITS/0.01ML SC SCH (09:00)
[2022-04-20] MEDS: MIRALAX *UNIT DOSE* 17GM PACKET PO SCH ×2 (09:00→22:58)
[2022-04-20] MEDS: DOCUSATE SODIUM 100MG CAPSULE PO SCH ×2 (09:00→22:58)
[2022-04-20] MEDS: SENNA 8.6 MG TAB (SENOKOT) PO SCH ×2 (09:00→22:59)
[2022-04-20] MEDS ORDERED: PERCOCET 5MG/325MG TAB PO ONE (13:05)
[2022-04-20] MEDS: CARVedilol 3.125 MG TAB PO SCH ×2 (13:26→22:57)
[2022-04-20] MEDS ORDERED: MORPHINE 4 MG/ML 1ML VIAL IV PRN (15:30)
[2022-04-20] MEDS: HYDROmorphone 4MG TABLET PO PRN ×2 (17:00→23:43)
[2022-04-20] MEDS: ATORVASTATIN 20 MG TAB PO SCH (22:56)
[2022-04-20] MEDS: EZETIMIBE 10MG TABLET (ZETIA) PO SCH (22:56)
[2022-04-20] MEDS: AMITRIPTYLINE 25MG TABLET PO SCH (22:57)
[2022-04-21] VITALS (21 sets, daily range): BP systolic 101–143; BP diastolic 51–65; O2SAT 93–98
[2022-04-21] MEDS: INSULIN LISPRO (NovoLOG) PER UNIT SC SCH ×4 (08:37→21:00)
[2022-04-21] MEDS: LEVEMIR (INSULIN DETEMIR) 1 UNITS/0.01ML SC SCH (08:38)
[2022-04-21] MEDS: LACTOBACILLUS ACIDOPHILUS CAP (BACID) PO SCH ×2 (08:38→18:34)
[2022-04-21] MEDS: GABAPENTIN 300 MG CAP PO SCH ×2 (08:38→20:18)
[2022-04-21] MEDS: ESCITALOPRAM OXALATE 5MG TABLET (LEXAPRO) PO SCH (08:38)
[2022-04-21] MEDS: allopurinoL 100 MG TAB PO SCH (08:39)
[2022-04-21] MEDS: PANTOPRAZOLE 40MG TAB (PROTONIX) PO SCH (08:39)
[2022-04-21] MEDS: CLOPIDOGREL 75 MG TAB PO SCH (08:39)
[2022-04-21] MEDS: FOLIC ACID 1MG TAB PO SCH (08:39)
[2022-04-21] MEDS: MIRALAX *UNIT DOSE* 17GM PACKET PO SCH ×2 (08:42→21:00)
[2022-04-21] MEDS: SENNA 8.6 MG TAB (SENOKOT) PO SCH ×2 (08:42→21:00)
[2022-04-21] MEDS: DOCUSATE SODIUM 100MG CAPSULE PO SCH ×2 (08:42→21:00)
[2022-04-21] MEDS: CARVedilol 3.125 MG TAB PO SCH ×2 (08:42→21:00)
[2022-04-21] MEDS: HYDROmorphone 4MG TABLET PO PRN ×2 (10:51→20:54)
[2022-04-21] MEDS ORDERED: DILA4TAB13 PO (16:01)
[2022-04-21] MEDS: EZETIMIBE 10MG TABLET (ZETIA) PO SCH (20:18)
[2022-04-21] MEDS: AMITRIPTYLINE 25MG TABLET PO SCH (20:18)
[2022-04-21] MEDS: ATORVASTATIN 20 MG TAB PO SCH (20:18)
[2022-04-22] VITALS (8 sets, daily range): BP systolic 112–128; BP diastolic 49–64
[2022-04-22] MEDS: HYDROmorphone 4MG TABLET PO PRN (05:59)
[2022-04-22 06:17] LABS: HEMATOCRIT 27.5 % (42.0-52.0); HEMOGLOBIN 8.6 g/dl (13.5-17.5); MEAN CORPUSCULAR HGB CONC 31.3 g/dl (32.0-36.5); MEAN CORPUSCULAR VOLUME 92.6 fl (80.0-96.0); PLATELET COUNT, AUTOMATED 248 10^3/uL (150-450); RED BLOOD COUNT 2.97 10^6/uL (4.30-6.10); WHITE BLOOD COUNT 9.7 10^3/uL (4.0-10.0)
[2022-04-22 06:48] LABS: ALBUMIN 1.6 GM/DL (3.2-5.2); CALCIUM LEVEL 8.4 MG/DL (8.8-10.2); CREATININE FOR GFR 2.56 MG/DL (0.70-1.30); GLOMERULAR FILTRATION RATE 26.1 (>42); PERCENT SATURATION 15.3 % (19.7-50.0); POTASSIUM SERUM 4.2 MEQ/L (3.5-5.1)
[2022-04-22] MEDS: LEVEMIR (INSULIN DETEMIR) 1 UNITS/0.01ML SC SCH (08:34)
[2022-04-22] MEDS: INSULIN LISPRO (NovoLOG) PER UNIT SC SCH ×4 (08:35→20:46)
[2022-04-22] MEDS: ESCITALOPRAM OXALATE 5MG TABLET (LEXAPRO) PO SCH (08:35)
[2022-04-22] MEDS: LACTOBACILLUS ACIDOPHILUS CAP (BACID) PO SCH ×2 (08:35→18:00)
[2022-04-22] MEDS: GABAPENTIN 300 MG CAP PO SCH (08:35)
[2022-04-22] MEDS: FOLIC ACID 1MG TAB PO SCH (08:35)
[2022-04-22] MEDS: DOCUSATE SODIUM 100MG CAPSULE PO SCH (08:36)
[2022-04-22] MEDS: SENNA 8.6 MG TAB (SENOKOT) PO SCH (08:37)
[2022-04-22] MEDS: CLOPIDOGREL 75 MG TAB PO SCH (08:37)
[2022-04-22] MEDS: allopurinoL 100 MG TAB PO SCH (08:37)
[2022-04-22] MEDS: MIRALAX *UNIT DOSE* 17GM PACKET PO SCH (08:37)
[2022-04-22] MEDS: PANTOPRAZOLE 40MG TAB (PROTONIX) PO SCH (08:37)
[2022-04-22] MEDS: CARVedilol 3.125 MG TAB PO SCH ×2 (08:40→20:25)
[2022-04-22] MEDS: NYSTATIN 100,000 UNITS/GM TOPICAL PWD 15 GM TOP SCH ×2 (12:29→20:57)
[2022-04-22] MEDS ORDERED: HYDROmorphone 4MG TABLET PO SCH ×2 (12:30→21:00)
[2022-04-22] MEDS ORDERED: NALOXONE INJ 0.4MG/1ML VIAL (J2310 PER 1MG) IV STA (16:06)
[2022-04-22] MEDS ORDERED: HYDROmorphone 2 MG TAB PO PRN (16:10)
[2022-04-22] MEDS ORDERED: NALOXONE 2MG/2ML SYRINGE (J2310 PER 1MG) IV STA (17:26)
[2022-04-22] MEDS: ONDANSETRON 4MG 2ML VIAL IV PRN (17:42)
[2022-04-22 17:50] LABS: ABG BASE EXCESS -2.1 (-2.0-2.0); ABG HCO3 21.4 MEQ/L (22.0-26.0); ABG O2 SATURATION 97.4 % (95.0-99.0); ABG PARTIAL PRESSURE CO2 31.7 mmHg (35.0-45.0); ABG PARTIAL PRESSURE O2 85.4 mmHg (75.0-100.0); ABG STANDARD HCO3 22.7 MEQ/L (22.0-26.0); ABG TOTAL CO2 22.4 MEQ/L (23.0-31.0); ABG pH (ARTERIAL) 7.447 UNITS (7.350-7.450)
[2022-04-22] MEDS: ALBUTEROL SULFATE 2.5 MG/0.5 ML INH NEB SOLN NEB SCH ×2 (18:13→18:18)
[2022-04-22] MEDS ORDERED: IPRATROPIUM 0.5MG/ALBUTEROL 2.5MG INH SOL UD 3ML (DUONEB) NEB PRN (18:20)
[2022-04-22] MEDS ORDERED: D5W/0.45% SODIUM CHLORIDE 1,000 ML IV SCH (18:20)
[2022-04-22] MEDS: EZETIMIBE 10MG TABLET (ZETIA) PO SCH (20:32)
[2022-04-22] MEDS: ATORVASTATIN 20 MG TAB PO SCH (20:32)
[2022-04-22] MEDS: cefTRIAXone SOD 2 GM in D5W MINI-BAG PLUS 50 ML IV SCH (20:57)
[2022-04-23] VITALS (12 sets, daily range): BP systolic 97–146; BP diastolic 55–98
[2022-04-23 06:21] LABS: ALBUMIN 1.8 GM/DL (3.2-5.2); CALCIUM LEVEL 8.6 MG/DL (8.8-10.2); CREATININE FOR GFR 2.68 MG/DL (0.70-1.30); GLOMERULAR FILTRATION RATE 24.7 (>42); PHOSPHORUS LEVEL 4.6 MG/DL (2.5-4.9); POTASSIUM SERUM 4.4 MEQ/L (3.5-5.1)
[2022-04-23] MEDS: INSULIN LISPRO (NovoLOG) PER UNIT SC SCH ×4 (08:54→20:28)
[2022-04-23] MEDS: CLOPIDOGREL 75 MG TAB PO SCH (08:55)
[2022-04-23] MEDS: LEVEMIR (INSULIN DETEMIR) 1 UNITS/0.01ML SC SCH (08:55)
[2022-04-23] MEDS: FUROSEMIDE 100MG/10ML VIAL (J1940) IV SCH ×2 (08:56→17:23)
[2022-04-23] MEDS: NYSTATIN 100,000 UNITS/GM TOPICAL PWD 15 GM TOP SCH ×2 (08:57→20:54)
[2022-04-23] MEDS ORDERED: FERRIC CARBOXYMALTOSE INJ 750 MG, VIAL MATE ADAPTER 1 EACH in NS 250 ML IV ONE (10:00)
[2022-04-23] MEDS: ACETAMINOPHEN TAB 650MG DOSE (2X325MG) PO PRN (13:02)
[2022-04-23] MEDS: LACTOBACILLUS ACIDOPHILUS CAP (BACID) PO SCH ×2 (18:20→18:39)
[2022-04-23] MEDS: cefTRIAXone SOD 2 GM in D5W MINI-BAG PLUS 50 ML IV SCH (18:36)
[2022-04-23] MEDS: ATORVASTATIN 20 MG TAB PO SCH (20:17)
[2022-04-23] MEDS: GABAPENTIN 300 MG CAP PO SCH (20:17)
[2022-04-23] MEDS: EZETIMIBE 10MG TABLET (ZETIA) PO SCH (20:17)
[2022-04-23] MEDS: TAMSULOSIN 0.4 MG CAP PO SCH (20:18)
[2022-04-23] MEDS: SENNA 8.6 MG TAB (SENOKOT) PO SCH (20:27)
[2022-04-23] MEDS: DOCUSATE SODIUM 100MG CAPSULE PO SCH (20:27)
[2022-04-23] MEDS: MIRALAX *UNIT DOSE* 17GM PACKET PO SCH (20:27)
[2022-04-23] MEDS: AMITRIPTYLINE 25MG TABLET PO SCH (20:54)
[2022-04-23] MEDS: HYDROmorphone 2 MG TAB PO PRN (20:59)
[2022-04-24] VITALS (14 sets, daily range): BP systolic 112–141; BP diastolic 56–65
[2022-04-24 06:05] LABS: BASO % 0.2 % (0.0-1.0); EOS # 0.5 10^3/uL (0.0-0.5); EOS % 4.7 % (0.0-3.0); HEMATOCRIT 25.1 % (42.0-52.0); HEMOGLOBIN 8.1 g/dl (13.5-17.5); LYMPH # 0.8 10^3/uL (1.5-5.0); LYMPH % 8.5 % (24.0-44.0); MEAN CORPUSCULAR HEMOGLOBIN 29.3 pg (27.0-33.0); MEAN CORPUSCULAR HGB CONC 32.3 g/dl (32.0-36.5); MEAN CORPUSCULAR VOLUME 90.9 fl (80.0-96.0); MONO # 0.8 10^3/uL (0.0-0.8); MONO % 8.8 % (2.0-8.0); NEUTROPHILS # 7.3 10^3/uL (1.5-8.5); NEUTROPHILS % 77.2 % (36.0-66.0); PLATELET COUNT, AUTOMATED 228 10^3/uL (150-450); RED BLOOD COUNT 2.76 10^6/uL (4.30-6.10); WHITE BLOOD COUNT 9.5 10^3/uL (4.0-10.0)
[2022-04-24 06:37] LABS: CALCIUM LEVEL 8.4 MG/DL (8.3-10.6); CREATININE FOR GFR 2.56 MG/DL (0.70-1.30); GLOMERULAR FILTRATION RATE 26.1 (>42); POTASSIUM SERUM 4.3 MMOL/L (3.5-5.1)
[2022-04-24] MEDS: INSULIN LISPRO (NovoLOG) PER UNIT SC SCH ×4 (08:46→20:20)
[2022-04-24] MEDS: FUROSEMIDE 100MG/10ML VIAL (J1940) IV SCH ×2 (08:47→16:44)
[2022-04-24] MEDS: PANTOPRAZOLE 40MG TAB (PROTONIX) PO SCH (08:47)
[2022-04-24] MEDS: GABAPENTIN 300 MG CAP PO SCH ×2 (08:47→20:26)
[2022-04-24] MEDS: DOCUSATE SODIUM 100MG CAPSULE PO SCH ×2 (08:47→20:25)
[2022-04-24] MEDS: LACTOBACILLUS ACIDOPHILUS CAP (BACID) PO SCH ×2 (08:48→17:48)
[2022-04-24] MEDS: CLOPIDOGREL 75 MG TAB PO SCH (08:48)
[2022-04-24] MEDS: FOLIC ACID 1MG TAB PO SCH (08:48)
[2022-04-24] MEDS: NYSTATIN 100,000 UNITS/GM TOPICAL PWD 15 GM TOP SCH ×2 (08:49→20:26)
[2022-04-24] MEDS: SENNA 8.6 MG TAB (SENOKOT) PO SCH ×2 (08:50→20:07)
[2022-04-24] MEDS: MIRALAX *UNIT DOSE* 17GM PACKET PO SCH ×2 (08:50→20:07)
[2022-04-24] MEDS: LEVEMIR (INSULIN DETEMIR) 1 UNITS/0.01ML SC SCH (08:50)
[2022-04-24] MEDS: allopurinoL 100 MG TAB PO SCH (10:06)
[2022-04-24] MEDS: DARBEPOETIN 100 MCG/0.5 ML *NON-DIALYSIS* SYRINGE (J0881) SC SCH (10:07)
[2022-04-24] MEDS: CARVedilol 3.125 MG TAB PO SCH ×2 (10:07→20:25)
[2022-04-24] MEDS: ESCITALOPRAM OXALATE 5MG TABLET (LEXAPRO) PO SCH (10:46)
[2022-04-24] MEDS: HYDROmorphone 2 MG TAB PO PRN ×2 (10:47→18:03)
[2022-04-24] MEDS: cefTRIAXone SOD 2 GM in D5W MINI-BAG PLUS 50 ML IV SCH (18:59)
[2022-04-24] MEDS: EZETIMIBE 10MG TABLET (ZETIA) PO SCH (20:25)
[2022-04-24] MEDS: AMITRIPTYLINE 25MG TABLET PO SCH (20:25)
[2022-04-24] MEDS: TAMSULOSIN 0.4 MG CAP PO SCH (20:25)
[2022-04-24] MEDS: ATORVASTATIN 20 MG TAB PO SCH (20:26)
[2022-04-25] VITALS (13 sets, daily range): BP systolic 118–142; BP diastolic 53–66
[2022-04-25 05:57] LABS: BASO % 0.2 % (0.0-1.0); EOS # 0.5 10^3/uL (0.0-0.5); EOS % 5.4 % (0.0-3.0); HEMATOCRIT 24.6 % (42.0-52.0); HEMOGLOBIN 7.7 g/dl (13.5-17.5); LYMPH # 0.8 10^3/uL (1.5-5.0); LYMPH % 9.1 % (24.0-44.0); MEAN CORPUSCULAR HEMOGLOBIN 28.9 pg (27.0-33.0); MEAN CORPUSCULAR HGB CONC 31.3 g/dl (32.0-36.5); MEAN CORPUSCULAR VOLUME 92.5 fl (80.0-96.0); MONO # 0.9 10^3/uL (0.0-0.8); MONO % 10.1 % (2.0-8.0); NEUTROPHILS # 6.8 10^3/uL (1.5-8.5); NEUTROPHILS % 74.9 % (36.0-66.0); PLATELET COUNT, AUTOMATED 223 10^3/uL (150-450); RED BLOOD COUNT 2.66 10^6/uL (4.30-6.10)
[2022-04-25 07:06] LABS: CALCIUM LEVEL 8.7 MG/DL (8.3-10.6); CREATININE FOR GFR 2.61 MG/DL (0.70-1.30); GLOMERULAR FILTRATION RATE 25.5 (>42); POTASSIUM SERUM 4.2 MMOL/L (3.5-5.1)
[2022-04-25] MEDS: LACTOBACILLUS ACIDOPHILUS CAP (BACID) PO SCH ×2 (08:06→17:46)
[2022-04-25] MEDS: INSULIN LISPRO (NovoLOG) PER UNIT SC SCH ×4 (08:07→19:57)
[2022-04-25] MEDS: MIRALAX *UNIT DOSE* 17GM PACKET PO SCH ×2 (09:00→20:14)
[2022-04-25] MEDS: SENNA 8.6 MG TAB (SENOKOT) PO SCH ×3 (09:00→20:10)
[2022-04-25] MEDS: CARVedilol 3.125 MG TAB PO SCH ×3 (09:00→20:12)
[2022-04-25] MEDS: LEVEMIR (INSULIN DETEMIR) 1 UNITS/0.01ML SC SCH (09:08)
[2022-04-25] MEDS: ESCITALOPRAM OXALATE 5MG TABLET (LEXAPRO) PO SCH (09:08)
[2022-04-25] MEDS: PANTOPRAZOLE 40MG TAB (PROTONIX) PO SCH (09:09)
[2022-04-25] MEDS: DOCUSATE SODIUM 100MG CAPSULE PO SCH ×2 (09:09→20:10)
[2022-04-25] MEDS: CLOPIDOGREL 75 MG TAB PO SCH (09:13)
[2022-04-25] MEDS: allopurinoL 100 MG TAB PO SCH (09:13)
[2022-04-25] MEDS: FOLIC ACID 1MG TAB PO SCH (09:13)
[2022-04-25] MEDS: GABAPENTIN 300 MG CAP PO SCH ×2 (09:13→20:10)
[2022-04-25] MEDS: FUROSEMIDE 100MG/10ML VIAL (J1940) IV SCH ×2 (09:27→17:03)
[2022-04-25] MEDS: ACETAMINOPHEN TAB 650MG DOSE (2X325MG) PO PRN (10:30)
[2022-04-25] MEDS: NYSTATIN 100,000 UNITS/GM TOPICAL PWD 15 GM TOP SCH ×2 (15:38→20:11)
[2022-04-25] MEDS: HYDROmorphone 2 MG TAB PO PRN (19:49)
[2022-04-25] MEDS: cefTRIAXone SOD 2 GM in D5W MINI-BAG PLUS 50 ML IV SCH (19:49)
[2022-04-25] MEDS: ATORVASTATIN 20 MG TAB PO SCH (20:10)
[2022-04-25] MEDS: TAMSULOSIN 0.4 MG CAP PO SCH (20:10)
[2022-04-25] MEDS: AMITRIPTYLINE 25MG TABLET PO SCH (20:10)
[2022-04-25] MEDS: EZETIMIBE 10MG TABLET (ZETIA) PO SCH (20:11)
[2022-04-26 06:00] VITALS: BP 142/65
[2022-04-26] MEDS: INSULIN LISPRO (NovoLOG) PER UNIT SC SCH ×4 (07:30→21:00)
[2022-04-26 07:31] LABS: BASO % 0.4 % (0.0-1.0); EOS # 0.4 10^3/uL (0.0-0.5); EOS % 4.5 % (0.0-3.0); HEMATOCRIT 26.6 % (42.0-52.0); HEMOGLOBIN 8.5 g/dl (13.5-17.5); LYMPH # 0.9 10^3/uL (1.5-5.0); LYMPH % 9.4 % (24.0-44.0); MEAN CORPUSCULAR HEMOGLOBIN 29.4 pg (27.0-33.0); MONO # 0.8 10^3/uL (0.0-0.8); MONO % 8.7 % (2.0-8.0); NEUTROPHILS # 6.9 10^3/uL (1.5-8.5); NEUTROPHILS % 76.4 % (36.0-66.0); PLATELET COUNT, AUTOMATED 227 10^3/uL (150-450); RED BLOOD COUNT 2.89 10^6/uL (4.30-6.10); WHITE BLOOD COUNT 9.1 10^3/uL (4.0-10.0)
[2022-04-26] MEDS: LEVEMIR (INSULIN DETEMIR) 1 UNITS/0.01ML SC SCH (07:38)
[2022-04-26 07:39] LABS: INR 1.39; PARTIAL THROMBOPLASTIN TIME 37.5 SECONDS (24.8-34.2); PROTHROMBIN TIME 17.4 SECONDS (12.5-14.5)
[2022-04-26 08:11] LABS: CALCIUM LEVEL 8.6 MG/DL (8.3-10.6); CREATININE FOR GFR 2.51 MG/DL (0.70-1.30); GLOMERULAR FILTRATION RATE 26.7 (>42); MAGNESIUM LEVEL 1.4 MG/DL (1.8-2.4); POTASSIUM SERUM 4.2 MMOL/L (3.5-5.1)
[2022-04-26] MEDS: MIRALAX *UNIT DOSE* 17GM PACKET PO SCH ×2 (09:00→21:00)
[2022-04-26] MEDS: CLOPIDOGREL 75 MG TAB PO SCH (09:00)
[2022-04-26] MEDS: FUROSEMIDE 100MG/10ML VIAL (J1940) IV SCH ×2 (09:02→17:43)
[2022-04-26] MEDS: LACTOBACILLUS ACIDOPHILUS CAP (BACID) PO SCH ×2 (09:03→17:44)
[2022-04-26] MEDS: DOCUSATE SODIUM 100MG CAPSULE PO SCH ×2 (09:03→21:24)
[2022-04-26] MEDS: FOLIC ACID 1MG TAB PO SCH (09:03)
[2022-04-26] MEDS: GABAPENTIN 300 MG CAP PO SCH ×2 (09:03→21:24)
[2022-04-26] MEDS: SENNA 8.6 MG TAB (SENOKOT) PO SCH ×2 (09:03→21:26)
[2022-04-26] MEDS: PANTOPRAZOLE 40MG TAB (PROTONIX) PO SCH (09:03)
[2022-04-26] MEDS: allopurinoL 100 MG TAB PO SCH (09:04)
[2022-04-26] MEDS: NYSTATIN 100,000 UNITS/GM TOPICAL PWD 15 GM TOP SCH ×2 (09:04→21:28)
[2022-04-26] MEDS: ESCITALOPRAM OXALATE 5MG TABLET (LEXAPRO) PO SCH (09:04)
[2022-04-26] MEDS: CARVedilol 3.125 MG TAB PO SCH ×2 (09:04→21:24)
[2022-04-26] MEDS: MAG SULF 1GM/100ML (MAG RUN) 1 GM in IV 1 EA IV SCH ×2 (10:09→11:17)
[2022-04-26] MEDS ORDERED: LIDOCAINE 2% 100MG/5ML SDV (FOR ANES.) As Ordered ONE (11:19)
[2022-04-26] MEDS ORDERED: propofoL 200 MG/20 ML VIAL As Ordered ONE (11:19)
[2022-04-26] MEDS ORDERED: ONDANSETRON 4MG 2ML VIAL As Ordered ONE (11:31)
[2022-04-26] MEDS ORDERED: propofoL 500 MG/50 ML VIAL As Ordered ONE (11:48)
[2022-04-26] MEDS ORDERED: dexameTHASONE 4 MG/ML 1ML VIAL (J1100 PER 1MG) As Ordered ONE (11:51)
[2022-04-26] MEDS ORDERED: KETAMINE HCL 200 MG/20 ML VIAL As Ordered ONE (11:51)
[2022-04-26] MEDS ORDERED: ROCURONIUM BROMIDE 50 MG/5 ML VIAL As Ordered ONE (13:00)
[2022-04-26] MEDS ORDERED: fentaNYL 250 MCG/5 ML INJECTION As Ordered ONE (13:00)
[2022-04-26] MEDS ORDERED: ETOMIDATE INJ 20MG/10ML VIAL As Ordered ONE (13:12)
[2022-04-26] MEDS ORDERED: BUPIVACAINE/EPIN 0.5% 30 ML VIAL As Ordered ONE (13:41)
[2022-04-26] MEDS ORDERED: SUGAMMADEX SODIUM 500 MG/5 ML VIAL (BRIDION) As Ordered ONE (14:40)
[2022-04-26] MEDS ORDERED: fentaNYL 100 MCG/2 ML INJECTION IV PRN (15:05)
[2022-04-26] MEDS ORDERED: ONDANSETRON 4MG 2ML VIAL IV PRN (15:05)
[2022-04-26] MEDS ORDERED: LR 1,000 ML IV SCH (15:05)
[2022-04-26] MEDS ORDERED: oxyCODONE 5MG TAB PO PRN (15:05)
[2022-04-26] MEDS ORDERED: HYDROMORPHONE HCL 0.5 MG/ 0.5 ML SYRINGE (J1170 PER 1) IV PRN (15:05)
[2022-04-26 16:20] VITALS: BP 159/80
[2022-04-26 16:55] VITALS: BP 160/81
[2022-04-26] MEDS: HYDROmorphone 2 MG TAB PO PRN (17:45)
[2022-04-26] MEDS: cefTRIAXone SOD 2 GM in D5W MINI-BAG PLUS 50 ML IV SCH (18:52)
[2022-04-26 19:09] VITALS: BP 156/79
[2022-04-26 20:59] VITALS: BP 152/74
[2022-04-26] MEDS: TAMSULOSIN 0.4 MG CAP PO SCH (21:24)
[2022-04-26] MEDS: EZETIMIBE 10MG TABLET (ZETIA) PO SCH (21:24)
[2022-04-26] MEDS: AMITRIPTYLINE 25MG TABLET PO SCH (21:26)
[2022-04-26] MEDS: ATORVASTATIN 20 MG TAB PO SCH (21:27)
[2022-04-26] MEDS: RAMELTEON 8 MG TAB (ROZEREM) PO PRN (21:30)
[2022-04-27 02:00] VITALS: BP 151/72
[2022-04-27 04:52] VITALS: BP 151/72
[2022-04-27 07:39] LABS: BASO % 0.2 % (0.0-1.0); HEMATOCRIT 31.5 % (42.0-52.0); LYMPH # 0.6 10^3/uL (1.5-5.0); LYMPH % 7.1 % (24.0-44.0); MEAN CORPUSCULAR HEMOGLOBIN 28.9 pg (27.0-33.0); MEAN CORPUSCULAR HGB CONC 31.7 g/dl (32.0-36.5); MONO # 0.6 10^3/uL (0.0-0.8); MONO % 6.2 % (2.0-8.0); NEUTROPHILS # 7.7 10^3/uL (1.5-8.5); NEUTROPHILS % 86.2 % (36.0-66.0); PLATELET COUNT, AUTOMATED 280 10^3/uL (150-450); RED BLOOD COUNT 3.46 10^6/uL (4.30-6.10); WHITE BLOOD COUNT 8.9 10^3/uL (4.0-10.0)
[2022-04-27 08:17] LABS: CALCIUM LEVEL 9.2 MG/DL (8.3-10.6); CREATININE FOR GFR 2.42 MG/DL (0.70-1.30); GLOMERULAR FILTRATION RATE 27.8 (>42); POTASSIUM SERUM 4.5 MMOL/L (3.5-5.1)
[2022-04-27] MEDS: HYDROmorphone 2 MG TAB PO PRN ×2 (08:37→17:25)
[2022-04-27] MEDS: FUROSEMIDE 100MG/10ML VIAL (J1940) IV SCH ×2 (08:38→17:27)
[2022-04-27] MEDS: INSULIN LISPRO (NovoLOG) PER UNIT SC SCH ×4 (08:41→20:39)
[2022-04-27] MEDS: FOLIC ACID 1MG TAB PO SCH (08:41)
[2022-04-27] MEDS: LEVEMIR (INSULIN DETEMIR) 1 UNITS/0.01ML SC SCH (08:41)
[2022-04-27] MEDS: LACTOBACILLUS ACIDOPHILUS CAP (BACID) PO SCH ×2 (08:42→17:27)
[2022-04-27] MEDS: CLOPIDOGREL 75 MG TAB PO SCH (08:42)
[2022-04-27] MEDS: GABAPENTIN 300 MG CAP PO SCH ×2 (08:43→20:38)
[2022-04-27] MEDS: PANTOPRAZOLE 40MG TAB (PROTONIX) PO SCH (08:43)
[2022-04-27] MEDS: allopurinoL 100 MG TAB PO SCH (08:43)
[2022-04-27] MEDS: ESCITALOPRAM OXALATE 5MG TABLET (LEXAPRO) PO SCH (08:43)
[2022-04-27] MEDS: CARVedilol 3.125 MG TAB PO SCH ×2 (08:44→20:38)
[2022-04-27] MEDS: NYSTATIN 100,000 UNITS/GM TOPICAL PWD 15 GM TOP SCH ×2 (08:46→20:40)
[2022-04-27] MEDS: MIRALAX *UNIT DOSE* 17GM PACKET PO SCH ×2 (09:00→20:39)
[2022-04-27] MEDS: SENNA 8.6 MG TAB (SENOKOT) PO SCH ×2 (09:00→20:39)
[2022-04-27] MEDS: DOCUSATE SODIUM 100MG CAPSULE PO SCH ×2 (09:00→20:39)
[2022-04-27 10:29] LABS: MAGNESIUM LEVEL 1.6 MG/DL (1.8-2.4)
[2022-04-27] MEDS: ACETAMINOPHEN TAB 650MG DOSE (2X325MG) PO PRN ×2 (12:59→20:38)
[2022-04-27 14:56] VITALS: BP 109/52
[2022-04-27] MEDS: cefTRIAXone SOD 2 GM in D5W MINI-BAG PLUS 50 ML IV SCH (17:55)
[2022-04-27 20:35] VITALS: BP 127/59
[2022-04-27] MEDS: RAMELTEON 8 MG TAB (ROZEREM) PO PRN (20:37)
[2022-04-27] MEDS: EZETIMIBE 10MG TABLET (ZETIA) PO SCH (20:37)
[2022-04-27] MEDS: AMITRIPTYLINE 25MG TABLET PO SCH (20:38)
[2022-04-27] MEDS: TAMSULOSIN 0.4 MG CAP PO SCH (20:38)
[2022-04-27] MEDS: ATORVASTATIN 20 MG TAB PO SCH (20:38)
[2022-04-27] MEDS: MAG SULF 1GM/100ML (MAG RUN) 1 GM in IV 1 EA IV SCH ×2 (20:39→21:44)
[2022-04-27 21:00] VITALS: O2SAT 96
[2022-04-28 05:55] VITALS: BP 125/60
[2022-04-28 08:14] LABS: BASO % 0.5 % (0.0-1.0); EOS # 0.3 10^3/uL (0.0-0.5); EOS % 3.5 % (0.0-3.0); HEMATOCRIT 31.4 % (42.0-52.0); HEMOGLOBIN 9.8 g/dl (13.5-17.5); LYMPH # 1.1 10^3/uL (1.5-5.0); LYMPH % 12.8 % (24.0-44.0); MEAN CORPUSCULAR HEMOGLOBIN 28.9 pg (27.0-33.0); MEAN CORPUSCULAR HGB CONC 31.2 g/dl (32.0-36.5); MEAN CORPUSCULAR VOLUME 92.6 fl (80.0-96.0); MONO # 0.7 10^3/uL (0.0-0.8); MONO % 8.4 % (2.0-8.0); NEUTROPHILS # 6.2 10^3/uL (1.5-8.5); NEUTROPHILS % 74.4 % (36.0-66.0); PLATELET COUNT, AUTOMATED 283 10^3/uL (150-450); RED BLOOD COUNT 3.39 10^6/uL (4.30-6.10); WHITE BLOOD COUNT 8.4 10^3/uL (4.0-10.0)
[2022-04-28 08:51] LABS: CALCIUM LEVEL 8.4 MG/DL (8.3-10.6); CREATININE FOR GFR 2.6 MG/DL (0.70-1.30); GLOMERULAR FILTRATION RATE 25.6 (>42); MAGNESIUM LEVEL 1.9 MG/DL (1.8-2.4); POTASSIUM SERUM 4.4 MMOL/L (3.5-5.1)
[2022-04-28] MEDS: MIRALAX *UNIT DOSE* 17GM PACKET PO SCH ×3 (09:00→20:01)
[2022-04-28] MEDS: CARVedilol 3.125 MG TAB PO SCH ×2 (09:00→20:01)
[2022-04-28] MEDS: FUROSEMIDE 100MG/10ML VIAL (J1940) IV SCH ×2 (09:11→17:11)
[2022-04-28] MEDS: LEVEMIR (INSULIN DETEMIR) 1 UNITS/0.01ML SC SCH (09:12)
[2022-04-28] MEDS: DOCUSATE SODIUM 100MG CAPSULE PO SCH ×2 (09:14→20:00)
[2022-04-28] MEDS: SENNA 8.6 MG TAB (SENOKOT) PO SCH ×2 (09:14→20:00)
[2022-04-28] MEDS: FOLIC ACID 1MG TAB PO SCH (09:14)
[2022-04-28] MEDS: LACTOBACILLUS ACIDOPHILUS CAP (BACID) PO SCH ×2 (09:14→18:10)
[2022-04-28] MEDS: ESCITALOPRAM OXALATE 5MG TABLET (LEXAPRO) PO SCH (09:14)
[2022-04-28] MEDS: INSULIN LISPRO (NovoLOG) PER UNIT SC SCH ×4 (09:14→20:24)
[2022-04-28] MEDS: CLOPIDOGREL 75 MG TAB PO SCH (09:14)
[2022-04-28] MEDS: allopurinoL 100 MG TAB PO SCH (09:14)
[2022-04-28] MEDS: PANTOPRAZOLE 40MG TAB (PROTONIX) PO SCH (09:14)
[2022-04-28] MEDS: GABAPENTIN 300 MG CAP PO SCH ×2 (09:14→20:00)
[2022-04-28] MEDS: HYDROmorphone 2 MG TAB PO PRN ×2 (09:15→17:12)
[2022-04-28] MEDS: NYSTATIN 100,000 UNITS/GM TOPICAL PWD 15 GM TOP SCH ×2 (09:15→20:01)
[2022-04-28 09:18] LABS: HEMOGLOBIN A1c 6.2 % (4.0-6.0)
[2022-04-28 14:38] VITALS: BP 120/73
[2022-04-28] MEDS: cefTRIAXone SOD 2 GM in D5W MINI-BAG PLUS 50 ML IV SCH (18:10)
[2022-04-28] MEDS: AMITRIPTYLINE 25MG TABLET PO SCH (19:59)
[2022-04-28] MEDS: TAMSULOSIN 0.4 MG CAP PO SCH (19:59)
[2022-04-28] MEDS: traMADol 50 MG TAB PO SCH (19:59)
[2022-04-28] MEDS: ACETAMINOPHEN 500 MG TAB PO SCH (20:00)
[2022-04-28] MEDS: EZETIMIBE 10MG TABLET (ZETIA) PO SCH (20:00)
[2022-04-28] MEDS: ATORVASTATIN 20 MG TAB PO SCH (20:00)
[2022-04-28 22:00] VITALS: BP 117/40
[2022-04-29 05:25] VITALS: BP 135/62
[2022-04-29 06:09] LABS: BASO # 0.1 10^3/uL (0.0-0.2); BASO % 0.6 % (0.0-1.0); EOS # 0.7 10^3/uL (0.0-0.5); EOS % 6.6 % (0.0-3.0); HEMATOCRIT 29.9 % (42.0-52.0); HEMOGLOBIN 9.4 g/dl (13.5-17.5); LYMPH # 1.4 10^3/uL (1.5-5.0); LYMPH % 13.2 % (24.0-44.0); MEAN CORPUSCULAR HEMOGLOBIN 29.2 pg (27.0-33.0); MEAN CORPUSCULAR HGB CONC 31.4 g/dl (32.0-36.5); MEAN CORPUSCULAR VOLUME 92.9 fl (80.0-96.0); MONO # 0.9 10^3/uL (0.0-0.8); MONO % 8.8 % (2.0-8.0); NEUTROPHILS # 7.4 10^3/uL (1.5-8.5); NEUTROPHILS % 70.3 % (36.0-66.0); PLATELET COUNT, AUTOMATED 290 10^3/uL (150-450); RED BLOOD COUNT 3.22 10^6/uL (4.30-6.10); WHITE BLOOD COUNT 10.5 10^3/uL (4.0-10.0)
[2022-04-29 06:57] LABS: CALCIUM LEVEL 8.1 MG/DL (8.3-10.6); CREATININE FOR GFR 2.44 MG/DL (0.70-1.30); GLOMERULAR FILTRATION RATE 27.6 (>42); POTASSIUM SERUM 4.5 MMOL/L (3.5-5.1)
[2022-04-29] MEDS: CARVedilol 3.125 MG TAB PO SCH ×2 (08:02→21:00)
[2022-04-29] MEDS: MIRALAX *UNIT DOSE* 17GM PACKET PO SCH ×2 (08:59→21:00)
[2022-04-29] MEDS: INSULIN LISPRO (NovoLOG) PER UNIT SC SCH ×4 (09:00→21:00)
[2022-04-29] MEDS: DOCUSATE SODIUM 100MG CAPSULE PO SCH ×2 (09:01→21:03)
[2022-04-29] MEDS: CLOPIDOGREL 75 MG TAB PO SCH (09:01)
[2022-04-29] MEDS: ESCITALOPRAM OXALATE 5MG TABLET (LEXAPRO) PO SCH (09:01)
[2022-04-29] MEDS: LACTOBACILLUS ACIDOPHILUS CAP (BACID) PO SCH ×2 (09:01→18:11)
[2022-04-29] MEDS: LEVEMIR (INSULIN DETEMIR) 1 UNITS/0.01ML SC SCH (09:01)
[2022-04-29] MEDS: FOLIC ACID 1MG TAB PO SCH (09:01)
[2022-04-29] MEDS: ACETAMINOPHEN 500 MG TAB PO SCH ×2 (09:01→21:00)
[2022-04-29] MEDS: SENNA 8.6 MG TAB (SENOKOT) PO SCH ×2 (09:01→20:58)
[2022-04-29] MEDS: PANTOPRAZOLE 40MG TAB (PROTONIX) PO SCH (09:02)
[2022-04-29] MEDS: GABAPENTIN 300 MG CAP PO SCH ×2 (09:02→21:01)
[2022-04-29] MEDS: allopurinoL 100 MG TAB PO SCH (09:02)
[2022-04-29] MEDS: traMADol 50 MG TAB PO SCH ×2 (09:02→21:11)
[2022-04-29] MEDS: NYSTATIN 100,000 UNITS/GM TOPICAL PWD 15 GM TOP SCH ×2 (09:03→21:03)
[2022-04-29] MEDS: HYDROmorphone 2 MG TAB PO PRN ×2 (09:54→18:15)
[2022-04-29] MEDS: TORSEMIDE (DEMADEX) 50 MG PER 1/2 TAB PO SCH ×2 (09:54→18:12)
[2022-04-29 14:00] VITALS: BP 140/55
[2022-04-29] MEDS ORDERED: FERRIC CARBOXYMALTOSE INJ 750 MG, VIAL MATE ADAPTER 1 EACH in NS 250 ML IV ONE (14:00)
[2022-04-29] MEDS: EZETIMIBE 10MG TABLET (ZETIA) PO SCH (21:02)
[2022-04-29] MEDS: TAMSULOSIN 0.4 MG CAP PO SCH (21:02)
[2022-04-29] MEDS: AMITRIPTYLINE 25MG TABLET PO SCH (21:02)
[2022-04-29] MEDS: ATORVASTATIN 20 MG TAB PO SCH (21:03)
[2022-04-29 21:25] VITALS: BP 116/63
[2022-04-30 05:36] VITALS: BP 119/63
[2022-04-30 06:25] LABS: BASO % 0.3 % (0.0-1.0); EOS # 0.7 10^3/uL (0.0-0.5); EOS % 6.4 % (0.0-3.0); HEMATOCRIT 31.2 % (42.0-52.0); HEMOGLOBIN 9.7 g/dl (13.5-17.5); LYMPH # 1.2 10^3/uL (1.5-5.0); LYMPH % 10.9 % (24.0-44.0); MEAN CORPUSCULAR HEMOGLOBIN 29.1 pg (27.0-33.0); MEAN CORPUSCULAR HGB CONC 31.1 g/dl (32.0-36.5); MEAN CORPUSCULAR VOLUME 93.7 fl (80.0-96.0); MONO # 0.9 10^3/uL (0.0-0.8); MONO % 8.6 % (2.0-8.0); NEUTROPHILS # 7.8 10^3/uL (1.5-8.5); NEUTROPHILS % 73.4 % (36.0-66.0); PLATELET COUNT, AUTOMATED 297 10^3/uL (150-450); RED BLOOD COUNT 3.33 10^6/uL (4.30-6.10); WHITE BLOOD COUNT 10.6 10^3/uL (4.0-10.0)
[2022-04-30 06:33] LABS: CALCIUM LEVEL 8.1 MG/DL (8.3-10.6); CREATININE FOR GFR 2.32 MG/DL (0.70-1.30); GLOMERULAR FILTRATION RATE 29.2 (>42); POTASSIUM SERUM 4.7 MMOL/L (3.5-5.1)
[2022-04-30] MEDS: FOLIC ACID 1MG TAB PO SCH (08:37)
[2022-04-30] MEDS: ESCITALOPRAM OXALATE 5MG TABLET (LEXAPRO) PO SCH (08:38)
[2022-04-30] MEDS: LACTOBACILLUS ACIDOPHILUS CAP (BACID) PO SCH ×2 (08:38→17:14)
[2022-04-30] MEDS: DOCUSATE SODIUM 100MG CAPSULE PO SCH ×2 (08:38→20:54)
[2022-04-30] MEDS: ACETAMINOPHEN 500 MG TAB PO SCH ×2 (08:38→20:56)
[2022-04-30] MEDS: CLOPIDOGREL 75 MG TAB PO SCH (08:38)
[2022-04-30] MEDS: SENNA 8.6 MG TAB (SENOKOT) PO SCH ×2 (08:38→20:54)
[2022-04-30] MEDS: allopurinoL 100 MG TAB PO SCH (08:39)
[2022-04-30] MEDS: TORSEMIDE 20 MG TAB PO SCH ×2 (08:39→17:14)
[2022-04-30] MEDS: MIRALAX *UNIT DOSE* 17GM PACKET PO SCH ×2 (08:39→20:57)
[2022-04-30] MEDS: PANTOPRAZOLE 40MG TAB (PROTONIX) PO SCH (08:39)
[2022-04-30] MEDS: GABAPENTIN 300 MG CAP PO SCH ×2 (08:39→20:55)
[2022-04-30] MEDS: CARVedilol 3.125 MG TAB PO SCH ×2 (08:41→20:56)
[2022-04-30] MEDS: INSULIN LISPRO (NovoLOG) PER UNIT SC SCH ×4 (08:42→20:57)
[2022-04-30] MEDS: LEVEMIR (INSULIN DETEMIR) 1 UNITS/0.01ML SC SCH (08:43)
[2022-04-30] MEDS: NYSTATIN 100,000 UNITS/GM TOPICAL PWD 15 GM TOP SCH ×2 (08:43→20:57)
[2022-04-30] MEDS: HYDROmorphone 2 MG TAB PO PRN ×2 (08:43→17:13)
[2022-04-30] MEDS: traMADol 50 MG TAB PO SCH ×2 (08:44→20:54)
[2022-04-30 14:00] VITALS: BP 123/61
[2022-04-30] MEDS: ACETAMINOPHEN TAB 650MG DOSE (2X325MG) PO PRN (19:03)
[2022-04-30] MEDS: EZETIMIBE 10MG TABLET (ZETIA) PO SCH (20:52)
[2022-04-30] MEDS: ATORVASTATIN 20 MG TAB PO SCH (20:54)
[2022-04-30] MEDS: TAMSULOSIN 0.4 MG CAP PO SCH (20:54)
[2022-04-30] MEDS: AMITRIPTYLINE 25MG TABLET PO SCH (20:55)
[2022-04-30 20:57] VITALS: BP 122/61
[2022-05-01 05:27] VITALS: BP 124/60
[2022-05-01 05:39] LABS: HEMATOCRIT 32.1 % (42.0-52.0); HEMOGLOBIN 10.2 g/dl (13.5-17.5); MEAN CORPUSCULAR HEMOGLOBIN 29.2 pg (27.0-33.0); MEAN CORPUSCULAR HGB CONC 31.8 g/dl (32.0-36.5); PLATELET COUNT, AUTOMATED 289 10^3/uL (150-450); RED BLOOD COUNT 3.49 10^6/uL (4.30-6.10)
[2022-05-01 06:10] LABS: ALBUMIN 2.3 G/DL (3.2-5.2); CALCIUM LEVEL 8.4 MG/DL (8.3-10.6); CREATININE FOR GFR 2.46 MG/DL (0.70-1.30); GLOMERULAR FILTRATION RATE 27.3 (>42); POTASSIUM SERUM 4.8 MMOL/L (3.5-5.1)
[2022-05-01] MEDS ORDERED: LIDOCAINE 1% MDV 20ML VIAL As Ordered ONE (08:57)
[2022-05-01] MEDS: PANTOPRAZOLE 40MG TAB (PROTONIX) PO SCH (09:00)
[2022-05-01] MEDS: FOLIC ACID 1MG TAB PO SCH (09:00)
[2022-05-01] MEDS: NYSTATIN 100,000 UNITS/GM TOPICAL PWD 15 GM TOP SCH ×2 (09:00→20:51)
[2022-05-01] MEDS: traMADol 50 MG TAB PO SCH ×2 (09:00→20:51)
[2022-05-01] MEDS: LEVEMIR (INSULIN DETEMIR) 1 UNITS/0.01ML SC SCH (09:00)
[2022-05-01] MEDS: CLOPIDOGREL 75 MG TAB PO SCH (09:00)
[2022-05-01] MEDS: allopurinoL 100 MG TAB PO SCH (09:00)
[2022-05-01] MEDS: LACTOBACILLUS ACIDOPHILUS CAP (BACID) PO SCH ×2 (09:00→17:23)
[2022-05-01] MEDS: INSULIN LISPRO (NovoLOG) PER UNIT SC SCH ×4 (09:00→20:38)
[2022-05-01] MEDS: GABAPENTIN 300 MG CAP PO SCH ×2 (09:00→20:50)
[2022-05-01] MEDS: CARVedilol 3.125 MG TAB PO SCH ×2 (09:00→20:37)
[2022-05-01] MEDS: MIRALAX *UNIT DOSE* 17GM PACKET PO SCH ×2 (09:00→20:49)
[2022-05-01] MEDS: DARBEPOETIN 100 MCG/0.5 ML *NON-DIALYSIS* SYRINGE (J0881) SC SCH (09:00)
[2022-05-01] MEDS: ESCITALOPRAM OXALATE 5MG TABLET (LEXAPRO) PO SCH (09:00)
[2022-05-01] MEDS: DOCUSATE SODIUM 100MG CAPSULE PO SCH ×2 (09:00→20:50)
[2022-05-01] MEDS: SENNA 8.6 MG TAB (SENOKOT) PO SCH (09:00)
[2022-05-01] MEDS ORDERED: diphenhydrAMINE 50MG/ML VIAL IV STA (09:37)
[2022-05-01] MEDS ORDERED: HYDROCORTISONE 100 MG/2 ML VIAL (J1720 PER 1) IV ONE (09:40)
[2022-05-01] MEDS ORDERED: HYDROCORTISONE 100 MG/2 ML VIAL (J1720 PER 1) As Ordered ONE (09:43)
[2022-05-01] MEDS ORDERED: fentaNYL 100 MCG/2 ML INJECTION As Ordered ONE ×3 (09:43→12:03)
[2022-05-01] MEDS ORDERED: diphenhydrAMINE 50MG/ML VIAL As Ordered ONE (09:43)
[2022-05-01] MEDS ORDERED: MIDAZOLAM INJ 2MG/2ML VIAL (J2250 PER 1MG) As Ordered ONE (09:44)
[2022-05-01] MEDS ORDERED: ISOVUE-300 61% 50ML VIAL As Ordered ONE (09:44)
[2022-05-01] MEDS ORDERED: FAMOTIDINE 20MG/2ML VIAL IVP ONE (10:00)
[2022-05-01] MEDS ORDERED: ceFAZolin 2 GM/D5W 50 ML IV BAG (J0690 PER 500MG) As Ordered ONE (10:10)
[2022-05-01] MEDS ORDERED: ceFAZolin SOD 2 GM in IV 1 EA IV ONE (10:10)
[2022-05-01] MEDS ORDERED: NITROGLYCERIN IN D5W 25MG/250ML (100MCG/ML) As Ordered ONE (11:05)
[2022-05-01 14:15] VITALS: BP 151/80
[2022-05-01 14:45] VITALS: BP 155/86
[2022-05-01 15:45] VITALS: BP 152/85
[2022-05-01] MEDS ORDERED: SENNA 8.6 MG TAB (SENOKOT) PO PRN (16:35)
[2022-05-01] MEDS: HYDROmorphone 2 MG TAB PO PRN (17:24)
[2022-05-01 20:23] VITALS: BP 135/61
[2022-05-01] MEDS: METAMUCIL (PSYLLIUM) PACKET PO SCH (20:49)
[2022-05-01] MEDS: TAMSULOSIN 0.4 MG CAP PO SCH (20:50)
[2022-05-01] MEDS: EZETIMIBE 10MG TABLET (ZETIA) PO SCH (20:50)
[2022-05-01] MEDS: ATORVASTATIN 20 MG TAB PO SCH (20:50)
[2022-05-01] MEDS: AMITRIPTYLINE 25MG TABLET PO SCH (20:50)
[2022-05-01] MEDS ORDERED: LR 1,000 ML IV SCH (21:45)
[2022-05-02 06:01] VITALS: BP 122/69
[2022-05-02 07:50] LABS: BASO % 0.3 % (0.0-1.0); EOS # 0.3 10^3/uL (0.0-0.5); EOS % 3.1 % (0.0-3.0); HEMATOCRIT 31.2 % (42.0-52.0); HEMOGLOBIN 9.7 g/dl (13.5-17.5); LYMPH # 1.4 10^3/uL (1.5-5.0); LYMPH % 14.5 % (24.0-44.0); MEAN CORPUSCULAR HEMOGLOBIN 28.4 pg (27.0-33.0); MEAN CORPUSCULAR HGB CONC 31.1 g/dl (32.0-36.5); MEAN CORPUSCULAR VOLUME 91.5 fl (80.0-96.0); MONO # 0.9 10^3/uL (0.0-0.8); MONO % 9.4 % (2.0-8.0); NEUTROPHILS # 6.7 10^3/uL (1.5-8.5); NEUTROPHILS % 72.2 % (36.0-66.0); PLATELET COUNT, AUTOMATED 286 10^3/uL (150-450); RED BLOOD COUNT 3.41 10^6/uL (4.30-6.10); WHITE BLOOD COUNT 9.3 10^3/uL (4.0-10.0)
[2022-05-02 08:24] LABS: ALBUMIN 2.4 G/DL (3.2-5.2); CALCIUM LEVEL 8.1 MG/DL (8.3-10.6); CREATININE FOR GFR 2.39 MG/DL (0.70-1.30); GLOMERULAR FILTRATION RATE 28.2 (>42); PHOSPHORUS LEVEL 3.6 MG/DL (2.4-5.1)
[2022-05-02] MEDS: METAMUCIL (PSYLLIUM) PACKET PO SCH ×2 (08:57→21:25)
[2022-05-02] MEDS: MIRALAX *UNIT DOSE* 17GM PACKET PO SCH ×2 (08:57→21:25)
[2022-05-02] MEDS: LEVEMIR (INSULIN DETEMIR) 1 UNITS/0.01ML SC SCH (09:01)
[2022-05-02] MEDS: INSULIN LISPRO (NovoLOG) PER UNIT SC SCH ×4 (09:02→20:58)
[2022-05-02] MEDS: FOLIC ACID 1MG TAB PO SCH (09:05)
[2022-05-02] MEDS: PANTOPRAZOLE 40MG TAB (PROTONIX) PO SCH (09:06)
[2022-05-02] MEDS: CLOPIDOGREL 75 MG TAB PO SCH (09:06)
[2022-05-02] MEDS: LACTOBACILLUS ACIDOPHILUS CAP (BACID) PO SCH ×2 (09:06→17:10)
[2022-05-02] MEDS: traMADol 50 MG TAB PO SCH ×2 (09:06→22:37)
[2022-05-02] MEDS: ESCITALOPRAM OXALATE 5MG TABLET (LEXAPRO) PO SCH (09:06)
[2022-05-02] MEDS: DOCUSATE SODIUM 100MG CAPSULE PO SCH ×2 (09:06→21:25)
[2022-05-02] MEDS: NYSTATIN 100,000 UNITS/GM TOPICAL PWD 15 GM TOP SCH ×2 (09:07→21:25)
[2022-05-02] MEDS: GABAPENTIN 300 MG CAP PO SCH ×2 (09:07→21:25)
[2022-05-02] MEDS: allopurinoL 100 MG TAB PO SCH (09:07)
[2022-05-02] MEDS: CARVedilol 3.125 MG TAB PO SCH ×2 (09:07→21:24)
[2022-05-02] MEDS: HYDROmorphone 2 MG TAB PO PRN ×2 (12:33→21:24)
[2022-05-02] MEDS: TORSEMIDE 20 MG TAB PO SCH (13:00)
[2022-05-02 14:00] VITALS: BP 124/66
[2022-05-02] MEDS ORDERED: DARBEPOETIN 100 MCG/0.5 ML *NON-DIALYSIS* SYRINGE (J0881) SC ONE (15:00)
[2022-05-02 20:21] VITALS: BP 134/73
[2022-05-02] MEDS: EZETIMIBE 10MG TABLET (ZETIA) PO SCH (21:24)
[2022-05-02] MEDS: TAMSULOSIN 0.4 MG CAP PO SCH (21:24)
[2022-05-02] MEDS: AMITRIPTYLINE 25MG TABLET PO SCH (21:24)
[2022-05-02] MEDS: ATORVASTATIN 20 MG TAB PO SCH (21:24)
[2022-05-03 06:26] VITALS: BP 141/68
[2022-05-03 06:52] LABS: BASO % 0.4 % (0.0-1.0); EOS # 0.9 10^3/uL (0.0-0.5); EOS % 8.6 % (0.0-3.0); HEMATOCRIT 30.8 % (42.0-52.0); HEMOGLOBIN 9.6 g/dl (13.5-17.5); LYMPH # 1.1 10^3/uL (1.5-5.0); LYMPH % 10.3 % (24.0-44.0); MEAN CORPUSCULAR HEMOGLOBIN 28.9 pg (27.0-33.0); MEAN CORPUSCULAR HGB CONC 31.2 g/dl (32.0-36.5); MEAN CORPUSCULAR VOLUME 92.8 fl (80.0-96.0); MONO # 0.9 10^3/uL (0.0-0.8); MONO % 8.4 % (2.0-8.0); NEUTROPHILS # 7.7 10^3/uL (1.5-8.5); NEUTROPHILS % 71.9 % (36.0-66.0); PLATELET COUNT, AUTOMATED 275 10^3/uL (150-450); RED BLOOD COUNT 3.32 10^6/uL (4.30-6.10); WHITE BLOOD COUNT 10.6 10^3/uL (4.0-10.0)
[2022-05-03 07:17] LABS: ALBUMIN 2.3 G/DL (3.2-5.2); CALCIUM LEVEL 8.2 MG/DL (8.3-10.6); CREATININE FOR GFR 2.31 MG/DL (0.70-1.30); GLOMERULAR FILTRATION RATE 29.4 (>42); PHOSPHORUS LEVEL 3.9 MG/DL (2.4-5.1); POTASSIUM SERUM 4.1 MMOL/L (3.5-5.1)
[2022-05-03] MEDS: DOCUSATE SODIUM 100MG CAPSULE PO SCH ×2 (07:51→20:55)
[2022-05-03] MEDS: LACTOBACILLUS ACIDOPHILUS CAP (BACID) PO SCH ×2 (07:51→17:43)
[2022-05-03] MEDS: FOLIC ACID 1MG TAB PO SCH (07:51)
[2022-05-03] MEDS: CARVedilol 3.125 MG TAB PO SCH ×2 (07:52→20:22)
[2022-05-03] MEDS: PANTOPRAZOLE 40MG TAB (PROTONIX) PO SCH (07:52)
[2022-05-03] MEDS: ESCITALOPRAM OXALATE 5MG TABLET (LEXAPRO) PO SCH (07:52)
[2022-05-03] MEDS: MIRALAX *UNIT DOSE* 17GM PACKET PO SCH ×2 (07:52→20:54)
[2022-05-03] MEDS: METAMUCIL (PSYLLIUM) PACKET PO SCH ×2 (07:52→20:54)
[2022-05-03] MEDS: CLOPIDOGREL 75 MG TAB PO SCH (07:53)
[2022-05-03] MEDS: TORSEMIDE 20 MG TAB PO SCH (07:53)
[2022-05-03] MEDS: GABAPENTIN 300 MG CAP PO SCH ×2 (07:53→20:55)
[2022-05-03] MEDS: INSULIN LISPRO (NovoLOG) PER UNIT SC SCH ×4 (07:54→20:23)
[2022-05-03] MEDS: traMADol 50 MG TAB PO SCH ×2 (07:55→20:55)
[2022-05-03] MEDS: allopurinoL 100 MG TAB PO SCH (07:55)
[2022-05-03] MEDS: LEVEMIR (INSULIN DETEMIR) 1 UNITS/0.01ML SC SCH (07:55)
[2022-05-03] MEDS: HYDROmorphone 2 MG TAB PO PRN ×2 (08:04→17:44)
[2022-05-03] MEDS: NYSTATIN 100,000 UNITS/GM TOPICAL PWD 15 GM TOP SCH ×2 (08:05→20:55)
[2022-05-03] MEDS ORDERED: LEVEMIR (INSULIN DETEMIR) 1 UNITS/0.01ML SC ONE (10:00)
[2022-05-03] MEDS: APIXABAN 2.5 MG TAB (ELIQUIS) PO SCH ×2 (10:36→20:55)
[2022-05-03] MEDS: oxyCODONE 5MG TAB PO PRN (10:37)
[2022-05-03 14:37] VITALS: BP 133/65
[2022-05-03] MEDS: EZETIMIBE 10MG TABLET (ZETIA) PO SCH (20:54)
[2022-05-03] MEDS: AMITRIPTYLINE 25MG TABLET PO SCH (20:55)
[2022-05-03] MEDS: TAMSULOSIN 0.4 MG CAP PO SCH (20:55)
[2022-05-03] MEDS: ATORVASTATIN 20 MG TAB PO SCH (20:55)
[2022-05-03 22:00] VITALS: BP 130/63
[2022-05-04 06:00] VITALS: BP 126/65
[2022-05-04 06:59] LABS: BASO % 0.2 % (0.0-1.0); EOS # 1.2 10^3/uL (0.0-0.5); EOS % 11.8 % (0.0-3.0); HEMATOCRIT 30.1 % (42.0-52.0); HEMOGLOBIN 9.5 g/dl (13.5-17.5); LYMPH # 1.2 10^3/uL (1.5-5.0); LYMPH % 12.4 % (24.0-44.0); MEAN CORPUSCULAR HEMOGLOBIN 29.2 pg (27.0-33.0); MEAN CORPUSCULAR HGB CONC 31.6 g/dl (32.0-36.5); MEAN CORPUSCULAR VOLUME 92.6 fl (80.0-96.0); MONO % 10.1 % (2.0-8.0); NEUTROPHILS # 6.5 10^3/uL (1.5-8.5); PLATELET COUNT, AUTOMATED 262 10^3/uL (150-450); RED BLOOD COUNT 3.25 10^6/uL (4.30-6.10)
[2022-05-04] MEDS: HYDROmorphone 2 MG TAB PO PRN ×2 (07:26→15:51)
[2022-05-04 07:41] LABS: ALBUMIN 2.4 G/DL (3.2-5.2); CALCIUM LEVEL 8.3 MG/DL (8.3-10.6); CREATININE FOR GFR 2.24 MG/DL (0.70-1.30); GLOMERULAR FILTRATION RATE 30.4 (>42); PHOSPHORUS LEVEL 3.8 MG/DL (2.4-5.1); POTASSIUM SERUM 4.1 MMOL/L (3.5-5.1)
[2022-05-04] MEDS: ESCITALOPRAM OXALATE 5MG TABLET (LEXAPRO) PO SCH (08:25)
[2022-05-04] MEDS: FOLIC ACID 1MG TAB PO SCH (08:25)
[2022-05-04] MEDS: LACTOBACILLUS ACIDOPHILUS CAP (BACID) PO SCH ×2 (08:25→17:33)
[2022-05-04] MEDS: DOCUSATE SODIUM 100MG CAPSULE PO SCH ×2 (08:25→20:56)
[2022-05-04] MEDS: CARVedilol 3.125 MG TAB PO SCH ×2 (08:26→20:56)
[2022-05-04] MEDS: allopurinoL 100 MG TAB PO SCH (08:26)
[2022-05-04] MEDS: PANTOPRAZOLE 40MG TAB (PROTONIX) PO SCH (08:26)
[2022-05-04] MEDS: GABAPENTIN 300 MG CAP PO SCH ×2 (08:26→20:35)
[2022-05-04] MEDS: TORSEMIDE 20 MG TAB PO SCH (08:26)
[2022-05-04] MEDS: LEVEMIR (INSULIN DETEMIR) 1 UNITS/0.01ML SC SCH (08:27)
[2022-05-04] MEDS: APIXABAN 2.5 MG TAB (ELIQUIS) PO SCH ×2 (08:28→20:36)
[2022-05-04] MEDS: INSULIN LISPRO (NovoLOG) PER UNIT SC SCH ×4 (08:28→20:18)
[2022-05-04] MEDS: CLOPIDOGREL 75 MG TAB PO SCH (08:29)
[2022-05-04] MEDS: MIRALAX *UNIT DOSE* 17GM PACKET PO SCH ×2 (08:29→20:57)
[2022-05-04] MEDS: METAMUCIL (PSYLLIUM) PACKET PO SCH ×2 (08:29→20:57)
[2022-05-04] MEDS: NYSTATIN 100,000 UNITS/GM TOPICAL PWD 15 GM TOP SCH ×2 (08:30→20:37)
[2022-05-04] MEDS: traMADol 50 MG TAB PO SCH ×2 (08:30→20:36)
[2022-05-04] MEDS: oxyCODONE 5MG TAB PO PRN ×2 (09:56→17:33)
[2022-05-04 14:00] VITALS: BP 123/61
[2022-05-04] MEDS: ATORVASTATIN 20 MG TAB PO SCH (20:35)
[2022-05-04] MEDS: AMITRIPTYLINE 25MG TABLET PO SCH (20:35)
[2022-05-04] MEDS: TAMSULOSIN 0.4 MG CAP PO SCH (20:35)
[2022-05-04] MEDS: EZETIMIBE 10MG TABLET (ZETIA) PO SCH (20:36)
[2022-05-04 21:53] VITALS: BP 110/53
[2022-05-05] MEDS: HYDROmorphone 2 MG TAB PO PRN ×2 (05:44→19:36)
[2022-05-05 06:00] VITALS: BP 124/65
[2022-05-05 06:42] LABS: BASO % 0.3 % (0.0-1.0); EOS # 1.1 10^3/uL (0.0-0.5); EOS % 11.8 % (0.0-3.0); HEMATOCRIT 31.3 % (42.0-52.0); HEMOGLOBIN 9.7 g/dl (13.5-17.5); MEAN CORPUSCULAR VOLUME 93.4 fl (80.0-96.0); MONO # 0.8 10^3/uL (0.0-0.8); MONO % 9.1 % (2.0-8.0); NEUTROPHILS # 6.2 10^3/uL (1.5-8.5); NEUTROPHILS % 67.5 % (36.0-66.0); PLATELET COUNT, AUTOMATED 264 10^3/uL (150-450); RED BLOOD COUNT 3.35 10^6/uL (4.30-6.10); WHITE BLOOD COUNT 9.2 10^3/uL (4.0-10.0)
[2022-05-05 07:09] LABS: ALBUMIN 2.3 G/DL (3.2-5.2); CALCIUM LEVEL 8.4 MG/DL (8.3-10.6); CREATININE FOR GFR 2.19 MG/DL (0.70-1.30); GLOMERULAR FILTRATION RATE 31.2 (>42); PHOSPHORUS LEVEL 3.9 MG/DL (2.4-5.1)
[2022-05-05] MEDS: LEVEMIR (INSULIN DETEMIR) 1 UNITS/0.01ML SC SCH ×2 (08:35→08:50)
[2022-05-05] MEDS: INSULIN LISPRO (NovoLOG) PER UNIT SC SCH ×4 (08:35→19:41)
[2022-05-05] MEDS: ESCITALOPRAM OXALATE 5MG TABLET (LEXAPRO) PO SCH (08:36)
[2022-05-05] MEDS: DOCUSATE SODIUM 100MG CAPSULE PO SCH ×2 (08:36→19:12)
[2022-05-05] MEDS: GABAPENTIN 300 MG CAP PO SCH ×2 (08:36→20:29)
[2022-05-05] MEDS: traMADol 50 MG TAB PO SCH ×2 (08:37→20:32)
[2022-05-05] MEDS: LACTOBACILLUS ACIDOPHILUS CAP (BACID) PO SCH ×2 (08:38→17:49)
[2022-05-05] MEDS: APIXABAN 2.5 MG TAB (ELIQUIS) PO SCH ×2 (08:38→20:29)
[2022-05-05] MEDS: TORSEMIDE 20 MG TAB PO SCH (08:38)
[2022-05-05] MEDS: FOLIC ACID 1MG TAB PO SCH (08:38)
[2022-05-05] MEDS: CLOPIDOGREL 75 MG TAB PO SCH (08:39)
[2022-05-05] MEDS: CARVedilol 3.125 MG TAB PO SCH ×2 (08:40→19:43)
[2022-05-05] MEDS: allopurinoL 100 MG TAB PO SCH (08:40)
[2022-05-05] MEDS: PANTOPRAZOLE 40MG TAB (PROTONIX) PO SCH (08:41)
[2022-05-05] MEDS: MIRALAX *UNIT DOSE* 17GM PACKET PO SCH ×2 (08:50→19:11)
[2022-05-05] MEDS: METAMUCIL (PSYLLIUM) PACKET PO SCH ×2 (08:50→19:12)
[2022-05-05] MEDS: NYSTATIN 100,000 UNITS/GM TOPICAL PWD 15 GM TOP SCH ×2 (08:51→20:36)
[2022-05-05 14:00] VITALS: BP 122/68
[2022-05-05] MEDS: AMITRIPTYLINE 25MG TABLET PO SCH (20:29)
[2022-05-05] MEDS: ATORVASTATIN 20 MG TAB PO SCH (20:29)
[2022-05-05] MEDS: EZETIMIBE 10MG TABLET (ZETIA) PO SCH (20:29)
[2022-05-05] MEDS: TAMSULOSIN 0.4 MG CAP PO SCH (20:29)
[2022-05-05 21:37] VITALS: BP 122/65
[2022-05-06 06:00] VITALS: BP 120/63
[2022-05-06 06:56] LABS: BASO % 0.2 % (0.0-1.0); EOS # 1.1 10^3/uL (0.0-0.5); EOS % 13.5 % (0.0-3.0); HEMATOCRIT 29.1 % (42.0-52.0); HEMOGLOBIN 9.4 g/dl (13.5-17.5); LYMPH % 11.4 % (24.0-44.0); MEAN CORPUSCULAR HGB CONC 32.3 g/dl (32.0-36.5); MONO # 0.8 10^3/uL (0.0-0.8); MONO % 9.1 % (2.0-8.0); NEUTROPHILS # 5.5 10^3/uL (1.5-8.5); NEUTROPHILS % 65.3 % (36.0-66.0); PLATELET COUNT, AUTOMATED 239 10^3/uL (150-450); RED BLOOD COUNT 3.13 10^6/uL (4.30-6.10); WHITE BLOOD COUNT 8.4 10^3/uL (4.0-10.0)
[2022-05-06 07:22] LABS: ALBUMIN 2.2 G/DL (3.2-5.2); CALCIUM LEVEL 8.2 MG/DL (8.3-10.6); CREATININE FOR GFR 2.04 MG/DL (0.70-1.30); GLOMERULAR FILTRATION RATE 33.9 (>42); PHOSPHORUS LEVEL 3.7 MG/DL (2.4-5.1); POTASSIUM SERUM 3.8 MMOL/L (3.5-5.1)
[2022-05-06] MEDS: INSULIN LISPRO (NovoLOG) PER UNIT SC SCH ×4 (07:48→20:17)
[2022-05-06] MEDS: LEVEMIR (INSULIN DETEMIR) 1 UNITS/0.01ML SC SCH (07:48)
[2022-05-06] MEDS: ESCITALOPRAM OXALATE 5MG TABLET (LEXAPRO) PO SCH (07:48)
[2022-05-06] MEDS: traMADol 50 MG TAB PO SCH ×2 (07:49→20:15)
[2022-05-06] MEDS: APIXABAN 2.5 MG TAB (ELIQUIS) PO SCH (07:49)
[2022-05-06] MEDS: TORSEMIDE 20 MG TAB PO SCH (07:50)
[2022-05-06] MEDS: allopurinoL 100 MG TAB PO SCH (07:50)
[2022-05-06] MEDS: CLOPIDOGREL 75 MG TAB PO SCH (07:50)
[2022-05-06] MEDS: GABAPENTIN 300 MG CAP PO SCH ×2 (07:50→20:15)
[2022-05-06] MEDS: DOCUSATE SODIUM 100MG CAPSULE PO SCH ×2 (07:50→20:13)
[2022-05-06] MEDS: LACTOBACILLUS ACIDOPHILUS CAP (BACID) PO SCH ×2 (07:50→18:11)
[2022-05-06] MEDS: PANTOPRAZOLE 40MG TAB (PROTONIX) PO SCH (07:50)
[2022-05-06] MEDS: FOLIC ACID 1MG TAB PO SCH (07:50)
[2022-05-06] MEDS: CARVedilol 3.125 MG TAB PO SCH ×2 (07:51→20:16)
[2022-05-06] MEDS: MIRALAX *UNIT DOSE* 17GM PACKET PO SCH ×2 (07:51→20:16)
[2022-05-06] MEDS: METAMUCIL (PSYLLIUM) PACKET PO SCH ×3 (07:51→20:20)
[2022-05-06] MEDS: NYSTATIN 100,000 UNITS/GM TOPICAL PWD 15 GM TOP SCH ×2 (07:52→20:18)
[2022-05-06] MEDS ORDERED: META1POW PO (09:47)
[2022-05-06] MEDS ORDERED: INSUDET SC (09:47)
[2022-05-06] MEDS ORDERED: TORS20TA2 PO (09:47)
[2022-05-06] MEDS ORDERED: AMIT25TA17 PO (09:47)
[2022-05-06 14:00] VITALS: BP 116/62
[2022-05-06] MEDS: HYDROmorphone 2 MG TAB PO PRN (18:14)
[2022-05-06 20:00] VITALS: BP 121/63
[2022-05-06] MEDS: EZETIMIBE 10MG TABLET (ZETIA) PO SCH (20:13)
[2022-05-06] MEDS: TAMSULOSIN 0.4 MG CAP PO SCH (20:15)
[2022-05-06] MEDS: ATORVASTATIN 20 MG TAB PO SCH (20:15)
[2022-05-06] MEDS: AMITRIPTYLINE 25MG TABLET PO SCH (20:15)
[2022-05-06 20:16] VITALS: BP 121/63
[2022-05-07] MEDS ORDERED: AMIT25TA17 PO (00:39)
[2022-05-07] MEDS ORDERED: CARV3.12 PO (00:39)
[2022-05-07] MEDS ORDERED: HYDR2TAB2 PO (00:47)
[2022-05-07] MEDS ORDERED: META1POW PO (01:03)
[2022-05-07] MEDS ORDERED: SENN8.6T28 PO (01:03)
[2022-05-07] MEDS ORDERED: MIRA1POW3 PO (01:03)
[2022-05-07] MEDS ORDERED: INSUDET SC (01:03)
[2022-05-07] MEDS ORDERED: TORS20TA2 PO (01:03)
[2022-05-07] MEDS ORDERED: ROZE8TAB16 PO (01:03)
== END 2022-05-06 22:25 | DRG 239 ==
LOC: M MS5PR 17:43 → M PCU 04-09 08:27 → M MS5PR 04-21 17:42 → M PCU 04-22 18:56 → M MS5PR 04-25 01:13
PROVIDERS: ADMIT Internal Medicine; ATTEND Student in an Organized Health Care Education/Training Program
PROC: 0Y6R0Z0 Detachment at Right 2nd Toe, Complete, Open Approach (ICD-10-PCS; 2022-03-30)
PROC: 0Y6V0Z0 Detachment at Right 4th Toe, Complete, Open Approach (ICD-10-PCS; 2022-03-30)
PROC: 0Y6X0Z0 Detachment at Right 5th Toe, Complete, Open Approach (ICD-10-PCS; 2022-03-30)
PROC: 0LBV0ZZ Excision of Right Foot Tendon, Open Approach (ICD-10-PCS; 2022-03-30)
PROC: 30233N1 Transfusion of Nonautologous Red Blood Cells into Peripheral Vein, Percutaneous Approach (ICD-10-PCS; 2022-04-01)
PROC: B246ZZZ Ultrasonography of Right and Left Heart (ICD-10-PCS; 2022-04-03)
PROC: 0JH63XZ Insertion of Tunneled Vascular Access Device into Chest Subcutaneous Tissue and Fascia, Percutaneous Approach (ICD-10-PCS; 2022-04-09)
PROC: 0Y6H0Z1 Detachment at Right Lower Leg, High, Open Approach (ICD-10-PCS; principal; 2022-04-11 10:45)
PROC: 30233J1 Transfusion of Nonautologous Serum Albumin into Peripheral Vein, Percutaneous Approach (ICD-10-PCS; 2022-04-22)
PROC: 0Y6C0Z3 Detachment at Right Upper Leg, Low, Open Approach (ICD-10-PCS; 2022-04-26)
PROC: 047L3DZ Dilation of Left Femoral Artery with Intraluminal Device, Percutaneous Approach (ICD-10-PCS; 2022-05-01)
DX: E11.52 Type 2 diabetes mellitus with diabetic peripheral angiopathy with gangrene (principal); L89.623 Pressure ulcer of left heel, stage 3; L89.613 Pressure ulcer of right heel, stage 3; I50.23 Acute on chronic systolic (congestive) heart failure; G93.41 Metabolic encephalopathy; J69.0 Pneumonitis due to inhalation of food and vomit; N18.6 End stage renal disease; I13.2 Hypertensive heart and chronic kidney disease with heart failure and with stage 5 chronic kidney disease, or end stage renal disease; N17.9 Acute kidney failure, unspecified; K56.7 Ileus, unspecified; E87.20 Acidosis, unspecified; D62 Acute posthemorrhagic anemia; I48.20 Chronic atrial fibrillation, unspecified; E87.1 Hypo-osmolality and hyponatremia; E46 Unspecified protein-calorie malnutrition; I96 Gangrene, not elsewhere classified; I25.5 Ischemic cardiomyopathy; I25.10 Atherosclerotic heart disease of native coronary artery without angina pectoris; M10.9 Gout, unspecified; E11.22 Type 2 diabetes mellitus with diabetic chronic kidney disease; E78.5 Hyperlipidemia, unspecified; D63.8 Anemia in other chronic diseases classified elsewhere; D50.9 Iron deficiency anemia, unspecified; I35.0 Nonrheumatic aortic (valve) stenosis; Z95.5 Presence of coronary angioplasty implant and graft; Z89.421 Acquired absence of other right toe(s); Z89.422 Acquired absence of other left toe(s); E11.621 Type 2 diabetes mellitus with foot ulcer; E11.42 Type 2 diabetes mellitus with diabetic polyneuropathy; Z90.5 Acquired absence of kidney; Z85.46 Personal history of malignant neoplasm of prostate; G47.33 Obstructive sleep apnea (adult) (pediatric); Z90.79 Acquired absence of other genital organ(s); Z87.891 Personal history of nicotine dependence; Z20.822 Contact with and (suspected) exposure to COVID-19; Z79.01 Long term (current) use of anticoagulants; Z79.2 Long term (current) use of antibiotics; Z79.4 Long term (current) use of insulin; Z79.899 Other long term (current) drug therapy; Z91.013 Allergy to seafood

== ENCOUNTER 2022-05-06 10:25 | Inpatient (IN) | payer MEDICARE, BC ==
[~2022-05-06] VITALS: Ht 182.9 cm; Wt 92.2 kg
[~2022-05-06 10:25] MED LIST changes: +AMIT25TA17 PO; +DILA4TAB13 PO; +DOXY100T PO; +HYDR0.5S8 IV; +INSUDET SC; +LINE1TAB6 PO; +MAGN400T33 PO; +META1POW PO; +MIRA1POW3 PO; +RAME8TAB2 PO; +SENN18TA PO
[2022-05-06] MEDS ORDERED: GLUCOSE 4GM CHEW TABLET PO PRN (14:05)
[2022-05-06] MEDS ORDERED: NALOXONE INJ 0.4MG/1ML VIAL IV PRN (14:05)
[2022-05-06] MEDS ORDERED: ONDANSETRON 4MG TAB PO PRN (14:05)
[2022-05-06] MEDS ORDERED: GLUCAGON INJ 1MG VIAL SC PRN (14:05)
[2022-05-06] MEDS ORDERED: DEXTROSE 50% 50ML SYRINGE IV PRN (14:05)
[2022-05-06 22:35] VITALS: BP 144/68
[2022-05-07] MEDS ORDERED: CARV3.12 PO (00:39)
[2022-05-07] MEDS ORDERED: AMIT25TA17 PO (00:39)
[2022-05-07] MEDS ORDERED: HYDR2TAB2 PO (00:47)
[2022-05-07] MEDS ORDERED: SENN8.6T28 PO (01:03)
[2022-05-07] MEDS ORDERED: INSUDET SC (01:03)
[2022-05-07] MEDS ORDERED: ROZE8TAB16 PO (01:03)
[2022-05-07] MEDS ORDERED: META1POW PO (01:03)
[2022-05-07] MEDS ORDERED: MIRA1POW3 PO (01:03)
[2022-05-07] MEDS ORDERED: TORS20TA2 PO (01:03)
[2022-05-07] MEDS ORDERED: HOME MED LIST COMPLETE! XX SCH (01:05)
[2022-05-07] MEDS ORDERED: HYDROmorphone 2 MG TAB PO PRN (02:00)
[2022-05-07 05:44] LABS: BASO % 0.3 % (0.0-1.0); EOS # 1.2 10^3/uL (0.0-0.5); EOS % 12.7 % (0.0-3.0); HEMATOCRIT 29.8 % (42.0-52.0); HEMOGLOBIN 9.5 g/dl (13.5-17.5); LYMPH # 1.1 10^3/uL (1.5-5.0); LYMPH % 11.5 % (24.0-44.0); MEAN CORPUSCULAR HEMOGLOBIN 29.3 pg (27.0-33.0); MEAN CORPUSCULAR HGB CONC 31.9 g/dl (32.0-36.5); MONO # 0.8 10^3/uL (0.0-0.8); MONO % 8.3 % (2.0-8.0); NEUTROPHILS # 6.5 10^3/uL (1.5-8.5); NEUTROPHILS % 66.7 % (36.0-66.0); PLATELET COUNT, AUTOMATED 240 10^3/uL (150-450); RED BLOOD COUNT 3.24 10^6/uL (4.30-6.10); WHITE BLOOD COUNT 9.7 10^3/uL (4.0-10.0)
[2022-05-07 06:05] LABS: POTASSIUM SERUM 3.8 MMOL/L (3.5-5.1)
[2022-05-07 06:06] LABS: ALBUMIN 2.3 G/DL (3.2-5.2)
[2022-05-07 06:11] LABS: CALCIUM LEVEL 8.3 MG/DL (8.3-10.6)
[2022-05-07 06:13] LABS: BILIRUBIN,TOTAL 0.7 MG/DL (0.3-1.2); CREATININE FOR GFR 2.01 MG/DL (0.70-1.30); GLOMERULAR FILTRATION RATE 34.5 (>42); TOTAL PROTEIN 5.5 G/DL (5.7-8.2)
[2022-05-07 06:15] VITALS: BP 148/71
[2022-05-07] MEDS: FOLIC ACID 1MG TAB PO SCH (08:25)
[2022-05-07] MEDS: LACTOBACILLUS ACIDOPHILUS CAP (BACID) PO SCH ×2 (08:25→17:00)
[2022-05-07] MEDS: LEVEMIR (INSULIN DETEMIR) 1 UNITS/0.01ML SC SCH (08:25)
[2022-05-07] MEDS: DOCUSATE SODIUM 100MG CAPSULE PO SCH ×2 (08:25→20:33)
[2022-05-07] MEDS: INSULIN LISPRO (NovoLOG) PER UNIT SC SCH ×4 (08:25→20:34)
[2022-05-07] MEDS: TORSEMIDE 20 MG TAB PO SCH (08:25)
[2022-05-07] MEDS: ESCITALOPRAM OXALATE 5MG TABLET (LEXAPRO) PO SCH (08:26)
[2022-05-07] MEDS: GABAPENTIN 300 MG CAP PO SCH ×2 (08:26→20:33)
[2022-05-07] MEDS: PANTOPRAZOLE 40MG TAB (PROTONIX) PO SCH (08:26)
[2022-05-07] MEDS: allopurinoL 100 MG TAB PO SCH (08:26)
[2022-05-07] MEDS: CARVedilol 3.125 MG TAB PO SCH ×2 (08:26→20:33)
[2022-05-07] MEDS: ACETAMINOPHEN 325 MG TAB PO SCH ×3 (08:26→20:34)
[2022-05-07] MEDS: NYSTATIN 100,000 UNITS/GM TOPICAL PWD 15GM TOP SCH ×2 (08:27→20:25)
[2022-05-07] MEDS: TAMSULOSIN 0.4 MG CAP PO SCH (08:28)
[2022-05-07] MEDS: MIRALAX *UNIT DOSE* 17GM PACKET PO SCH ×2 (08:28→20:25)
[2022-05-07] MEDS: REMEDY PHYTOPLEX Z-GUARD PASTE 113GM TUBE (FROM STOREROOM PRODUCT) TOP SCH ×4 (08:29→20:37)
[2022-05-07] MEDS: COMBIVENT RESPIMAT 100-20MCG INHALER 4GM INH SCH ×3 (08:37→20:59)
[2022-05-07] MEDS ORDERED: oxyCODONE 5MG TAB PO PRN (09:00)
[2022-05-07] MEDS: CLOPIDOGREL 75 MG TAB PO SCH ×2 (09:00→12:40)
[2022-05-07] MEDS ORDERED: LIDOCAINE 1% MDV 20ML VIAL As Ordered ONE (09:36)
[2022-05-07] MEDS ORDERED: LIDOCAINE W/EPINEPHRINE 1% 20ML VIAL As Ordered ONE (09:36)
[2022-05-07 11:57] VITALS: BP 107/54
[2022-05-07 13:14] LABS: INR 1.34; PROTHROMBIN TIME 16.8 SECONDS (12.5-14.5)
[2022-05-07 13:15] LABS: PARTIAL THROMBOPLASTIN TIME 37.8 SECONDS (24.8-34.2)
[2022-05-07 14:00] VITALS: BP 102/61
[2022-05-07 20:00] VITALS: BP 118/65
[2022-05-07] MEDS: SENNA 8.6 MG TAB (SENOKOT) PO SCH (20:24)
[2022-05-07] MEDS: AMITRIPTYLINE 25MG TABLET PO SCH (20:33)
[2022-05-07] MEDS: ATORVASTATIN 20 MG TAB PO SCH (20:33)
[2022-05-07] MEDS: EZETIMIBE 10MG TABLET (ZETIA) PO SCH (20:33)
[2022-05-07] MEDS ORDERED: APIXABAN 2.5 MG TAB (ELIQUIS) PO SCH (21:00)
[2022-05-08 06:00] VITALS: BP 150/70
[2022-05-08 06:33] LABS: BASO % 0.3 % (0.0-1.0); EOS # 1.2 10^3/uL (0.0-0.5); EOS % 12.7 % (0.0-3.0); HEMATOCRIT 30.1 % (42.0-52.0); HEMOGLOBIN 9.5 g/dl (13.5-17.5); LYMPH % 10.8 % (24.0-44.0); MEAN CORPUSCULAR HGB CONC 31.6 g/dl (32.0-36.5); MEAN CORPUSCULAR VOLUME 91.8 fl (80.0-96.0); MONO # 0.8 10^3/uL (0.0-0.8); MONO % 8.1 % (2.0-8.0); NEUTROPHILS # 6.3 10^3/uL (1.5-8.5); NEUTROPHILS % 67.7 % (36.0-66.0); PLATELET COUNT, AUTOMATED 236 10^3/uL (150-450); RED BLOOD COUNT 3.28 10^6/uL (4.30-6.10); WHITE BLOOD COUNT 9.4 10^3/uL (4.0-10.0)
[2022-05-08 07:09] LABS: CALCIUM LEVEL 8.3 MG/DL (8.3-10.6)
[2022-05-08 07:12] LABS: CREATININE FOR GFR 2.18 MG/DL (0.70-1.30); GLOMERULAR FILTRATION RATE 31.4 (>42)
[2022-05-08 07:16] LABS: POTASSIUM SERUM 3.9 MMOL/L (3.5-5.1)
[2022-05-08] MEDS: COMBIVENT RESPIMAT 100-20MCG INHALER 4GM INH SCH ×3 (08:00→20:22)
[2022-05-08] MEDS: NYSTATIN 100,000 UNITS/GM TOPICAL PWD 15GM TOP SCH ×3 (09:00→21:00)
[2022-05-08] MEDS: MIRALAX *UNIT DOSE* 17GM PACKET PO SCH ×2 (09:00→21:00)
[2022-05-08] MEDS: PANTOPRAZOLE 40MG TAB (PROTONIX) PO SCH (10:09)
[2022-05-08] MEDS: INSULIN LISPRO (NovoLOG) PER UNIT SC SCH ×4 (10:09→21:00)
[2022-05-08] MEDS: LEVEMIR (INSULIN DETEMIR) 1 UNITS/0.01ML SC SCH (10:09)
[2022-05-08] MEDS: CLOPIDOGREL 75 MG TAB PO SCH (10:09)
[2022-05-08] MEDS: FOLIC ACID 1MG TAB PO SCH (10:09)
[2022-05-08] MEDS: TAMSULOSIN 0.4 MG CAP PO SCH (10:10)
[2022-05-08] MEDS: DOCUSATE SODIUM 100MG CAPSULE PO SCH ×2 (10:10→21:00)
[2022-05-08] MEDS: TORSEMIDE 20 MG TAB PO SCH (10:10)
[2022-05-08] MEDS: ACETAMINOPHEN 325 MG TAB PO SCH ×3 (10:10→21:16)
[2022-05-08] MEDS: APIXABAN 2.5 MG TAB (ELIQUIS) PO SCH ×2 (10:11→21:15)
[2022-05-08] MEDS: GABAPENTIN 300 MG CAP PO SCH ×2 (10:11→21:15)
[2022-05-08] MEDS: allopurinoL 100 MG TAB PO SCH (10:11)
[2022-05-08] MEDS: ESCITALOPRAM OXALATE 5MG TABLET (LEXAPRO) PO SCH (10:11)
[2022-05-08] MEDS: LACTOBACILLUS ACIDOPHILUS CAP (BACID) PO SCH ×2 (10:11→17:09)
[2022-05-08] MEDS: CARVedilol 3.125 MG TAB PO SCH ×2 (10:11→21:17)
[2022-05-08] MEDS: REMEDY PHYTOPLEX Z-GUARD PASTE 113GM TUBE (FROM STOREROOM PRODUCT) TOP SCH ×4 (10:13→21:20)
[2022-05-08 14:00] VITALS: BP 136/77
[2022-05-08 18:00] VITALS: BP 111/55
[2022-05-08] MEDS: SENNA 8.6 MG TAB (SENOKOT) PO SCH (21:00)
[2022-05-08] MEDS: AMITRIPTYLINE 25MG TABLET PO SCH (21:15)
[2022-05-08] MEDS: ATORVASTATIN 20 MG TAB PO SCH (21:15)
[2022-05-08] MEDS: EZETIMIBE 10MG TABLET (ZETIA) PO SCH (21:16)
[2022-05-08] MEDS: SUCRALFATE 1 GM TAB PO SCH (21:17)
[2022-05-09 05:27] VITALS: BP 137/76
[2022-05-09] MEDS: COMBIVENT RESPIMAT 100-20MCG INHALER 4GM INH SCH ×3 (06:59→18:33)
[2022-05-09] MEDS: INSULIN LISPRO (NovoLOG) PER UNIT SC SCH ×4 (08:26→21:00)
[2022-05-09] MEDS: CARVedilol 3.125 MG TAB PO SCH ×2 (08:26→21:14)
[2022-05-09] MEDS: FOLIC ACID 1MG TAB PO SCH (08:28)
[2022-05-09] MEDS: allopurinoL 100 MG TAB PO SCH (08:28)
[2022-05-09] MEDS: LACTOBACILLUS ACIDOPHILUS CAP (BACID) PO SCH ×2 (08:28→17:51)
[2022-05-09] MEDS: APIXABAN 2.5 MG TAB (ELIQUIS) PO SCH ×2 (08:28→21:13)
[2022-05-09] MEDS: SUCRALFATE 1 GM TAB PO SCH ×2 (08:28→21:14)
[2022-05-09] MEDS: ESCITALOPRAM OXALATE 5MG TABLET (LEXAPRO) PO SCH (08:28)
[2022-05-09] MEDS: CLOPIDOGREL 75 MG TAB PO SCH (08:28)
[2022-05-09] MEDS: PANTOPRAZOLE 40MG TAB (PROTONIX) PO SCH (08:28)
[2022-05-09] MEDS: GABAPENTIN 300 MG CAP PO SCH ×2 (08:28→21:13)
[2022-05-09] MEDS: ACETAMINOPHEN 325 MG TAB PO SCH ×3 (08:29→21:13)
[2022-05-09] MEDS: LEVEMIR (INSULIN DETEMIR) 1 UNITS/0.01ML SC SCH (08:29)
[2022-05-09] MEDS: DOCUSATE SODIUM 100MG CAPSULE PO SCH ×2 (08:37→21:00)
[2022-05-09] MEDS: MIRALAX *UNIT DOSE* 17GM PACKET PO SCH ×2 (08:37→21:00)
[2022-05-09] MEDS ORDERED: LEVEMIR (INSULIN DETEMIR) 1 UNITS/0.01ML SC SCH (09:00)
[2022-05-09] MEDS: REMEDY PHYTOPLEX Z-GUARD PASTE 113GM TUBE (FROM STOREROOM PRODUCT) TOP SCH ×4 (09:15→21:15)
[2022-05-09] MEDS: NYSTATIN 100,000 UNITS/GM TOPICAL PWD 15GM TOP SCH ×2 (09:15→21:15)
[2022-05-09] MEDS: TORSEMIDE 20 MG TAB PO SCH (12:37)
[2022-05-09 14:00] VITALS: BP 150/74
[2022-05-09 20:00] VITALS: BP 146/80
[2022-05-09] MEDS: SENNA 8.6 MG TAB (SENOKOT) PO SCH (21:00)
[2022-05-09] MEDS: ATORVASTATIN 20 MG TAB PO SCH (21:13)
[2022-05-09] MEDS: TAMSULOSIN 0.4 MG CAP PO SCH (21:13)
[2022-05-09] MEDS: AMITRIPTYLINE 25MG TABLET PO SCH (21:13)
[2022-05-09] MEDS: EZETIMIBE 10MG TABLET (ZETIA) PO SCH (21:14)
[2022-05-10 06:35] LABS: BASO % 0.3 % (0.0-1.0); EOS # 1.1 10^3/uL (0.0-0.5); EOS % 13.8 % (0.0-3.0); HEMATOCRIT 32.5 % (42.0-52.0); LYMPH % 12.8 % (24.0-44.0); MEAN CORPUSCULAR HEMOGLOBIN 28.8 pg (27.0-33.0); MEAN CORPUSCULAR HGB CONC 30.8 g/dl (32.0-36.5); MEAN CORPUSCULAR VOLUME 93.7 fl (80.0-96.0); MONO # 0.7 10^3/uL (0.0-0.8); MONO % 8.2 % (2.0-8.0); NEUTROPHILS # 5.1 10^3/uL (1.5-8.5); NEUTROPHILS % 64.4 % (36.0-66.0); PLATELET COUNT, AUTOMATED 233 10^3/uL (150-450); RED BLOOD COUNT 3.47 10^6/uL (4.30-6.10); WHITE BLOOD COUNT 7.9 10^3/uL (4.0-10.0)
[2022-05-10 06:39] VITALS: BP 164/72
[2022-05-10 07:04] VITALS: BP 140/80
[2022-05-10] MEDS: INSULIN LISPRO (NovoLOG) PER UNIT SC SCH ×4 (08:28→20:44)
[2022-05-10] MEDS: CLOPIDOGREL 75 MG TAB PO SCH (08:29)
[2022-05-10] MEDS: LEVEMIR (INSULIN DETEMIR) 1 UNITS/0.01ML SC SCH (08:29)
[2022-05-10] MEDS: APIXABAN 2.5 MG TAB (ELIQUIS) PO SCH ×2 (08:29→20:42)
[2022-05-10] MEDS: SUCRALFATE 1 GM TAB PO SCH ×2 (08:29→20:42)
[2022-05-10] MEDS: DOCUSATE SODIUM 100MG CAPSULE PO SCH ×2 (08:29→20:42)
[2022-05-10] MEDS: GABAPENTIN 300 MG CAP PO SCH ×2 (08:29→20:42)
[2022-05-10] MEDS: FOLIC ACID 1MG TAB PO SCH (08:29)
[2022-05-10] MEDS: LACTOBACILLUS ACIDOPHILUS CAP (BACID) PO SCH ×2 (08:34→18:14)
[2022-05-10] MEDS: ESCITALOPRAM OXALATE 5MG TABLET (LEXAPRO) PO SCH (08:34)
[2022-05-10] MEDS: ACETAMINOPHEN 325 MG TAB PO SCH ×3 (08:35→20:43)
[2022-05-10] MEDS: allopurinoL 100 MG TAB PO SCH (08:35)
[2022-05-10] MEDS: PANTOPRAZOLE 40MG TAB (PROTONIX) PO SCH (08:35)
[2022-05-10] MEDS: CARVedilol 3.125 MG TAB PO SCH ×2 (08:35→20:43)
[2022-05-10] MEDS: NYSTATIN 100,000 UNITS/GM TOPICAL PWD 15GM TOP SCH ×2 (08:36→20:45)
[2022-05-10] MEDS: REMEDY PHYTOPLEX Z-GUARD PASTE 113GM TUBE (FROM STOREROOM PRODUCT) TOP SCH ×4 (08:36→20:45)
[2022-05-10] MEDS: COMBIVENT RESPIMAT 100-20MCG INHALER 4GM INH SCH ×3 (08:38→20:00)
[2022-05-10] MEDS: MIRALAX *UNIT DOSE* 17GM PACKET PO SCH ×2 (08:44→20:44)
[2022-05-10] MEDS: TORSEMIDE 20 MG TAB PO SCH (12:13)
[2022-05-10] MEDS: LACTIC ACID 12% LOTION 225 GM BTL TOP SCH (12:14)
[2022-05-10 12:34] LABS: CALCIUM LEVEL 8.6 MG/DL (8.3-10.6); CREATININE FOR GFR 2.15 MG/DL (0.70-1.30); GLOMERULAR FILTRATION RATE 31.9 (>42)
[2022-05-10 14:00] VITALS: BP 150/75
[2022-05-10 20:00] VITALS: BP 145/70
[2022-05-10] MEDS: ATORVASTATIN 20 MG TAB PO SCH (20:42)
[2022-05-10] MEDS: TAMSULOSIN 0.4 MG CAP PO SCH (20:42)
[2022-05-10] MEDS: EZETIMIBE 10MG TABLET (ZETIA) PO SCH (20:42)
[2022-05-10] MEDS: AMITRIPTYLINE 25MG TABLET PO SCH (20:42)
[2022-05-10] MEDS: SENNA 8.6 MG TAB (SENOKOT) PO SCH (20:44)
[2022-05-11 06:00] VITALS: BP 141/74
[2022-05-11] MEDS: COMBIVENT RESPIMAT 100-20MCG INHALER 4GM INH SCH ×3 (08:00→20:10)
[2022-05-11] MEDS: MIRALAX *UNIT DOSE* 17GM PACKET PO SCH ×2 (08:06→19:16)
[2022-05-11] MEDS: DOCUSATE SODIUM 100MG CAPSULE PO SCH ×2 (08:28→20:34)
[2022-05-11] MEDS: CARVedilol 3.125 MG TAB PO SCH ×2 (08:28→20:35)
[2022-05-11] MEDS: ESCITALOPRAM OXALATE 5MG TABLET (LEXAPRO) PO SCH (08:28)
[2022-05-11] MEDS: allopurinoL 100 MG TAB PO SCH (08:28)
[2022-05-11] MEDS: APIXABAN 2.5 MG TAB (ELIQUIS) PO SCH ×2 (08:28→20:34)
[2022-05-11] MEDS: PANTOPRAZOLE 40MG TAB (PROTONIX) PO SCH (08:28)
[2022-05-11] MEDS: FOLIC ACID 1MG TAB PO SCH (08:28)
[2022-05-11] MEDS: SUCRALFATE 1 GM TAB PO SCH ×2 (08:28→20:34)
[2022-05-11] MEDS: GABAPENTIN 300 MG CAP PO SCH ×2 (08:28→20:34)
[2022-05-11] MEDS: LACTOBACILLUS ACIDOPHILUS CAP (BACID) PO SCH ×2 (08:28→16:35)
[2022-05-11] MEDS: ACETAMINOPHEN 325 MG TAB PO SCH ×3 (08:29→20:35)
[2022-05-11] MEDS: LEVEMIR (INSULIN DETEMIR) 1 UNITS/0.01ML SC SCH (08:29)
[2022-05-11] MEDS: INSULIN LISPRO (NovoLOG) PER UNIT SC SCH ×4 (08:29→20:29)
[2022-05-11] MEDS: LACTIC ACID 12% LOTION 225 GM BTL TOP SCH (08:32)
[2022-05-11] MEDS: REMEDY PHYTOPLEX Z-GUARD PASTE 113GM TUBE (FROM STOREROOM PRODUCT) TOP SCH ×4 (08:32→20:35)
[2022-05-11] MEDS: CLOPIDOGREL 75 MG TAB PO SCH (08:33)
[2022-05-11] MEDS: NYSTATIN 100,000 UNITS/GM TOPICAL PWD 15GM TOP SCH ×2 (08:33→19:17)
[2022-05-11] MEDS: TORSEMIDE 20 MG TAB PO SCH (12:23)
[2022-05-11 14:00] VITALS: BP 157/72
[2022-05-11] MEDS: SENNA 8.6 MG TAB (SENOKOT) PO SCH (19:16)
[2022-05-11 20:00] VITALS: BP 146/75
[2022-05-11] MEDS: EZETIMIBE 10MG TABLET (ZETIA) PO SCH (20:34)
[2022-05-11] MEDS: TAMSULOSIN 0.4 MG CAP PO SCH (20:34)
[2022-05-11] MEDS: AMITRIPTYLINE 25MG TABLET PO SCH (20:34)
[2022-05-11] MEDS: ATORVASTATIN 20 MG TAB PO SCH (20:34)
[2022-05-12 06:00] VITALS: BP 140/82
[2022-05-12] MEDS: COMBIVENT RESPIMAT 100-20MCG INHALER 4GM INH SCH ×3 (07:57→20:11)
[2022-05-12] MEDS: allopurinoL 100 MG TAB PO SCH (08:15)
[2022-05-12] MEDS: INSULIN LISPRO (NovoLOG) PER UNIT SC SCH ×4 (08:15→20:54)
[2022-05-12] MEDS: LEVEMIR (INSULIN DETEMIR) 1 UNITS/0.01ML SC SCH (08:15)
[2022-05-12] MEDS: APIXABAN 2.5 MG TAB (ELIQUIS) PO SCH ×2 (08:16→20:50)
[2022-05-12] MEDS: LACTOBACILLUS ACIDOPHILUS CAP (BACID) PO SCH ×2 (08:16→17:16)
[2022-05-12] MEDS: ESCITALOPRAM OXALATE 5MG TABLET (LEXAPRO) PO SCH (08:17)
[2022-05-12] MEDS: SUCRALFATE 1 GM TAB PO SCH ×2 (08:17→20:51)
[2022-05-12] MEDS: FOLIC ACID 1MG TAB PO SCH (08:17)
[2022-05-12] MEDS: GABAPENTIN 300 MG CAP PO SCH ×2 (08:17→20:50)
[2022-05-12] MEDS: DOCUSATE SODIUM 100MG CAPSULE PO SCH ×2 (08:17→20:50)
[2022-05-12] MEDS: CARVedilol 3.125 MG TAB PO SCH ×2 (08:17→20:50)
[2022-05-12] MEDS: CLOPIDOGREL 75 MG TAB PO SCH (08:17)
[2022-05-12] MEDS: ACETAMINOPHEN 325 MG TAB PO SCH ×3 (08:17→20:51)
[2022-05-12] MEDS: PANTOPRAZOLE 40MG TAB (PROTONIX) PO SCH (08:17)
[2022-05-12] MEDS: LACTIC ACID 12% LOTION 225 GM BTL TOP SCH (08:18)
[2022-05-12] MEDS: NYSTATIN 100,000 UNITS/GM TOPICAL PWD 15GM TOP SCH ×2 (08:18→20:52)
[2022-05-12] MEDS: REMEDY PHYTOPLEX Z-GUARD PASTE 113GM TUBE (FROM STOREROOM PRODUCT) TOP SCH ×4 (08:18→21:00)
[2022-05-12] MEDS: MIRALAX *UNIT DOSE* 17GM PACKET PO SCH ×2 (08:18→20:54)
[2022-05-12] MEDS: TORSEMIDE 20 MG TAB PO SCH (12:11)
[2022-05-12 14:00] VITALS: BP 140/68
[2022-05-12 18:45] VITALS: BP 128/65
[2022-05-12] MEDS: AMITRIPTYLINE 25MG TABLET PO SCH (20:48)
[2022-05-12] MEDS: ATORVASTATIN 20 MG TAB PO SCH (20:50)
[2022-05-12] MEDS: EZETIMIBE 10MG TABLET (ZETIA) PO SCH (20:51)
[2022-05-12] MEDS: RAMELTEON 8 MG TAB (ROZEREM) PO PRN (20:51)
[2022-05-12] MEDS: TAMSULOSIN 0.4 MG CAP PO SCH (20:51)
[2022-05-12] MEDS: SENNA 8.6 MG TAB (SENOKOT) PO SCH ×3 (20:51→20:59)
[2022-05-13 06:00] VITALS: BP 128/78
[2022-05-13 06:47] LABS: BASO % 0.4 % (0.0-1.0); EOS # 0.8 10^3/uL (0.0-0.5); EOS % 9.8 % (0.0-3.0); HEMATOCRIT 31.5 % (42.0-52.0); HEMOGLOBIN 9.8 g/dl (13.5-17.5); LYMPH % 11.9 % (24.0-44.0); MEAN CORPUSCULAR HEMOGLOBIN 29.3 pg (27.0-33.0); MEAN CORPUSCULAR HGB CONC 31.1 g/dl (32.0-36.5); MONO # 0.7 10^3/uL (0.0-0.8); MONO % 8.2 % (2.0-8.0); NEUTROPHILS # 5.8 10^3/uL (1.5-8.5); NEUTROPHILS % 69.5 % (36.0-66.0); PLATELET COUNT, AUTOMATED 200 10^3/uL (150-450); RED BLOOD COUNT 3.35 10^6/uL (4.30-6.10); WHITE BLOOD COUNT 8.4 10^3/uL (4.0-10.0)
[2022-05-13 07:11] LABS: CALCIUM LEVEL 8.5 MG/DL (8.3-10.6); CREATININE FOR GFR 1.86 MG/DL (0.70-1.30); GLOMERULAR FILTRATION RATE 37.7 (>42); POTASSIUM SERUM 3.9 MMOL/L (3.5-5.1)
[2022-05-13] MEDS: INSULIN LISPRO (NovoLOG) PER UNIT SC SCH ×4 (07:48→22:11)
[2022-05-13] MEDS: LACTOBACILLUS ACIDOPHILUS CAP (BACID) PO SCH ×2 (07:49→18:24)
[2022-05-13] MEDS: COMBIVENT RESPIMAT 100-20MCG INHALER 4GM INH SCH ×3 (08:25→20:01)
[2022-05-13] MEDS: GABAPENTIN 300 MG CAP PO SCH ×2 (08:41→22:10)
[2022-05-13] MEDS: DOCUSATE SODIUM 100MG CAPSULE PO SCH ×2 (08:41→22:11)
[2022-05-13] MEDS: ESCITALOPRAM OXALATE 5MG TABLET (LEXAPRO) PO SCH (08:41)
[2022-05-13] MEDS: SUCRALFATE 1 GM TAB PO SCH ×2 (08:41→22:11)
[2022-05-13] MEDS: APIXABAN 2.5 MG TAB (ELIQUIS) PO SCH ×2 (08:42→22:11)
[2022-05-13] MEDS: PANTOPRAZOLE 40MG TAB (PROTONIX) PO SCH (08:42)
[2022-05-13] MEDS: FOLIC ACID 1MG TAB PO SCH (08:42)
[2022-05-13] MEDS: ACETAMINOPHEN 325 MG TAB PO SCH ×3 (08:42→22:10)
[2022-05-13] MEDS: allopurinoL 100 MG TAB PO SCH (08:43)
[2022-05-13] MEDS: CARVedilol 3.125 MG TAB PO SCH ×2 (08:43→22:10)
[2022-05-13] MEDS: CLOPIDOGREL 75 MG TAB PO SCH (08:43)
[2022-05-13] MEDS: LEVEMIR (INSULIN DETEMIR) 1 UNITS/0.01ML SC SCH (08:43)
[2022-05-13] MEDS: NYSTATIN 100,000 UNITS/GM TOPICAL PWD 15GM TOP SCH ×2 (08:44→22:11)
[2022-05-13] MEDS: REMEDY PHYTOPLEX Z-GUARD PASTE 113GM TUBE (FROM STOREROOM PRODUCT) TOP SCH ×4 (08:44→22:13)
[2022-05-13] MEDS: MIRALAX *UNIT DOSE* 17GM PACKET PO SCH ×2 (08:45→22:09)
[2022-05-13] MEDS: LACTIC ACID 12% LOTION 225 GM BTL TOP SCH (08:45)
[2022-05-13] MEDS: TORSEMIDE 20 MG TAB PO SCH (12:23)
[2022-05-13 12:29] LABS: PERCENT SATURATION 20.1 % (19.7-50.0)
[2022-05-13 14:00] VITALS: BP 158/58
[2022-05-13 20:00] VITALS: BP 133/65
[2022-05-13] MEDS: AMITRIPTYLINE 25MG TABLET PO SCH (22:10)
[2022-05-13] MEDS: TAMSULOSIN 0.4 MG CAP PO SCH (22:11)
[2022-05-13] MEDS: SENNA 8.6 MG TAB (SENOKOT) PO SCH (22:11)
[2022-05-13] MEDS: EZETIMIBE 10MG TABLET (ZETIA) PO SCH (22:11)
[2022-05-13] MEDS: ATORVASTATIN 20 MG TAB PO SCH (22:11)
[2022-05-14 06:00] VITALS: BP 153/76
[2022-05-14] MEDS: COMBIVENT RESPIMAT 100-20MCG INHALER 4GM INH SCH ×3 (07:05→21:04)
[2022-05-14] MEDS: LACTOBACILLUS ACIDOPHILUS CAP (BACID) PO SCH ×2 (07:23→17:18)
[2022-05-14] MEDS: INSULIN LISPRO (NovoLOG) PER UNIT SC SCH ×4 (07:23→20:57)
[2022-05-14] MEDS: LEVEMIR (INSULIN DETEMIR) 1 UNITS/0.01ML SC SCH (08:14)
[2022-05-14] MEDS: ESCITALOPRAM OXALATE 5MG TABLET (LEXAPRO) PO SCH (08:15)
[2022-05-14] MEDS: FOLIC ACID 1MG TAB PO SCH (08:15)
[2022-05-14] MEDS: allopurinoL 100 MG TAB PO SCH (08:15)
[2022-05-14] MEDS: CLOPIDOGREL 75 MG TAB PO SCH (08:15)
[2022-05-14] MEDS: SUCRALFATE 1 GM TAB PO SCH ×2 (08:15→20:53)
[2022-05-14] MEDS: GABAPENTIN 300 MG CAP PO SCH (08:15)
[2022-05-14] MEDS: CARVedilol 3.125 MG TAB PO SCH ×2 (08:16→20:53)
[2022-05-14] MEDS: PANTOPRAZOLE 40MG TAB (PROTONIX) PO SCH (08:16)
[2022-05-14] MEDS: APIXABAN 2.5 MG TAB (ELIQUIS) PO SCH ×2 (08:16→20:54)
[2022-05-14] MEDS: ACETAMINOPHEN 325 MG TAB PO SCH ×3 (08:16→20:53)
[2022-05-14] MEDS: LACTIC ACID 12% LOTION 225 GM BTL TOP SCH (08:17)
[2022-05-14] MEDS: DOCUSATE SODIUM 100MG CAPSULE PO SCH ×2 (08:17→20:54)
[2022-05-14] MEDS: MIRALAX *UNIT DOSE* 17GM PACKET PO SCH ×2 (08:17→20:57)
[2022-05-14] MEDS: REMEDY PHYTOPLEX Z-GUARD PASTE 113GM TUBE (FROM STOREROOM PRODUCT) TOP SCH ×4 (08:18→21:00)
[2022-05-14] MEDS: NYSTATIN 100,000 UNITS/GM TOPICAL PWD 15GM TOP SCH ×2 (08:18→21:00)
[2022-05-14] MEDS: TORSEMIDE 20 MG TAB PO SCH (12:23)
[2022-05-14 14:00] VITALS: BP 179/75
[2022-05-14 20:19] VITALS: BP 134/64
[2022-05-14] MEDS: TAMSULOSIN 0.4 MG CAP PO SCH (20:53)
[2022-05-14] MEDS: AMITRIPTYLINE 25MG TABLET PO SCH (20:54)
[2022-05-14] MEDS: FINASTERIDE 5MG TAB PO SCH (20:54)
[2022-05-14] MEDS: ATORVASTATIN 20 MG TAB PO SCH (20:54)
[2022-05-14] MEDS: GABAPENTIN 100 MG CAP PO SCH (20:54)
[2022-05-14] MEDS: EZETIMIBE 10MG TABLET (ZETIA) PO SCH (20:54)
[2022-05-14] MEDS: SENNA 8.6 MG TAB (SENOKOT) PO SCH (20:57)
[2022-05-15 05:57] LABS: BASO % 0.2 % (0.0-1.0); EOS # 1.3 10^3/uL (0.0-0.5); EOS % 14.5 % (0.0-3.0); HEMATOCRIT 32.2 % (42.0-52.0); HEMOGLOBIN 9.8 g/dl (13.5-17.5); LYMPH # 1.1 10^3/uL (1.5-5.0); LYMPH % 12.5 % (24.0-44.0); MEAN CORPUSCULAR HEMOGLOBIN 28.7 pg (27.0-33.0); MEAN CORPUSCULAR HGB CONC 30.4 g/dl (32.0-36.5); MEAN CORPUSCULAR VOLUME 94.4 fl (80.0-96.0); MONO # 0.7 10^3/uL (0.0-0.8); MONO % 7.4 % (2.0-8.0); NEUTROPHILS # 5.7 10^3/uL (1.5-8.5); NEUTROPHILS % 65.1 % (36.0-66.0); PLATELET COUNT, AUTOMATED 183 10^3/uL (150-450); RED BLOOD COUNT 3.41 10^6/uL (4.30-6.10); WHITE BLOOD COUNT 8.8 10^3/uL (4.0-10.0)
[2022-05-15 06:00] VITALS: BP 151/70
[2022-05-15 06:47] LABS: CALCIUM LEVEL 8.6 MG/DL (8.3-10.6); CREATININE FOR GFR 2.03 MG/DL (0.70-1.30); GLOMERULAR FILTRATION RATE 34.1 (>42); POTASSIUM SERUM 3.9 MMOL/L (3.5-5.1)
[2022-05-15] MEDS: COMBIVENT RESPIMAT 100-20MCG INHALER 4GM INH SCH ×3 (07:26→20:57)
[2022-05-15] MEDS: LEVEMIR (INSULIN DETEMIR) 1 UNITS/0.01ML SC SCH (08:28)
[2022-05-15] MEDS: LACTOBACILLUS ACIDOPHILUS CAP (BACID) PO SCH ×2 (08:29→17:20)
[2022-05-15] MEDS: FOLIC ACID 1MG TAB PO SCH (08:29)
[2022-05-15] MEDS: CLOPIDOGREL 75 MG TAB PO SCH (08:29)
[2022-05-15] MEDS: SUCRALFATE 1 GM TAB PO SCH ×2 (08:29→21:28)
[2022-05-15] MEDS: DOCUSATE SODIUM 100MG CAPSULE PO SCH ×2 (08:29→21:29)
[2022-05-15] MEDS: GABAPENTIN 100 MG CAP PO SCH ×2 (08:29→21:29)
[2022-05-15] MEDS: CARVedilol 3.125 MG TAB PO SCH ×2 (08:29→21:29)
[2022-05-15] MEDS: INSULIN LISPRO (NovoLOG) PER UNIT SC SCH ×4 (08:29→21:00)
[2022-05-15] MEDS: ESCITALOPRAM OXALATE 5MG TABLET (LEXAPRO) PO SCH (08:29)
[2022-05-15] MEDS: APIXABAN 2.5 MG TAB (ELIQUIS) PO SCH ×2 (08:29→21:29)
[2022-05-15] MEDS: allopurinoL 100 MG TAB PO SCH (08:30)
[2022-05-15] MEDS: LACTIC ACID 12% LOTION 225 GM BTL TOP SCH (08:30)
[2022-05-15] MEDS: ACETAMINOPHEN 325 MG TAB PO SCH ×3 (08:30→21:30)
[2022-05-15] MEDS: MIRALAX *UNIT DOSE* 17GM PACKET PO SCH ×2 (08:30→21:00)
[2022-05-15] MEDS: PANTOPRAZOLE 40MG TAB (PROTONIX) PO SCH (08:30)
[2022-05-15] MEDS: REMEDY PHYTOPLEX Z-GUARD PASTE 113GM TUBE (FROM STOREROOM PRODUCT) TOP SCH ×4 (08:31→21:30)
[2022-05-15] MEDS: NYSTATIN 100,000 UNITS/GM TOPICAL PWD 15GM TOP SCH ×2 (08:31→21:00)
[2022-05-15] MEDS: TORSEMIDE 20 MG TAB PO SCH (11:49)
[2022-05-15 14:00] VITALS: BP 132/67
[2022-05-15 19:30] VITALS: BP 153/78
[2022-05-15] MEDS: SENNA 8.6 MG TAB (SENOKOT) PO SCH (21:00)
[2022-05-15] MEDS: TAMSULOSIN 0.4 MG CAP PO SCH (21:28)
[2022-05-15] MEDS: EZETIMIBE 10MG TABLET (ZETIA) PO SCH (21:28)
[2022-05-15] MEDS: FINASTERIDE 5MG TAB PO SCH (21:29)
[2022-05-15] MEDS: AMITRIPTYLINE 25MG TABLET PO SCH (21:29)
[2022-05-15] MEDS: ATORVASTATIN 20 MG TAB PO SCH (21:29)
[2022-05-16 05:08] VITALS: BP 169/81
[2022-05-16 06:48] VITALS: BP 132/64
[2022-05-16] MEDS: COMBIVENT RESPIMAT 100-20MCG INHALER 4GM INH SCH ×3 (07:46→20:50)
[2022-05-16] MEDS: INSULIN LISPRO (NovoLOG) PER UNIT SC SCH ×4 (08:39→19:41)
[2022-05-16] MEDS: FOLIC ACID 1MG TAB PO SCH (08:39)
[2022-05-16] MEDS: LEVEMIR (INSULIN DETEMIR) 1 UNITS/0.01ML SC SCH (08:39)
[2022-05-16] MEDS: ACETAMINOPHEN 325 MG TAB PO SCH ×3 (08:40→20:57)
[2022-05-16] MEDS: MIRALAX *UNIT DOSE* 17GM PACKET PO SCH ×2 (08:40→20:57)
[2022-05-16] MEDS: allopurinoL 100 MG TAB PO SCH (08:40)
[2022-05-16] MEDS: PANTOPRAZOLE 40MG TAB (PROTONIX) PO SCH (08:40)
[2022-05-16] MEDS: DOCUSATE SODIUM 100MG CAPSULE PO SCH ×2 (08:40→20:57)
[2022-05-16] MEDS: ESCITALOPRAM OXALATE 5MG TABLET (LEXAPRO) PO SCH (08:40)
[2022-05-16] MEDS: CARVedilol 3.125 MG TAB PO SCH ×2 (08:40→20:56)
[2022-05-16] MEDS: CLOPIDOGREL 75 MG TAB PO SCH (08:40)
[2022-05-16] MEDS: LACTOBACILLUS ACIDOPHILUS CAP (BACID) PO SCH ×2 (08:40→16:29)
[2022-05-16] MEDS: APIXABAN 2.5 MG TAB (ELIQUIS) PO SCH ×2 (08:40→20:56)
[2022-05-16] MEDS: SUCRALFATE 1 GM TAB PO SCH ×2 (08:40→20:56)
[2022-05-16] MEDS: GABAPENTIN 100 MG CAP PO SCH (08:40)
[2022-05-16] MEDS: NYSTATIN 100,000 UNITS/GM TOPICAL PWD 15GM TOP SCH ×2 (08:41→20:57)
[2022-05-16] MEDS: LACTIC ACID 12% LOTION 225 GM BTL TOP SCH (08:41)
[2022-05-16] MEDS: REMEDY PHYTOPLEX Z-GUARD PASTE 113GM TUBE (FROM STOREROOM PRODUCT) TOP SCH ×4 (08:41→20:58)
[2022-05-16] MEDS: TORSEMIDE 20 MG TAB PO SCH (11:46)
[2022-05-16 14:00] VITALS: BP 146/70
[2022-05-16 20:00] VITALS: BP 149/72
[2022-05-16] MEDS: TAMSULOSIN 0.4 MG CAP PO SCH (20:56)
[2022-05-16] MEDS: EZETIMIBE 10MG TABLET (ZETIA) PO SCH (20:56)
[2022-05-16] MEDS: AMITRIPTYLINE 25MG TABLET PO SCH (20:56)
[2022-05-16] MEDS: ATORVASTATIN 20 MG TAB PO SCH (20:56)
[2022-05-16] MEDS: FINASTERIDE 5MG TAB PO SCH (20:57)
[2022-05-16] MEDS: SENNA 8.6 MG TAB (SENOKOT) PO SCH (20:57)
[2022-05-17 06:00] VITALS: BP 154/75
[2022-05-17 06:33] LABS: BASO % 0.4 % (0.0-1.0); EOS # 1.1 10^3/uL (0.0-0.5); EOS % 13.6 % (0.0-3.0); HEMATOCRIT 31.6 % (42.0-52.0); HEMOGLOBIN 9.7 g/dl (13.5-17.5); LYMPH # 1.1 10^3/uL (1.5-5.0); LYMPH % 13.4 % (24.0-44.0); MEAN CORPUSCULAR HEMOGLOBIN 28.9 pg (27.0-33.0); MEAN CORPUSCULAR HGB CONC 30.7 g/dl (32.0-36.5); MONO # 0.6 10^3/uL (0.0-0.8); MONO % 7.6 % (2.0-8.0); NEUTROPHILS # 5.3 10^3/uL (1.5-8.5); NEUTROPHILS % 64.6 % (36.0-66.0); PLATELET COUNT, AUTOMATED 195 10^3/uL (150-450); RED BLOOD COUNT 3.36 10^6/uL (4.30-6.10); WHITE BLOOD COUNT 8.3 10^3/uL (4.0-10.0)
[2022-05-17 07:04] LABS: CALCIUM LEVEL 8.2 MG/DL (8.3-10.6); CREATININE FOR GFR 1.92 MG/DL (0.70-1.30); GLOMERULAR FILTRATION RATE 36.3 (>42); POTASSIUM SERUM 3.8 MMOL/L (3.5-5.1)
[2022-05-17] MEDS: COMBIVENT RESPIMAT 100-20MCG INHALER 4GM INH SCH ×3 (07:19→19:46)
[2022-05-17] MEDS: FOLIC ACID 1MG TAB PO SCH (08:41)
[2022-05-17] MEDS: LACTOBACILLUS ACIDOPHILUS CAP (BACID) PO SCH ×2 (08:41→17:34)
[2022-05-17] MEDS: INSULIN LISPRO (NovoLOG) PER UNIT SC SCH ×4 (08:42→23:37)
[2022-05-17] MEDS: LEVEMIR (INSULIN DETEMIR) 1 UNITS/0.01ML SC SCH (08:42)
[2022-05-17] MEDS: PANTOPRAZOLE 40MG TAB (PROTONIX) PO SCH (08:43)
[2022-05-17] MEDS: CLOPIDOGREL 75 MG TAB PO SCH (08:43)
[2022-05-17] MEDS: CARVedilol 3.125 MG TAB PO SCH ×2 (08:43→23:33)
[2022-05-17] MEDS: SUCRALFATE 1 GM TAB PO SCH ×2 (08:45→23:34)
[2022-05-17] MEDS: ACETAMINOPHEN 325 MG TAB PO SCH ×3 (08:45→23:35)
[2022-05-17] MEDS: ESCITALOPRAM OXALATE 5MG TABLET (LEXAPRO) PO SCH (08:45)
[2022-05-17] MEDS: allopurinoL 100 MG TAB PO SCH (08:45)
[2022-05-17] MEDS: MIRALAX *UNIT DOSE* 17GM PACKET PO SCH ×2 (08:46→23:36)
[2022-05-17] MEDS: DOCUSATE SODIUM 100MG CAPSULE PO SCH ×2 (08:46→23:38)
[2022-05-17] MEDS: APIXABAN 2.5 MG TAB (ELIQUIS) PO SCH ×2 (08:46→23:35)
[2022-05-17] MEDS: REMEDY PHYTOPLEX Z-GUARD PASTE 113GM TUBE (FROM STOREROOM PRODUCT) TOP SCH ×4 (08:50→23:39)
[2022-05-17] MEDS: NYSTATIN 100,000 UNITS/GM TOPICAL PWD 15GM TOP SCH ×2 (08:50→23:37)
[2022-05-17] MEDS: LACTIC ACID 12% LOTION 225 GM BTL TOP SCH (08:50)
[2022-05-17] MEDS: DARBEPOETIN 100MCG/0.5ML *NON-DIALYSIS* SYRINGE SC SCH (09:00)
[2022-05-17] MEDS ORDERED: FERRIC CARBOXYMALTOSE INJ 750 MG, VIAL MATE ADAPTER 1 EACH in NS 250 ML IV ONE (09:00)
[2022-05-17] MEDS: TORSEMIDE 20 MG TAB PO SCH (13:05)
[2022-05-17 14:00] VITALS: BP 151/76
[2022-05-17 20:00] VITALS: BP 155/75
[2022-05-17] MEDS: AMITRIPTYLINE 25MG TABLET PO SCH (23:33)
[2022-05-17] MEDS: EZETIMIBE 10MG TABLET (ZETIA) PO SCH (23:34)
[2022-05-17] MEDS: TAMSULOSIN 0.4 MG CAP PO SCH (23:34)
[2022-05-17] MEDS: ATORVASTATIN 20 MG TAB PO SCH (23:35)
[2022-05-17] MEDS: FINASTERIDE 5MG TAB PO SCH (23:35)
[2022-05-17] MEDS: SENNA 8.6 MG TAB (SENOKOT) PO SCH (23:36)
[2022-05-17] MEDS: RAMELTEON 8 MG TAB (ROZEREM) PO PRN (23:48)
[2022-05-18 06:00] VITALS: BP 152/75
[2022-05-18] MEDS: COMBIVENT RESPIMAT 100-20MCG INHALER 4GM INH SCH ×3 (08:00→19:41)
[2022-05-18] MEDS: MIRALAX *UNIT DOSE* 17GM PACKET PO SCH ×2 (09:00→21:50)
[2022-05-18] MEDS: DOCUSATE SODIUM 100MG CAPSULE PO SCH ×2 (09:00→21:55)
[2022-05-18] MEDS: FOLIC ACID 1MG TAB PO SCH (09:18)
[2022-05-18] MEDS: allopurinoL 100 MG TAB PO SCH (09:19)
[2022-05-18] MEDS: PANTOPRAZOLE 40MG TAB (PROTONIX) PO SCH (09:19)
[2022-05-18] MEDS: CLOPIDOGREL 75 MG TAB PO SCH (09:19)
[2022-05-18] MEDS: APIXABAN 2.5 MG TAB (ELIQUIS) PO SCH ×2 (09:19→21:54)
[2022-05-18] MEDS: ACETAMINOPHEN 325 MG TAB PO SCH ×3 (09:19→21:56)
[2022-05-18] MEDS: SUCRALFATE 1 GM TAB PO SCH ×2 (09:19→21:53)
[2022-05-18] MEDS: ESCITALOPRAM OXALATE 5MG TABLET (LEXAPRO) PO SCH (09:19)
[2022-05-18] MEDS: LACTOBACILLUS ACIDOPHILUS CAP (BACID) PO SCH ×2 (09:19→18:13)
[2022-05-18] MEDS: LEVEMIR (INSULIN DETEMIR) 1 UNITS/0.01ML SC SCH (09:20)
[2022-05-18] MEDS: INSULIN LISPRO (NovoLOG) PER UNIT SC SCH ×4 (09:20→21:00)
[2022-05-18] MEDS: LACTIC ACID 12% LOTION 225 GM BTL TOP SCH (09:21)
[2022-05-18] MEDS: REMEDY PHYTOPLEX Z-GUARD PASTE 113GM TUBE (FROM STOREROOM PRODUCT) TOP SCH ×4 (09:21→21:56)
[2022-05-18] MEDS: NYSTATIN 100,000 UNITS/GM TOPICAL PWD 15GM TOP SCH ×2 (09:21→21:00)
[2022-05-18] MEDS: CARVedilol 3.125 MG TAB PO SCH ×2 (09:24→21:55)
[2022-05-18] MEDS: TORSEMIDE 20 MG TAB PO SCH (12:14)
[2022-05-18 14:00] VITALS: BP 141/72
[2022-05-18 20:00] VITALS: BP 111/57
[2022-05-18] MEDS: SENNA 8.6 MG TAB (SENOKOT) PO SCH (21:50)
[2022-05-18] MEDS: EZETIMIBE 10MG TABLET (ZETIA) PO SCH (21:54)
[2022-05-18] MEDS: AMITRIPTYLINE 25MG TABLET PO SCH (21:54)
[2022-05-18] MEDS: ATORVASTATIN 20 MG TAB PO SCH (21:54)
[2022-05-18] MEDS: FINASTERIDE 5MG TAB PO SCH (21:55)
[2022-05-18] MEDS: TAMSULOSIN 0.4 MG CAP PO SCH (21:55)
[2022-05-18] MEDS: RAMELTEON 8 MG TAB (ROZEREM) PO PRN (22:28)
[2022-05-19 06:00] VITALS: BP 150/81
[2022-05-19] MEDS: COMBIVENT RESPIMAT 100-20MCG INHALER 4GM INH SCH ×3 (07:12→19:25)
[2022-05-19] MEDS: INSULIN LISPRO (NovoLOG) PER UNIT SC SCH ×4 (08:43→20:39)
[2022-05-19] MEDS: LACTOBACILLUS ACIDOPHILUS CAP (BACID) PO SCH ×2 (08:44→17:57)
[2022-05-19] MEDS: DOCUSATE SODIUM 100MG CAPSULE PO SCH ×2 (08:44→20:45)
[2022-05-19] MEDS: SUCRALFATE 1 GM TAB PO SCH ×2 (08:44→20:43)
[2022-05-19] MEDS: CARVedilol 3.125 MG TAB PO SCH ×2 (08:45→20:45)
[2022-05-19] MEDS: APIXABAN 2.5 MG TAB (ELIQUIS) PO SCH ×2 (08:45→20:44)
[2022-05-19] MEDS: ESCITALOPRAM OXALATE 5MG TABLET (LEXAPRO) PO SCH (08:46)
[2022-05-19] MEDS: FOLIC ACID 1MG TAB PO SCH (08:46)
[2022-05-19] MEDS: MIRALAX *UNIT DOSE* 17GM PACKET PO SCH ×2 (08:46→20:45)
[2022-05-19] MEDS: ACETAMINOPHEN 325 MG TAB PO SCH ×3 (08:47→20:44)
[2022-05-19] MEDS: PANTOPRAZOLE 40MG TAB (PROTONIX) PO SCH (08:47)
[2022-05-19] MEDS: CLOPIDOGREL 75 MG TAB PO SCH (08:47)
[2022-05-19] MEDS: allopurinoL 100 MG TAB PO SCH (08:48)
[2022-05-19] MEDS: LEVEMIR (INSULIN DETEMIR) 1 UNITS/0.01ML SC SCH (08:48)
[2022-05-19] MEDS: NYSTATIN 100,000 UNITS/GM TOPICAL PWD 15GM TOP SCH ×2 (08:50→20:46)
[2022-05-19] MEDS: LACTIC ACID 12% LOTION 225 GM BTL TOP SCH (08:50)
[2022-05-19] MEDS: REMEDY PHYTOPLEX Z-GUARD PASTE 113GM TUBE (FROM STOREROOM PRODUCT) TOP SCH ×4 (08:50→20:46)
[2022-05-19] MEDS: TORSEMIDE 20 MG TAB PO SCH (12:26)
[2022-05-19 14:00] VITALS: BP 131/67
[2022-05-19 20:00] VITALS: BP 133/70
[2022-05-19] MEDS: ATORVASTATIN 20 MG TAB PO SCH (20:43)
[2022-05-19] MEDS: RAMELTEON 8 MG TAB (ROZEREM) PO PRN (20:43)
[2022-05-19] MEDS: FINASTERIDE 5MG TAB PO SCH (20:43)
[2022-05-19] MEDS: TAMSULOSIN 0.4 MG CAP PO SCH (20:44)
[2022-05-19] MEDS: EZETIMIBE 10MG TABLET (ZETIA) PO SCH (20:44)
[2022-05-19] MEDS: AMITRIPTYLINE 25MG TABLET PO SCH (20:44)
[2022-05-19] MEDS: SENNA 8.6 MG TAB (SENOKOT) PO SCH (20:45)
[2022-05-20 06:51] VITALS: BP 132/90
[2022-05-20] MEDS: COMBIVENT RESPIMAT 100-20MCG INHALER 4GM INH SCH ×3 (08:00→20:02)
[2022-05-20] MEDS: LACTOBACILLUS ACIDOPHILUS CAP (BACID) PO SCH ×2 (08:15→17:07)
[2022-05-20] MEDS: ACETAMINOPHEN 325 MG TAB PO SCH ×3 (08:15→21:46)
[2022-05-20] MEDS: ESCITALOPRAM OXALATE 5MG TABLET (LEXAPRO) PO SCH (08:15)
[2022-05-20] MEDS: APIXABAN 2.5 MG TAB (ELIQUIS) PO SCH ×2 (08:16→21:46)
[2022-05-20] MEDS: CLOPIDOGREL 75 MG TAB PO SCH (08:16)
[2022-05-20] MEDS: CARVedilol 3.125 MG TAB PO SCH ×2 (08:16→21:46)
[2022-05-20] MEDS: SUCRALFATE 1 GM TAB PO SCH ×2 (08:16→21:45)
[2022-05-20] MEDS: PANTOPRAZOLE 40MG TAB (PROTONIX) PO SCH (08:16)
[2022-05-20] MEDS: allopurinoL 100 MG TAB PO SCH (08:16)
[2022-05-20] MEDS: LEVEMIR (INSULIN DETEMIR) 1 UNITS/0.01ML SC SCH (08:16)
[2022-05-20] MEDS: FOLIC ACID 1MG TAB PO SCH (08:16)
[2022-05-20] MEDS: MIRALAX *UNIT DOSE* 17GM PACKET PO SCH ×2 (08:17→21:00)
[2022-05-20] MEDS: INSULIN LISPRO (NovoLOG) PER UNIT SC SCH ×4 (08:17→21:00)
[2022-05-20] MEDS: REMEDY PHYTOPLEX Z-GUARD PASTE 113GM TUBE (FROM STOREROOM PRODUCT) TOP SCH ×4 (08:17→21:47)
[2022-05-20] MEDS: DOCUSATE SODIUM 100MG CAPSULE PO SCH ×2 (08:17→21:00)
[2022-05-20] MEDS: NYSTATIN 100,000 UNITS/GM TOPICAL PWD 15GM TOP SCH ×2 (08:18→21:47)
[2022-05-20] MEDS: LACTIC ACID 12% LOTION 225 GM BTL TOP SCH (08:18)
[2022-05-20] MEDS: TORSEMIDE 20 MG TAB PO SCH (13:07)
[2022-05-20 14:00] VITALS: BP 154/71
[2022-05-20 20:00] VITALS: BP 147/70
[2022-05-20] MEDS: SENNA 8.6 MG TAB (SENOKOT) PO SCH (21:00)
[2022-05-20] MEDS: EZETIMIBE 10MG TABLET (ZETIA) PO SCH (21:45)
[2022-05-20] MEDS: RAMELTEON 8 MG TAB (ROZEREM) PO PRN (21:45)
[2022-05-20] MEDS: TAMSULOSIN 0.4 MG CAP PO SCH (21:46)
[2022-05-20] MEDS: ATORVASTATIN 20 MG TAB PO SCH (21:46)
[2022-05-20] MEDS: AMITRIPTYLINE 25MG TABLET PO SCH (21:46)
[2022-05-20] MEDS: FINASTERIDE 5MG TAB PO SCH (21:46)
[2022-05-21 06:00] VITALS: BP 154/74
[2022-05-21] MEDS: CARVedilol 3.125 MG TAB PO SCH ×2 (07:26→20:47)
[2022-05-21] MEDS: LEVEMIR (INSULIN DETEMIR) 1 UNITS/0.01ML SC SCH (07:26)
[2022-05-21] MEDS: LACTOBACILLUS ACIDOPHILUS CAP (BACID) PO SCH ×2 (07:26→17:27)
[2022-05-21] MEDS: INSULIN LISPRO (NovoLOG) PER UNIT SC SCH ×4 (07:26→20:48)
[2022-05-21] MEDS: ESCITALOPRAM OXALATE 5MG TABLET (LEXAPRO) PO SCH (07:26)
[2022-05-21] MEDS: CLOPIDOGREL 75 MG TAB PO SCH (07:26)
[2022-05-21] MEDS: FOLIC ACID 1MG TAB PO SCH (07:27)
[2022-05-21] MEDS: SUCRALFATE 1 GM TAB PO SCH ×2 (07:27→20:47)
[2022-05-21] MEDS: ACETAMINOPHEN 325 MG TAB PO SCH ×3 (07:27→20:48)
[2022-05-21] MEDS: PANTOPRAZOLE 40MG TAB (PROTONIX) PO SCH (07:27)
[2022-05-21] MEDS: APIXABAN 2.5 MG TAB (ELIQUIS) PO SCH ×2 (07:27→20:47)
[2022-05-21] MEDS: allopurinoL 100 MG TAB PO SCH (07:28)
[2022-05-21] MEDS: NYSTATIN 100,000 UNITS/GM TOPICAL PWD 15GM TOP SCH ×2 (07:28→20:54)
[2022-05-21] MEDS: LACTIC ACID 12% LOTION 225 GM BTL TOP SCH (07:30)
[2022-05-21] MEDS: REMEDY PHYTOPLEX Z-GUARD PASTE 113GM TUBE (FROM STOREROOM PRODUCT) TOP SCH ×4 (07:31→20:56)
[2022-05-21] MEDS: DOCUSATE SODIUM 100MG CAPSULE PO SCH ×2 (07:35→20:58)
[2022-05-21] MEDS: MIRALAX *UNIT DOSE* 17GM PACKET PO SCH ×2 (07:35→20:47)
[2022-05-21] MEDS: COMBIVENT RESPIMAT 100-20MCG INHALER 4GM INH SCH ×3 (07:45→20:05)
[2022-05-21] MEDS: TORSEMIDE 20 MG TAB PO SCH (12:10)
[2022-05-21 13:52] VITALS: BP 143/68
[2022-05-21 19:49] VITALS: BP 143/71
[2022-05-21] MEDS: RAMELTEON 8 MG TAB (ROZEREM) PO PRN (20:47)
[2022-05-21] MEDS: FINASTERIDE 5MG TAB PO SCH (20:47)
[2022-05-21] MEDS: ATORVASTATIN 20 MG TAB PO SCH (20:47)
[2022-05-21] MEDS: AMITRIPTYLINE 25MG TABLET PO SCH (20:47)
[2022-05-21] MEDS: TAMSULOSIN 0.4 MG CAP PO SCH (20:47)
[2022-05-21] MEDS: SENNA 8.6 MG TAB (SENOKOT) PO SCH (20:48)
[2022-05-21] MEDS: EZETIMIBE 10MG TABLET (ZETIA) PO SCH (20:53)
[2022-05-22 05:00] VITALS: BP 156/84
[2022-05-22 07:04] LABS: BASO % 0.3 % (0.0-1.0); EOS % 12.6 % (0.0-3.0); HEMATOCRIT 30.8 % (42.0-52.0); HEMOGLOBIN 9.8 g/dl (13.5-17.5); LYMPH # 1.2 10^3/uL (1.5-5.0); LYMPH % 14.6 % (24.0-44.0); MEAN CORPUSCULAR HEMOGLOBIN 29.3 pg (27.0-33.0); MEAN CORPUSCULAR HGB CONC 31.8 g/dl (32.0-36.5); MEAN CORPUSCULAR VOLUME 91.9 fl (80.0-96.0); MONO # 0.6 10^3/uL (0.0-0.8); MONO % 7.3 % (2.0-8.0); NEUTROPHILS # 5.2 10^3/uL (1.5-8.5); NEUTROPHILS % 64.8 % (36.0-66.0); PLATELET COUNT, AUTOMATED 210 10^3/uL (150-450); RED BLOOD COUNT 3.35 10^6/uL (4.30-6.10)
[2022-05-22] MEDS: COMBIVENT RESPIMAT 100-20MCG INHALER 4GM INH SCH ×3 (07:05→20:17)
[2022-05-22 07:27] LABS: CALCIUM LEVEL 8.7 MG/DL (8.3-10.6); CREATININE FOR GFR 1.83 MG/DL (0.70-1.30); GLOMERULAR FILTRATION RATE 38.4 (>42); POTASSIUM SERUM 3.4 MMOL/L (3.5-5.1)
[2022-05-22] MEDS: INSULIN LISPRO (NovoLOG) PER UNIT SC SCH ×4 (08:10→22:17)
[2022-05-22] MEDS: DOCUSATE SODIUM 100MG CAPSULE PO SCH ×2 (08:11→22:18)
[2022-05-22] MEDS: MIRALAX *UNIT DOSE* 17GM PACKET PO SCH ×2 (08:11→22:18)
[2022-05-22] MEDS: LEVEMIR (INSULIN DETEMIR) 1 UNITS/0.01ML SC SCH (08:11)
[2022-05-22] MEDS: FOLIC ACID 1MG TAB PO SCH (08:14)
[2022-05-22] MEDS: CLOPIDOGREL 75 MG TAB PO SCH (08:14)
[2022-05-22] MEDS: allopurinoL 100 MG TAB PO SCH (08:14)
[2022-05-22] MEDS: APIXABAN 2.5 MG TAB (ELIQUIS) PO SCH ×2 (08:14→22:16)
[2022-05-22] MEDS: PANTOPRAZOLE 40MG TAB (PROTONIX) PO SCH (08:14)
[2022-05-22] MEDS: LACTOBACILLUS ACIDOPHILUS CAP (BACID) PO SCH ×2 (08:14→17:46)
[2022-05-22] MEDS: SUCRALFATE 1 GM TAB PO SCH ×2 (08:14→22:15)
[2022-05-22] MEDS: CARVedilol 3.125 MG TAB PO SCH ×2 (08:15→22:15)
[2022-05-22] MEDS: ESCITALOPRAM OXALATE 5MG TABLET (LEXAPRO) PO SCH (08:17)
[2022-05-22] MEDS: ACETAMINOPHEN 325 MG TAB PO SCH ×3 (08:17→22:15)
[2022-05-22] MEDS: REMEDY PHYTOPLEX Z-GUARD PASTE 113GM TUBE (FROM STOREROOM PRODUCT) TOP SCH ×4 (08:19→22:17)
[2022-05-22] MEDS: NYSTATIN 100,000 UNITS/GM TOPICAL PWD 15GM TOP SCH ×2 (08:19→22:16)
[2022-05-22] MEDS: LACTIC ACID 12% LOTION 225 GM BTL TOP SCH (08:19)
[2022-05-22] MEDS ORDERED: POTASSIUM CHLORIDE 10MEQ SR TABLET PO ONE (11:10)
[2022-05-22] MEDS: TORSEMIDE 20 MG TAB PO SCH (12:01)
[2022-05-22 12:08] LABS: MAGNESIUM LEVEL 1.7 MG/DL (1.8-2.4)
[2022-05-22 14:00] VITALS: BP 140/68
[2022-05-22] MEDS: MAGNESIUM OXIDE 400MG TAB (MAG-OX) PO SCH ×2 (17:47→22:16)
[2022-05-22 20:00] VITALS: BP 120/76
[2022-05-22] MEDS: EZETIMIBE 10MG TABLET (ZETIA) PO SCH (22:15)
[2022-05-22] MEDS: ATORVASTATIN 20 MG TAB PO SCH (22:15)
[2022-05-22] MEDS: TAMSULOSIN 0.4 MG CAP PO SCH (22:16)
[2022-05-22] MEDS: AMITRIPTYLINE 25MG TABLET PO SCH (22:16)
[2022-05-22] MEDS: RAMELTEON 8 MG TAB (ROZEREM) PO PRN (22:16)
[2022-05-22] MEDS: FINASTERIDE 5MG TAB PO SCH (22:16)
[2022-05-22] MEDS: SENNA 8.6 MG TAB (SENOKOT) PO SCH (22:18)
[2022-05-23 06:00] VITALS: BP 138/84
[2022-05-23 06:41] LABS: CALCIUM LEVEL 8.8 MG/DL (8.3-10.6); CREATININE FOR GFR 1.82 MG/DL (0.70-1.30); GLOMERULAR FILTRATION RATE 38.6 (>42); POTASSIUM SERUM 3.7 MMOL/L (3.5-5.1)
[2022-05-23] MEDS: PANTOPRAZOLE 40MG TAB (PROTONIX) PO SCH (08:21)
[2022-05-23] MEDS: ACETAMINOPHEN 325 MG TAB PO SCH ×3 (08:22→21:24)
[2022-05-23] MEDS: SUCRALFATE 1 GM TAB PO SCH ×2 (08:22→21:24)
[2022-05-23] MEDS: LACTOBACILLUS ACIDOPHILUS CAP (BACID) PO SCH ×2 (08:22→17:19)
[2022-05-23] MEDS: MAGNESIUM OXIDE 400MG TAB (MAG-OX) PO SCH ×2 (08:23→21:25)
[2022-05-23] MEDS: allopurinoL 100 MG TAB PO SCH (08:23)
[2022-05-23] MEDS: CLOPIDOGREL 75 MG TAB PO SCH (08:23)
[2022-05-23] MEDS: CARVedilol 3.125 MG TAB PO SCH ×2 (08:23→21:27)
[2022-05-23] MEDS: ESCITALOPRAM OXALATE 5MG TABLET (LEXAPRO) PO SCH (08:23)
[2022-05-23] MEDS: APIXABAN 2.5 MG TAB (ELIQUIS) PO SCH ×2 (08:23→21:28)
[2022-05-23] MEDS: COMBIVENT RESPIMAT 100-20MCG INHALER 4GM INH SCH ×3 (08:28→20:02)
[2022-05-23] MEDS: FOLIC ACID 1MG TAB PO SCH (08:31)
[2022-05-23] MEDS: REMEDY PHYTOPLEX Z-GUARD PASTE 113GM TUBE (FROM STOREROOM PRODUCT) TOP SCH ×4 (08:32→21:29)
[2022-05-23] MEDS: LACTIC ACID 12% LOTION 225 GM BTL TOP SCH (08:33)
[2022-05-23] MEDS: NYSTATIN 100,000 UNITS/GM TOPICAL PWD 15GM TOP SCH ×2 (08:35→21:00)
[2022-05-23] MEDS: MIRALAX *UNIT DOSE* 17GM PACKET PO SCH ×2 (08:36→21:00)
[2022-05-23] MEDS: INSULIN LISPRO (NovoLOG) PER UNIT SC SCH ×4 (08:36→21:00)
[2022-05-23] MEDS: DOCUSATE SODIUM 100MG CAPSULE PO SCH ×2 (08:36→21:00)
[2022-05-23] MEDS: LEVEMIR (INSULIN DETEMIR) 1 UNITS/0.01ML SC SCH (08:37)
[2022-05-23] MEDS: TORSEMIDE 20 MG TAB PO SCH (12:00)
[2022-05-23] MEDS ORDERED: SUCR1TA PO (12:59)
[2022-05-23] MEDS ORDERED: ELIQ2.5T PO (12:59)
[2022-05-23] MEDS ORDERED: FLOM0.4C39 PO (12:59)
[2022-05-23] MEDS ORDERED: INSUDET SC (12:59)
[2022-05-23] MEDS ORDERED: MAGN400T2 PO (12:59)
[2022-05-23 14:00] VITALS: BP 130/48
[2022-05-23] MEDS: NYSTATIN 500,000U/5ML SUSP UDC SSP SCH ×2 (17:00→21:00)
[2022-05-23 20:00] VITALS: BP 116/50
[2022-05-23] MEDS: SENNA 8.6 MG TAB (SENOKOT) PO SCH (21:00)
[2022-05-23] MEDS: ATORVASTATIN 20 MG TAB PO SCH (21:24)
[2022-05-23] MEDS: TAMSULOSIN 0.4 MG CAP PO SCH (21:24)
[2022-05-23] MEDS: FINASTERIDE 5MG TAB PO SCH (21:25)
[2022-05-23] MEDS: AMITRIPTYLINE 25MG TABLET PO SCH (21:25)
[2022-05-23] MEDS: EZETIMIBE 10MG TABLET (ZETIA) PO SCH (21:25)
[2022-05-23] MEDS: RAMELTEON 8 MG TAB (ROZEREM) PO PRN (21:25)
[2022-05-24 05:53] VITALS: BP 123/71
[2022-05-24 07:29] LABS: BASO % 0.1 % (0.0-1.0); EOS # 1.1 10^3/uL (0.0-0.5); EOS % 12.2 % (0.0-3.0); HEMATOCRIT 30.2 % (42.0-52.0); HEMOGLOBIN 9.5 g/dl (13.5-17.5); LYMPH # 1.2 10^3/uL (1.5-5.0); LYMPH % 13.1 % (24.0-44.0); MEAN CORPUSCULAR HEMOGLOBIN 29.1 pg (27.0-33.0); MEAN CORPUSCULAR HGB CONC 31.5 g/dl (32.0-36.5); MEAN CORPUSCULAR VOLUME 92.4 fl (80.0-96.0); MONO # 0.7 10^3/uL (0.0-0.8); MONO % 7.6 % (2.0-8.0); NEUTROPHILS # 5.8 10^3/uL (1.5-8.5); NEUTROPHILS % 66.7 % (36.0-66.0); PLATELET COUNT, AUTOMATED 201 10^3/uL (150-450); RED BLOOD COUNT 3.27 10^6/uL (4.30-6.10); WHITE BLOOD COUNT 8.8 10^3/uL (4.0-10.0)
[2022-05-24] MEDS: INSULIN LISPRO (NovoLOG) PER UNIT SC SCH ×4 (07:30→20:06)
[2022-05-24 07:40] LABS: CALCIUM LEVEL 8.7 MG/DL (8.3-10.6); CREATININE FOR GFR 1.89 MG/DL (0.70-1.30); POTASSIUM SERUM 3.7 MMOL/L (3.5-5.1)
[2022-05-24] MEDS: COMBIVENT RESPIMAT 100-20MCG INHALER 4GM INH SCH ×3 (07:43→20:22)
[2022-05-24] MEDS: DOCUSATE SODIUM 100MG CAPSULE PO SCH ×2 (09:00→20:03)
[2022-05-24] MEDS: NYSTATIN 500,000U/5ML SUSP UDC SSP SCH ×4 (09:00→20:03)
[2022-05-24] MEDS: MIRALAX *UNIT DOSE* 17GM PACKET PO SCH ×2 (09:00→20:03)
[2022-05-24] MEDS: LEVEMIR (INSULIN DETEMIR) 1 UNITS/0.01ML SC SCH (09:00)
[2022-05-24] MEDS: NYSTATIN 100,000 UNITS/GM TOPICAL PWD 15GM TOP SCH ×2 (09:00→20:03)
[2022-05-24] MEDS: APIXABAN 2.5 MG TAB (ELIQUIS) PO SCH ×2 (09:11→20:31)
[2022-05-24] MEDS: MAGNESIUM OXIDE 400MG TAB (MAG-OX) PO SCH ×2 (09:11→20:30)
[2022-05-24] MEDS: allopurinoL 100 MG TAB PO SCH (09:11)
[2022-05-24] MEDS: SUCRALFATE 1 GM TAB PO SCH ×2 (09:11→20:30)
[2022-05-24] MEDS: FOLIC ACID 1MG TAB PO SCH (09:11)
[2022-05-24] MEDS: PANTOPRAZOLE 40MG TAB (PROTONIX) PO SCH (09:11)
[2022-05-24] MEDS: ESCITALOPRAM OXALATE 5MG TABLET (LEXAPRO) PO SCH (09:11)
[2022-05-24] MEDS: CARVedilol 3.125 MG TAB PO SCH ×2 (09:12→20:31)
[2022-05-24] MEDS: ACETAMINOPHEN 325 MG TAB PO SCH ×3 (09:12→20:33)
[2022-05-24] MEDS: CLOPIDOGREL 75 MG TAB PO SCH (09:17)
[2022-05-24] MEDS: LACTOBACILLUS ACIDOPHILUS CAP (BACID) PO SCH ×2 (09:17→18:00)
[2022-05-24] MEDS: REMEDY PHYTOPLEX Z-GUARD PASTE 113GM TUBE (FROM STOREROOM PRODUCT) TOP SCH ×4 (09:24→20:03)
[2022-05-24] MEDS: LACTIC ACID 12% LOTION 225 GM BTL TOP SCH (09:24)
[2022-05-24] MEDS: TORSEMIDE 20 MG TAB PO SCH (12:00)
[2022-05-24 12:28] VITALS: BP_SYST 110; BP_DIAS 57; BP_DIAS 87
[2022-05-24] MEDS: DARBEPOETIN 100MCG/0.5ML *NON-DIALYSIS* SYRINGE SC SCH (13:55)
[2022-05-24 14:00] VITALS: BP 118/57
[2022-05-24 20:00] VITALS: BP 141/66
[2022-05-24] MEDS: SENNA 8.6 MG TAB (SENOKOT) PO SCH (20:03)
[2022-05-24] MEDS: TAMSULOSIN 0.4 MG CAP PO SCH (20:30)
[2022-05-24] MEDS: AMITRIPTYLINE 25MG TABLET PO SCH (20:30)
[2022-05-24] MEDS: ATORVASTATIN 20 MG TAB PO SCH (20:30)
[2022-05-24] MEDS: EZETIMIBE 10MG TABLET (ZETIA) PO SCH (20:31)
[2022-05-24] MEDS: FINASTERIDE 5MG TAB PO SCH (20:31)
[2022-05-24] MEDS: RAMELTEON 8 MG TAB (ROZEREM) PO PRN (20:32)
[2022-05-25 06:00] VITALS: BP 157/78
[2022-05-25] MEDS: COMBIVENT RESPIMAT 100-20MCG INHALER 4GM INH SCH ×3 (07:23→21:18)
[2022-05-25] MEDS: INSULIN LISPRO (NovoLOG) PER UNIT SC SCH ×4 (07:30→19:55)
[2022-05-25] MEDS: NYSTATIN 100,000 UNITS/GM TOPICAL PWD 15GM TOP SCH ×2 (09:00→19:55)
[2022-05-25] MEDS: MIRALAX *UNIT DOSE* 17GM PACKET PO SCH ×2 (09:00→19:56)
[2022-05-25] MEDS: LACTIC ACID 12% LOTION 225 GM BTL TOP SCH (09:00)
[2022-05-25] MEDS: DOCUSATE SODIUM 100MG CAPSULE PO SCH ×2 (09:00→19:56)
[2022-05-25] MEDS: NYSTATIN 500,000U/5ML SUSP UDC SSP SCH ×4 (09:01→19:56)
[2022-05-25] MEDS: PANTOPRAZOLE 40MG TAB (PROTONIX) PO SCH (09:01)
[2022-05-25] MEDS: FOLIC ACID 1MG TAB PO SCH (09:01)
[2022-05-25] MEDS: CARVedilol 3.125 MG TAB PO SCH ×2 (09:01→20:04)
[2022-05-25] MEDS: ACETAMINOPHEN 325 MG TAB PO SCH ×3 (09:02→19:56)
[2022-05-25] MEDS: SUCRALFATE 1 GM TAB PO SCH ×2 (09:02→20:04)
[2022-05-25] MEDS: APIXABAN 2.5 MG TAB (ELIQUIS) PO SCH ×2 (09:02→20:04)
[2022-05-25] MEDS: ESCITALOPRAM OXALATE 5MG TABLET (LEXAPRO) PO SCH (09:02)
[2022-05-25] MEDS: LEVEMIR (INSULIN DETEMIR) 1 UNITS/0.01ML SC SCH ×3 (09:03→09:16)
[2022-05-25] MEDS: LACTOBACILLUS ACIDOPHILUS CAP (BACID) PO SCH ×2 (09:03→17:18)
[2022-05-25] MEDS: MAGNESIUM OXIDE 400MG TAB (MAG-OX) PO SCH ×2 (09:03→20:04)
[2022-05-25] MEDS: CLOPIDOGREL 75 MG TAB PO SCH (09:03)
[2022-05-25] MEDS: allopurinoL 100 MG TAB PO SCH (09:03)
[2022-05-25] MEDS: REMEDY PHYTOPLEX Z-GUARD PASTE 113GM TUBE (FROM STOREROOM PRODUCT) TOP SCH ×4 (09:04→19:55)
[2022-05-25] MEDS: TORSEMIDE 20 MG TAB PO SCH (11:57)
[2022-05-25 14:00] VITALS: BP 122/64
[2022-05-25] MEDS: SENNA 8.6 MG TAB (SENOKOT) PO SCH (19:56)
[2022-05-25 20:00] VITALS: BP 154/72
[2022-05-25] MEDS: FINASTERIDE 5MG TAB PO SCH (20:04)
[2022-05-25] MEDS: RAMELTEON 8 MG TAB (ROZEREM) PO PRN (20:04)
[2022-05-25] MEDS: AMITRIPTYLINE 25MG TABLET PO SCH (20:04)
[2022-05-25] MEDS: ATORVASTATIN 20 MG TAB PO SCH (20:04)
[2022-05-25] MEDS: EZETIMIBE 10MG TABLET (ZETIA) PO SCH (20:04)
[2022-05-25] MEDS: TAMSULOSIN 0.4 MG CAP PO SCH (20:04)
[2022-05-26 06:00] VITALS: BP 154/80
[2022-05-26] MEDS: INSULIN LISPRO (NovoLOG) PER UNIT SC SCH (07:30)
[2022-05-26] MEDS: LACTOBACILLUS ACIDOPHILUS CAP (BACID) PO SCH (07:38)
[2022-05-26 07:39] VITALS: BP 154/80
[2022-05-26] MEDS: allopurinoL 100 MG TAB PO SCH (07:39)
[2022-05-26] MEDS: MAGNESIUM OXIDE 400MG TAB (MAG-OX) PO SCH (07:39)
[2022-05-26] MEDS: SUCRALFATE 1 GM TAB PO SCH (07:39)
[2022-05-26] MEDS: CARVedilol 3.125 MG TAB PO SCH (07:39)
[2022-05-26] MEDS: CLOPIDOGREL 75 MG TAB PO SCH (07:39)
[2022-05-26] MEDS: FOLIC ACID 1MG TAB PO SCH (07:39)
[2022-05-26] MEDS: ACETAMINOPHEN 325 MG TAB PO SCH (07:39)
[2022-05-26] MEDS: ESCITALOPRAM OXALATE 5MG TABLET (LEXAPRO) PO SCH (07:40)
[2022-05-26] MEDS: PANTOPRAZOLE 40MG TAB (PROTONIX) PO SCH (07:40)
[2022-05-26] MEDS: APIXABAN 2.5 MG TAB (ELIQUIS) PO SCH (07:40)
[2022-05-26] MEDS: LACTIC ACID 12% LOTION 225 GM BTL TOP SCH (07:41)
[2022-05-26] MEDS: REMEDY PHYTOPLEX Z-GUARD PASTE 113GM TUBE (FROM STOREROOM PRODUCT) TOP SCH (07:45)
[2022-05-26] MEDS: MIRALAX *UNIT DOSE* 17GM PACKET PO SCH (07:45)
[2022-05-26] MEDS: NYSTATIN 100,000 UNITS/GM TOPICAL PWD 15GM TOP SCH (07:45)
[2022-05-26] MEDS: NYSTATIN 500,000U/5ML SUSP UDC SSP SCH (07:45)
[2022-05-26] MEDS: DOCUSATE SODIUM 100MG CAPSULE PO SCH (07:45)
[2022-05-26] MEDS ORDERED: CEFD300C41 PO (12:59)
== END 2022-05-26 09:30 | disposition home or self-care (01) | DRG 560 ==
LOC: M PM&R 22:30
PROVIDERS: ADMIT Physical Medicine & Rehabilitation; ATTEND Physical Medicine & Rehabilitation
PROC: 0JPT3XZ Removal of Tunneled Vascular Access Device from Trunk Subcutaneous Tissue and Fascia, Percutaneous Approach (ICD-10-PCS; principal; 2022-05-07 10:00)
DX: Z47.81 Encounter for orthopedic aftercare following surgical amputation (principal); N18.4 Chronic kidney disease, stage 4 (severe); I13.0 Hypertensive heart and chronic kidney disease with heart failure and stage 1 through stage 4 chronic kidney disease, or unspecified chronic kidney disease; L97.429 Non-pressure chronic ulcer of left heel and midfoot with unspecified severity; I50.42 Chronic combined systolic (congestive) and diastolic (congestive) heart failure; E11.51 Type 2 diabetes mellitus with diabetic peripheral angiopathy without gangrene; E11.42 Type 2 diabetes mellitus with diabetic polyneuropathy; E11.22 Type 2 diabetes mellitus with diabetic chronic kidney disease; D64.9 Anemia, unspecified; I25.10 Atherosclerotic heart disease of native coronary artery without angina pectoris; I35.0 Nonrheumatic aortic (valve) stenosis; E78.5 Hyperlipidemia, unspecified; I48.0 Paroxysmal atrial fibrillation; N40.0 Benign prostatic hyperplasia without lower urinary tract symptoms; E11.649 Type 2 diabetes mellitus with hypoglycemia without coma; E11.622 Type 2 diabetes mellitus with other skin ulcer; E11.621 Type 2 diabetes mellitus with foot ulcer; K59.00 Constipation, unspecified; L89.152 Pressure ulcer of sacral region, stage 2; R33.9 Retention of urine, unspecified; G47.33 Obstructive sleep apnea (adult) (pediatric); M10.9 Gout, unspecified; E61.1 Iron deficiency; F32.A Depression, unspecified; N32.9 Bladder disorder, unspecified; Z74.1 Need for assistance with personal care; Z89.611 Acquired absence of right leg above knee; Z74.09 Other reduced mobility; Z95.5 Presence of coronary angioplasty implant and graft; Z79.4 Long term (current) use of insulin; Z79.899 Other long term (current) drug therapy; Z91.013 Allergy to seafood; Z90.5 Acquired absence of kidney; Z86.73 Personal history of transient ischemic attack (TIA), and cerebral infarction without residual deficits; Z85.46 Personal history of malignant neoplasm of prostate; Z79.01 Long term (current) use of anticoagulants